=== PATIENT | male | born 1985 | race Two or more races ===

== ENCOUNTER 2020-05-20 07:26 | Outpatient (REF) | payer OTHER, SELFPAY ==
[2020-05-20 08:06] LABS: MANUAL DIFF FLAG NO
[2020-05-20 08:16] LABS: Basophils Percent Auto 0.5 % (0-2); Eosinophils Absolute Auto 0.2 X10*3/uL (0.0-0.4); Eosinophils Percent Auto 3.9 % (0-4); Hematocrit 43.1 % (42-52); Hemoglobin 15.4 g/dl (14.0-18.0); Imm Gran Abs Auto 0.02 X10*3/uL (0.00-0.03); Imm Gran Pct Auto 0.4 % (0.0-0.4); Lymphocytes Absolute Auto 2.2 X10*3/uL (1.2-4.9); Mean Corpuscular HGB Conc 35.7 g/dl (31.0-36.0); Mean Corpuscular Hemoglobin 32.4 pg (27.0-33.0); Mean Corpuscular Volume 90.7 fL (80-98); Mean Platelet Volume 9.4 fL (9.4-12.4); Monocytes Absolute Auto 0.4 X10*3/uL (0.1-1.2); Monocytes Percent Auto 7.9 % (2-11); Neutrophils Absolute Auto 2.6 X10*3/uL (2.0-8.3); Neutrophils Percent Auto 47.3 % (45-73); Platelet Count 266 X10*3/uL (160-400); Red Blood Count 4.75 X10*6/uL (4.60-5.80); Red Cell Distribution Width 12.2 % (11.0-16.0); White Blood Count 5.6 X10*3/uL (4.8-10.8)
[2020-05-20 08:39] LABS: Alanine Aminotransferase 12 U/L (0-40); Albumin Level 4.6 g/dL (3.5-5.0); Alkaline Phosphatase 63 U/L (39-117); Anion Gap 10 (12-20); Aspartate Amino Transferase 15 U/L (5-37); Bilirubin Total 0.9 mg/dL (0.0-1.0); Blood Urea Nitrogen 9 mg/dL (9-16); Calcium 9.2 mg/dL (8.4-10.2); Carbon Dioxide 30 mmol/L (22-29); Chloride 104 mmol/L (96-108); Cholesterol 161 mg/dL; Estimated Glomerular Filt Rate > 60; Glucose Fasting 87 mg/dL (60-99); HDL Cholesterol 44 mg/dL; LDL Cholesterol Calculated 100 mg/dl; Potassium 4.5 mmol/l (3.3-5.1); Sodium 139 mmol/L (135-145); Total Protein 6.9 g/dL (6.5-8.0); Triglycerides 88 mg/dL
[2020-05-20 09:01] LABS: Thyroid Stimulating Hormone 0.74 mIU/mL (0.32-4.0)
== END 2020-05-20 07:27 | disposition home or self-care (01) ==
LOC: HO.LAB 07:26
PROVIDERS: PCP Physician Assistant; Visit Provider Physician Assistant
DX: Z13.1 Encounter for screening for diabetes mellitus (principal); Z13.29 Encounter for screening for other suspected endocrine disorder; Z13.220 Encounter for screening for lipoid disorders
CPT/HCPCS: 36415; 80053; 80061; 84443; 85025

== ENCOUNTER 2020-09-18 08:00 | Outpatient (RCR) | payer OTHER, SELFPAY ==
--- NOTE | 2020-08-21 09:24 | MHC.PT.EP ---
[facility] [place] Office [place] Office [place] Office [address] Halima Gordillo [address] [phone] F: [phone] F: [phone] F: [phone] F: [phone] Physical Therapy Plan of Care Date of Evaluation: 08/21/20 Date of Surgery: Diagnosis: low back pain Assessment: The patient arrived with reduced thoracic mobility, and painful trunk movements. He has normal mobility in his shoulders bilaterally. He has decreased cervical mobility. He has referred pain to his rib cage with thoracic movement which is consistent with a thoracic posterolateral derangement. He felt more central back pain with left thoracic rotation which indicates he likely has a lateral component. He has a long torso and demonstrates poor sitting posture. He will benefit from posture education, body mechanics training, and manual therapy to help reduce his pain. Frequency and Duration: The patient will be seen 2x/week x 4 weeks Short Term Goals: 2 weeks 1.Pt to able to demonstrate proper sitting posture with the use of a lumbar roll to decrease aggravating factors. 2.Pt to be able to demonstrate proper posture for common leisure activities such as crocheting and phone/tablet use. 3.For the patient to demonstrate proper upright sitting posture with use of the lumbar roll to improve compliance and carryover. 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 Pt to be able to return to normal PLOF without limiting pain. 2. Pt to be able to return to overhead reaching without pain or limitation. 3. Pt to be able to manage his pain with selected exercise and stretching regime. Treatment Plan: Modalities to reduce pain, spasms and effusion. Manual therapy to restore motion and function. Therapeutic exercise to improve strength and flexibility. Neuromuscular re-education for posture and balance. Therapeutic activities to return to functional activities of daily living. Electronically signed by: Tiffanie Feldman PT DPT Please sign and return to therapist. Thank you for your referral.
--- NOTE | 2020-09-18 10:38 | MHC.PT.DC ---
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 Pt reports no longer having pain. He has returned to PLOF. He feels muscular pain after a heavy day of work which he reports as normal. He has increased tightness in his thoracic spine which we have addressed with a HEP. He has been issued a HEP including theraband, strengthening exercises which he has shown independence. Electronically signed by: Tiffanie Feldman PT DPT Please sign and return to therapist. Thank you for your referral.
== END 2020-10-12 11:00 | disposition home or self-care (01) ==
LOC: HO.PT 08:00
PROVIDERS: PCP Physician Assistant; Visit Provider Physician Assistant
DX: M54.5 Low back pain (principal); M51.9 Unspecified thoracic, thoracolumbar and lumbosacral intervertebral disc disorder
CPT/HCPCS: 97110; 97112; 97140; 97162

== ENCOUNTER → 2021-07-16 13:00 | Outpatient (REF) | payer OTHER, SELFPAY ==
--- NOTE | 2021-07-16 13:05 | ECG_ITS ---
Hook-up date: 2021-07-16 13:10:00 Duration: 47:59:00 Test Indications: PALPITATIONS Medications: [id number] QRS complexes 11 Ventricular ectopics which represent <1 % of total QRS comp. 17 Supraventricular ectopics which represent <1 % of total QRS comp. * Paced QRS complexs which represent % of total QRS comp. VENTRICULAR ECTOPY 11 Isolated 0 Bigeminal Cycles 0 Couplets 0 Runs 0 Beats in Runs * Beats LONGEST at * BPM at :: -- * Beats FASTEST at * BPM at :: -- SUPRAVENTRICULAR ECTOPY 10 Isolated 0 Couplets 1 Runs 7 Beats in Runs 7 Beats LONGEST at 140 BPM at 13:11:46 2021-07-16 7 Beats FASTEST at 140 BPM at 13:11:46 2021-07-16 HEART RATES 43 MIN at 03:58:40 2021-07-17 74 AVG 159 MAX at 11:16:54 2021-07-17 LONGEST RR 1.4720 secs at 05:11:15 2021-07-18 S-T LEVELS Channel 1 - 128 mm at 13:10:00 2021-07-16 - 128 mm at 13:10:00 2021-07-16 Channel 2 - 128 mm at 13:10:00 2021-07-16 - 128 mm at 13:10:00 2021-07-16 Channel 3 - 128 mm at 03:22:91 -- - 128 mm at 03:22:91 Basic rhythm Normal sinus rhythm No long pause or profound bradycardia Rare ectopics One 7 beat run of SVT at 140 bpm Patient did not report any symptoms in the diary Referred By: Randell Solis Overread By: MARÍA FU MD
== END ==
LOC: HO.CARD 13:00
PROVIDERS: Visit Provider Physician Assistant
DX: R00.2 Palpitations (principal)
CPT/HCPCS: 93226

== ENCOUNTER 2021-07-24 21:26 | Emergency (ER) | payer OTHER, SELFPAY ==
[2021-07-24 22:37] VITALS: BP 120/62; PULSE 88; RESP 18; TEMP 38.3; O2SAT 98
[2021-07-24 23:09] LABS: COVID-19 Test Positive (Negative)
--- NOTE | 2021-07-24 23:34 | ED_ITS ---
HPI - General Adult General Chief complaint: Back Pain/Injury Stated complaint: flu like symptoms Time Seen by Provider: 07/24/21 23:33 Source: patient and per diem interpreter Mode of arrival: ambulatory Limitations: no limitations History of Present Illness HPI narrative: 36-year-old male walked in for evaluation of flu-like symptoms. Patient presented with subjective fever, generalized body ache, back pain, bilateral leg pain, very tired and fatigued, sneezing, no coughing or shortness of breath, patient did not take his COVID vaccination, no recent travel, no recent exposure to sick contacts. Patient tested positive for COVID today. Related Data Home Medications Medication Instructions Recorded Confirmed albuterol sulfate 90 mcg/actuation INHALATION 03/08/21 06/17/21 aerosol inhaler Previous Rx's Medication Instructions Recorded baclofen 20 mg tablet 20 mg PO BID 30 Days #60 tab 06/17/21 citalopram 10 mg tablet (Celexa) 10 mg PO DAILY 30 Days #30 tab 06/17/21 omeprazole 20 mg capsule,delayed 20 mg PO DAILY 30 Days #30 cap 06/17/21 release Allergies Allergy/AdvReac Type Severity Reaction Status Date / Time No Known Allergies Allergy Verified 06/17/21 11:05 [No Known Allergies*] Review of Systems Review of Systems: All other systems are reviewed and are negative Constitutional: Reports as per HPI and Reports no additional constitutional complaints Eyes: Reports as per HPI and Reports no additional eye complaints Reports system reviewed and no additional complaints, except as documented Cardiovascular: Reports as per HPI and Reports no additional cardiovascular complaints Respiratory: Reports as per HPI and Reports no additional respiratory complaints Gastrointestinal: Reports as per HPI and Reports no additional gastrointestinal complaints Genitourinary: Reports no additional female genitourinary complaints Musculoskeletal: Reports no additional musculoskeletal complaints Skin/Breast: Reports system reviewed and no additional complaints, except as docu Psychiatric: Reports no additional psychiatric complaints Endocrine: Reports no additional endocrine complaints Hematologic/Lymphatic: Reports no additional hematologic/lymphatic complaints Allergic/Immunologic: Reports no additional allergic/immunologic complaints Reports system reviewed and no additional complaints, except as documented and Reports Abnormal speech present FOR[facility]LY [facility], [facility] Past Medical History Surgical History No pertinent past surgical history Family History Family History Father Hypertension Mother Murder Maternal Grandmother CAD (coronary artery disease) Hypertension Sister In good health Son In good health Social History Social History Housing: Apartment Alcohol intake: never Patient Tobacco Use Status: Current everyday Tobacco user Tobacco use type: Cigarette Cigarettes Per Day: 10 e-Cigarette/Vaping Use: Never Used Second Hand Smoke Exposure: No Advance Directives: No service: No Current occupational status: employed Current occupational exposures/hazards: No Physical Exam Vital Signs: Vital Signs: Last Vital Signs Temp 101 F H 07/24/21 22:37 Pulse 88 07/24/21 22:37 Resp 18 07/24/21 22:37 BP 120/62 07/24/21 22:37 Pulse Ox 98 07/24/21 22:37 BMI result Body Mass Index 20.0 vital signs have been reviewed as appeared to be correct. Blood pressure normal. Heart rate normal. Respiration rate normal. Temperature elevated. Oxygen saturation normal. Appearance: Alert. Oriented X3. No acute distress. Head: Normal external exam. Normocephalic. Atraumatic. No Davenport signs noted. No raccoon eyes noted Eyes: PERRLA. EOMI. Conjunctiva and sclera normal. Eyelids normal. ENT: TM's Normal. Pharynx normal. Uvula midline. Moist mucous membranes. No trismus noted. No drooling noted. No muffled voice noted. Neck: Normal inspection. Neck supple. FROM. No adenopathy. Thyroid Normal. No meningeal signs. No neck mass noted. CVS: Normal heart rate and rhythm. Heart sound normal. No murmurs noted. Pulses normal throughout. Respiratory: No respiratory distress. Painless inspiration. Breath sounds normal. No wheezes/rales/rhonchi noted. Chest nontender. No accessory muscle usage noted or decreased air movement noted. Abdomen: Soft and nontender. Bowel sounds normal in all 4 quadrants. No distention noted. No organomegaly noted. No visible injury noted. Back: No CVA tenderness. Full range of motion noted. Skin: Skin warm and dry. Normal skin color. Normal skin turgor. No rashes/lesions/lacerations noted. Extremities: No lower extremity edema. Extremities exhibit normal range of motion. Extremities nontender. Neuro: Oriented X 3. Cranial nerve exam: II-XII are grossly intact No motor deficit. No sensory deficit. Reflexes normal. Course Course Course Narrative: assessment and plan. 36-year-old male came in with flu-like symptoms, patient tested positive for COVID, patient was stable vital sign, patient was instructed to take Tylenol for fever, patient lives home with his family and 2 children patient was instructed to quarantine for the next 2 weeks using face mask and frequent hand washing and return if difficulty breathing. Medical Decision Making Lab Data Lab results reviewed: Yes I reviewed the patient's lab results. Labs: Lab Results 07/24/21 Range/Units 22:51 COVID-19 (CARMELITA) Positive A (Negative) COVID-19 Clin Com See Note Discharge Plan Discharge Clinical Impression: COVID-19 virus infection Patient Disposition: Home, Self-Care Instructions: COVID-19 (Coronavirus Disease 2019) (ED) Additional Instructions: use Tylenol if needed for fever, stay home and self quarantine for the next 2 weeks, use of face mask at all times, frequent hand washing. Prescriptions: No Action albuterol sulfate 90 mcg/actuation HFA aerosol inhaler inhalation RF: 0 omeprazole 20 mg capsule,delayed release(DR/EC) 20 mg PO DAILY 30 Days Qty: 30 RF: 0 baclofen 20 mg tablet 20 mg PO BID 30 Days Qty: 60 RF: 3 citalopram [Celexa] 10 mg tablet 10 mg PO DAILY 30 Days Qty: 30 RF: 3 Referrals: Randell Solis PA-C [Primary Care Provider] - 2 days
[2021-07-25] MEDS: Acetaminophen 325 MG TABLET 650 MG PO (00:28)
--- NOTE | 2021-07-25 00:33 | PC.NURSE ---
PT WAS EVALED BY DR HUBBARD. PT POSITIVE FOR COVID. MED WITH TYLENOL FOR FEVER. DRY COUGH NOTED. RESP UNLABORED. TALKING IN FULL SENTENCES. MAHONEY. AMB WITH STEADY GAIT.
== END 2021-07-25 00:36 | disposition home or self-care (01) ==
PROVIDERS: Emergency Provider Emergency Medicine; PCP Physician Assistant
DX: U07.1 COVID-19 (principal); B34.9 Viral infection, unspecified; R50.9 Fever, unspecified; F17.200 Nicotine dependence, unspecified, uncomplicated
CPT/HCPCS: 36415; 87635; 99283

== ENCOUNTER 2021-08-27 08:00 | Outpatient (RCR) | payer OTHER, SELFPAY ==
--- NOTE | 2021-08-27 09:00 | MHC.PT.EP ---
[facility] [place] Office [place] Office [place] Office [address] Halima Gordillo [address] [phone] F: [phone] F: [phone] F: [phone] F: [phone] Physical Therapy Plan of Care Date of Evaluation: Date of Surgery: NA Diagnosis: Segmental and somatic dysfunction of sacral region Assessment: Bran is a 36 year old male who is referred to PT for segmental and somatic dysfunction of sacral region . Bran reports of having insidious onset of back pain about 2 months back. Denies any trauma or fall. On PT examination he presents with 8/10 pain with sitting, standing for more than an hour (needed for work), and bending, TTP along thoraco-lumbar paraspinals, decreased ROM, decreased muscle strength/altered motor control and altered posture. Due to these impairments he has pain/ difficulty with ADLS. 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 He would benefit from skilled PT to address the aforementioned impairments and improve tolerance to functional activities. Frequency and Duration: The patient will be seen 2/week for 5 weeks Short Term Goals: 1. Pt will have 50% decrease in pain which will enable him to sit for meals/ driving in 2 weeks. 2. Pt will be able to move trunk through all planes of motion without pain which will enable him to dress lower body without pain in 3 weeks Fdc Goals: 1. Pt will demonstrate an increase in muscle strength and improve motor control which will enable him to perform work related duties without pain in 4 weeks. 2. Pt will be demonstrate good posture and body mechanics and will be independent with HEP for prevention of symptoms in 5 weeks Treatment Plan: Modalities to reduce pain, spasms and effusion. Manual therapy to restore motion and function. Therapeutic exercise to improve strength and flexibility. Neuromuscular re-education for posture and balance. Therapeutic activities to return to functional activities of daily living. Electronically signed by: Cris Pierre PT DPT Please sign and return to therapist. Thank you for your referral.
--- NOTE | 2021-09-22 14:42 | MHC.PT.DC ---
[facility] [place] Office [place] Office [place] Office [address] Halima Gordillo [address] [phone] F: [phone] F: [phone] F: [phone] F: [phone] Physical Therapy Discharge Report Diagnosis: Segmental and somatic dysfunction of sacral region Date of Surgery: NA Date of Evaluation: 08/27/21 Date of Discharge: 09/22/21 Treatments to Date: 1 Cancellations to Date: 0 No Shows to Date: 0 Discharge Status: Visit Non-compliance Discharge Summary: Bran did not arrive for any PT visits following evaluation. He is therefore being d/c for non compliance. Electronically signed by: Cris Pierre, PT DPT Please sign and return to therapist. Thank you for your referral.
== END 2021-09-22 14:43 | disposition home or self-care (01) ==
LOC: HO.PT 08:00
PROVIDERS: PCP Physician Assistant; Visit Provider Physician Assistant
DX: M99.04 Segmental and somatic dysfunction of sacral region (principal)
CPT/HCPCS: 97110; 97161

== ENCOUNTER 2022-01-11 05:11 | Emergency (ER) | payer OTHER, SELFPAY ==
[2022-01-11 05:30] VITALS: BP 128/73; PULSE 71; RESP 16; O2SAT 99; BMI 21.9
[2022-01-11 05:56] LABS: COVID-19 Test Negative (Negative)
[2022-01-11 05:56] LABS: IDNOW Serial# 16C4AD1C; Influenza A Negative (Negative); Influenza B2 Negative (Negative)
--- NOTE | 2022-01-11 06:26 | ED.GENADULT ---
HPI - General Adult General Chief complaint: General Medical Stated complaint: headache & cough Time Seen by Provider: 01/11/22 05:22 Source: patient Mode of arrival: ambulatory History of Present Illness HPI narrative: 36-year-old male without significant past medical history presents with complaints of headache, cough and states that his is positive for COVID-19. He otherwise denies sore throat, fever, chills, GI or symptoms. Related Data Home Medications Medication Instructions Recorded Confirmed albuterol sulfate 90 mcg/actuation INHALATION 03/08/21 08/11/21 aerosol inhaler Previous Rx's Medication Instructions Recorded omeprazole 20 mg capsule,delayed 20 mg PO DAILY 30 Days #30 cap 06/17/21 release baclofen 20 mg tablet 20 mg PO BID 30 Days #60 tab 08/11/21 citalopram 10 mg tablet (Celexa) 10 mg PO DAILY 30 Days #30 tab 08/11/21 Allergies Allergy/AdvReac Type Severity Reaction Status Date / Time No Known Allergies Allergy Verified 08/11/21 12:16 [No Known Allergies*] Review of Systems Review of Systems: Pertinent positives and negatives as stated in HPI 10 point review of systems is otherwise negative. PMFSH Past Medical History Source: nursing notes reviewed Surgical History No pertinent past surgical history Family History Family History Father Hypertension Mother Murder Maternal Grandmother CAD (coronary artery disease) Hypertension Sister In good health Son In good health Social History Social History Housing: Apartment Alcohol intake: never Patient Tobacco Use Status: Current everyday Tobacco user Tobacco use type: Cigarette Cigarettes Per Day: 10 e-Cigarette/Vaping Use: Never Used Second Hand Smoke Exposure: No Advance Directives: No Advance Directives Information Provided: Yes service: No Current occupational status: employed Current occupational exposures/hazards: No Physical Exam ED Vital Signs: Vital Signs - 24 hr 01/11/22 05:30 Pulse Rate 71 Respiratory Rate 16 Blood Pressure 128/73 Pulse Oximetry 99 BMI result Body Mass Index 21.9 VITAL SIGNS: Reviewed. GENERAL: Well developed, well nourished, in no acute distress. HEAD: Normocephalic/atraumatic EYES: PERRLA, EOMI EARS: Ext canals without abnormality, TMs non-bulging and non-erythematous NOSE: Nares patent bilateral OROPHARYNX: no oral lesions noted, posterior pharynx clear and non-erythematous without noted tonsillar enlargement/erythema/exudates NECK: Supple, no adenopathy LUNGS: Normal breath sounds. No adventitious sounds or accessory muscle use. SpO2<99> CARDIOVASCULAR: Regular rate and rhythm without noted murmurs ABDOMEN: Soft, non-tender, non-distended with bowel sounds. NEUROLOGIC: Alert and oriented x 4. Strength and sensation to light touch were grossly intact x 4. Course Course Course Narrative: 36-year-old male with history and clinical presentation of for review of all investigations of viral syndrome and although patient is negative for COVID-19 in influenza today he was instructed to isolate as per CDC guidelines. Medical Decision Making Lab Data Labs: Lab Results 01/11/22 01/11/22 Range/Units 05:35 05:36 COVID-19 (CARMELITA) Negative (Negative) COVID-19 Clin Com See Note Influenza Type A (JAYLAN) Negative (Negative) Influenza Type B (JAYLAN) Negative (Negative) Influenza A & B Note See Note Discharge Plan Discharge Clinical Impression: Viral syndrome, Lab test negative for COVID-19 virus Patient Disposition: Home, Self-Care Instructions: Viral Syndrome (ED), COVID-19 (Coronavirus Disease 2019) (ED) Additional Instructions: 1. Aunque rios prueba de COVID-19 es negativa, tiene enedina exposici?n positiva a COVID-19 de rios esposa y debe aislarse kareem 5 d?as seg?n las pautas actuales de los CDC. 2. Recomendar Tylenol/ibuprofeno de venta radha seg?n sea necesario para el dolor de ermias, tos, temperaturas superiores a 100.4. 3. Seguimiento con rios proveedor de atenci?n primaria en los pr?ximos 1-2 d?as a kennedy?s de telemedicina. Regrese a la nolvia de emergencias por empeoramiento de los s?ntomas. Prescriptions: No Action albuterol sulfate 90 mcg/actuation HFA aerosol inhaler inhalation 0RF omeprazole 20 mg capsule,delayed release(DR/EC) 20 mg PO DAILY 30 Days Qty: 30 0RF citalopram [Celexa] 10 mg tablet 10 mg PO DAILY 30 Days Qty: 30 3RF baclofen 20 mg tablet 20 mg PO BID 30 Days Qty: 60 3RF Referrals: Dean,James Shukla MD [Primary Care Provider] - Stand Alone Forms: Work/School Release Print Language: Turkmen
== END 2022-01-11 07:15 | disposition home or self-care (01) ==
PROVIDERS: Emergency Provider Student in an Organized Health Care Education/Training Program; PCP Internal Medicine
DX: B34.9 Viral infection, unspecified (principal); Z20.822 Contact with and (suspected) exposure to COVID-19; R51.9 Headache, unspecified; F17.200 Nicotine dependence, unspecified, uncomplicated
CPT/HCPCS: 87502; 87635; 99282; 99283

== ENCOUNTER 2022-03-14 09:24 | Outpatient (REF) | payer OTHER, SELFPAY ==
--- NOTE | ~2022-03-14 | XR_ITS ---
EXAMINATION: XR CERVICAL SPINE XR LUMBAR SPINE CLINICAL INFORMATION: Low back pain. COMPARISON: None TECHNIQUE: 3 views lumbar spine and 4 views cervical spine. FINDINGS: LUMBAR SPINE: There is normal lumbar lordosis. The vertebral heights, alignment and disc heights are normal. No visible acute fracture, dislocation or subluxation seen. The soft tissues are normal. CERVICAL SPINE: There is normal cervical lordosis. The vertebral heights, alignment and disc heights are normal. There is no visible acute fracture, dislocation or subluxation seen. The prevertebral soft tissues are normal. XR/XR cervical spine 3V IMPRESSION: Unremarkable cervical spine exam. Unremarkable lumbar spine exam.
--- NOTE | ~2022-03-14 | XR_ITS ---
EXAMINATION: XR CERVICAL SPINE XR LUMBAR SPINE CLINICAL INFORMATION: Low back pain. COMPARISON: None TECHNIQUE: 3 views lumbar spine and 4 views cervical spine. FINDINGS: LUMBAR SPINE: There is normal lumbar lordosis. The vertebral heights, alignment and disc heights are normal. No visible acute fracture, dislocation or subluxation seen. The soft tissues are normal. CERVICAL SPINE: There is normal cervical lordosis. The vertebral heights, alignment and disc heights are normal. There is no visible acute fracture, dislocation or subluxation seen. The prevertebral soft tissues are normal. XR/XR lumbar spine 2-3V IMPRESSION: Unremarkable cervical spine exam. Unremarkable lumbar spine exam.
== END 2022-03-14 09:25 | disposition home or self-care (01) ==
LOC: HO.XRAY 09:24
PROVIDERS: PCP Physician Assistant; Visit Provider Physician Assistant
DX: M54.50 Low back pain, unspecified (principal); M54.2 Cervicalgia
CPT/HCPCS: 72040; 72100

== ENCOUNTER 2022-09-08 04:13 | Emergency (ER) | payer OTHER, SELFPAY ==
[2022-09-08 04:22] VITALS: BP 120/66; PULSE 53; RESP 16; TEMP 36.8; O2SAT 98; BMI 21.9
--- NOTE | 2022-09-08 04:54 | PC.NURSE ---
pt resting on stretcher in room at this time, reports pain in his face and teeth, he reports he stopped taking the antibiotic yesterday. no respiratory distress at this time
[2022-09-08 05:16] VITALS: BP 129/77; PULSE 64; RESP 19; O2SAT 99
--- NOTE | 2022-09-08 05:17 | ED.GENADULT ---
HPI - General Adult General Chief complaint: Allergic Reaction Stated complaint: took meds, possible allergic reaction Time Seen by Provider: 09/08/22 05:06 Source: patient Mode of arrival: ambulatory Limitations: no limitations History of Present Illness HPI narrative: patient dental caries of both right upper and lower multiple teeth patient to clindamycin and naproxen now complaining of upper abdominal pain and still pain on the right side of the face no fever no chills his pain med is not working Related Data Previous Rx's Medication Instructions Recorded naproxen 500 mg tablet 500 mg PO BID 90 days #180 tabs 02/02/22 nicotine 14 mg/24 hr daily 1 patch transdermal DAILY 14 days 02/02/22 transdermal patch #14 ea omeprazole 20 mg capsule,delayed 20 mg PO DAILY 30 days #30 caps 03/22/22 release albuterol sulfate 90 mcg/actuation 1 puff inhalation Q8H 30 days #8.5 08/04/22 aerosol inhaler (Ventolin HFA) grams baclofen 20 mg tablet 20 mg PO BID 30 days #60 tabs 08/04/22 citalopram 20 mg tablet (Celexa) 20 mg PO DAILY 30 days #30 tabs 08/04/22 ibuprofen 800 mg tablet 800 mg PO TID 30 days #90 tabs 08/04/22 nicotine (polacrilex) 2 mg gum 2 mg buccal Q2H PRN nicotine 08/04/22 cravings 30 days #110 ea propranolol 10 mg tablet 10 mg PO ONCE PRN palpatations 15 08/04/22 days #15 tabs omeprazole 40 mg capsule,delayed 40 mg PO DAILY #30 caps 09/08/22 release tramadol 50 mg tablet 50 mg PO Q6H PRN pain #20 tabs 09/08/22 Allergies Allergy/AdvReac Type Severity Reaction Status Date / Time No Known Allergies Allergy Verified 08/04/22 09:39 [No Known Allergies*] Review of Systems Review of Systems: Yes all other systems are reviewed and are negative [facility] Past Medical History Surgical History No pertinent past surgical history Family History Family History Father Hypertension Mother Murder Maternal Grandmother CAD (coronary artery disease) Hypertension Sister In good health Son In good health Social History Social History Housing: Apartment Alcohol intake: never Patient Tobacco Use Status: Current everyday Tobacco user Tobacco use type: Cigarette Cigarettes Per Day: 10 e-Cigarette/Vaping Use: Never Used Second Hand Smoke Exposure: No Advance Directives: No service: No Current occupational status: employed Current occupational exposures/hazards: No Cognitive needs: No Hearing needs: No Vision needs: No Physical Exam ED Vital Signs: Vital Signs - 24 hr 09/08/22 04:22 09/08/22 05:16 Temperature 98.3 F Pulse Rate 53 64 Respiratory Rate 16 19 Blood Pressure 120/66 129/77 Pulse Oximetry 98 99 Oxygen Delivery Method Room Air Room Air BMI result Body Mass Index 21.9 Appearance: Alert. Oriented X3. No acute distress. ENT: Pharynx normal. Oral Mucosa moist slight swelling of right maxillary area no rash noticed multiple dental caries both upper and lower teeth right side no gum swelling no signs of abscess Neck: Normal inspection. Neck supple. CVS: Normal heart rate and rhythm. Pulses normal. Respiratory: No respiratory distress. Equal air entry bilateral, Abdomen: Soft and nontender. Skin: Skin warm and dry. Normal skin color. Normal skin turgor. Extremities: No lower extremity edema. No calf tenderness Neuro: Oriented X 3. No motor deficit. Medications Administered Discontinued Medications Generic Name Dose Route Start Last Admin Trade Name Freq PRN Reason Stop Dose Admin Al Hydroxide/Mg Hydroxide 30 ml 09/08/22 05:20 09/08/22 05:41 Magnesium Hydrox/Alum Hydrox 30 Ml Oral.Susp PO 09/08/22 05:21 30 ml ONCE ONE Administration Tramadol HCl 50 mg 09/08/22 05:20 09/08/22 05:36 Tramadol Hcl 50 Mg Tablet PO 09/08/22 05:21 50 mg ONCE ONE Administration Discharge Plan Discharge Clinical Impression: Dental caries Patient Disposition: Home, Self-Care Instructions: Toothache (ED) Additional Instructions: follow-up with dentist continue pain medication and antibiotic take them after meals Prescriptions: New tramadol 50 mg tablet 50 mg PO Q6H PRN (Reason: pain) Qty: 20 0RF omeprazole 40 mg capsule,delayed release(DR/EC) 40 mg PO DAILY Qty: 30 0RF No Action omeprazole 20 mg capsule,delayed release(DR/EC) 20 mg PO DAILY 30 Days Qty: 30 3RF naproxen 500 mg tablet 500 mg PO BID 90 Days Qty: 180 1RF nicotine 14 mg/24 hr patch 24 hour 1 patch transdermal DAILY 14 Days Qty: 14 0RF citalopram [Celexa] 20 mg tablet 20 mg PO DAILY 30 Days Qty: 30 3RF propranolol 10 mg tablet 10 mg PO ONCE PRN (Reason: palpatations ) 15 Days Qty: 15 0RF ibuprofen 800 mg tablet 800 mg PO TID 30 Days Qty: 90 0RF baclofen 20 mg tablet 20 mg PO BID 30 Days Qty: 60 3RF nicotine (polacrilex) 2 mg gum 2 mg buccal Q2H PRN (Reason: nicotine cravings) 30 Days Qty: 110 0RF albuterol sulfate [Ventolin HFA] 90 mcg/actuation HFA aerosol inhaler 1 puff inhalation Q8H 30 Days Qty: 8.5 0RF Interventions: ED Discharge Assessment Last Done: 09/08/22 05:39 Discharge Date/Time: 09/08/22 05:40
[2022-09-08] MEDS: traMADoL HCL 50 MG TABLET PO (05:36)
[2022-09-08] MEDS: Magnesium Hydrox/Alum Hydrox 30 ML ORAL.SUSP PO (05:41)
== END 2022-09-08 05:40 | disposition home or self-care (01) ==
PROVIDERS: Emergency Provider Internal Medicine; PCP Physician Assistant
DX: K02.9 Dental caries, unspecified (principal)
CPT/HCPCS: 99283

== ENCOUNTER 2023-08-11 10:45 | Emergency (ER) | payer OTHER, SELFPAY ==
--- NOTE | ~2023-08-11 | US_ITS ---
EXAMINATION: US SCROTUM CLINICAL INFORMATION: Right testicular pain. COMPARISON: None available. TECHNIQUE: A sonogram of the scrotum was performed assessing rincon-scale appearance and color Doppler flow. Spectral Doppler analysis of the arterial and venous flow were performed in the testes bilaterally. FINDINGS: Right testicle is 5.5 x 2.6 x 3.9 cm. Volume 29 mL. The left testicle is 4.4 x 2.1 x 2.9 cm. Volume 15 mL. Importantly the testicles are demonstrating normal arterial and venous flow. Symmetrical. Given the imaging findings I cannot suggest some diffuse minimal microlithiasis in the testicles. Note is made of a varicocele on the left. Small epididymal head cyst on the left measuring 3 mm. Excrescence off the superior aspect of the right testicle may well represent an appendix testis.. Measures 2 mm. On the imaging submitted this could extend off the epididymal head making this a mildly complex epididymal cyst. Note is made of hydroceles bilaterally small. US/US scrotum doppler IMPRESSION: Importantly the testicles are felt to be demonstrating arterial and venous flow bilaterally. The right testicle does measure larger than the left of uncertain etiology. No evidence for testicular lesion but there does appear to be possible scattered microlithiasis. Follow up with urology consultation. Varicocele noted on the left Otherwise small hydroceles are noted and epididymal head cyst on the left hand appendix testes versus complex epididymal cyst on the right
--- NOTE | ~2023-08-11 | US_ITS ---
EXAMINATION: US SCROTUM CLINICAL INFORMATION: Right testicular pain. COMPARISON: None available. TECHNIQUE: A sonogram of the scrotum was performed assessing rincon-scale appearance and color Doppler flow. Spectral Doppler analysis of the arterial and venous flow were performed in the testes bilaterally. FINDINGS: Right testicle is 5.5 x 2.6 x 3.9 cm. Volume 29 mL. The left testicle is 4.4 x 2.1 x 2.9 cm. Volume 15 mL. Importantly the testicles are demonstrating normal arterial and venous flow. Symmetrical. Given the imaging findings I cannot suggest some diffuse minimal microlithiasis in the testicles. Note is made of a varicocele on the left. Small epididymal head cyst on the left measuring 3 mm. Excrescence off the superior aspect of the right testicle may well represent an appendix testis.. Measures 2 mm. On the imaging submitted this could extend off the epididymal head making this a mildly complex epididymal cyst. Note is made of hydroceles bilaterally small. US/US scrotum IMPRESSION: Importantly the testicles are felt to be demonstrating arterial and venous flow bilaterally. The right testicle does measure larger than the left of uncertain etiology. No evidence for testicular lesion but there does appear to be possible scattered microlithiasis. Follow up with urology consultation. Varicocele noted on the left Otherwise small hydroceles are noted and epididymal head cyst on the left hand appendix testes versus complex epididymal cyst on the right
--- NOTE | ~2023-08-11 | XR_ITS ---
EXAMINATION: XR LUMBOSACRAL SPINE CLINICAL INFORMATION: Low back pain COMPARISON: None available. TECHNIQUE: Three views of the lumbosacral spine. FINDINGS: The vertebral bodies and posterior elements are normal. The disc spaces are preserved and the vertebral alignment is normal. The paraspinal soft tissues are normal. XR/XR lumbar spine 2-3V IMPRESSION: Unremarkable lumbar spine examination.
[2023-08-11 11:09] VITALS: BP 129/86; PULSE 86; RESP 18; TEMP 36.6; O2SAT 99; BMI 21.3
--- NOTE | 2023-08-11 11:09 | ED.GENADULT ---
HPI - General Adult General Chief complaint: General Medical Stated complaint: Back Pain Lump on Testicle Etc Time Seen by Provider: 08/11/23 13:06 Source: patient Mode of arrival: ambulatory Limitations: no limitations History of Present Illness HPI narrative: 38-year-old healthy male presents to the ED for right testicular pain lumbar discomfort for 1 month and also back pain for 1 month. Patient's secondary complaint is acid burning sensation in epigastric area of abdomen. Patient denies constipation. Patient denies dysuria, hematuria, penile discharge, or penile lesions. Patient denies any flank pain. Patient denies any trauma to genital area. Related Data Previous Rx's Medication Instructions Recorded naproxen 500 mg tablet 500 mg PO BID 90 days #180 tabs 02/02/22 nicotine 14 mg/24 hr daily 1 patch transdermal DAILY 14 days 02/02/22 transdermal patch #14 ea omeprazole 20 mg capsule,delayed 20 mg PO DAILY 30 days #30 caps 03/22/22 release albuterol sulfate 90 mcg/actuation 1 puff inhalation Q8H 30 days #8.5 08/04/22 aerosol inhaler (Ventolin HFA) grams baclofen 20 mg tablet 20 mg PO BID 30 days #60 tabs 08/04/22 citalopram 20 mg tablet (Celexa) 20 mg PO DAILY 30 days #30 tabs 08/04/22 ibuprofen 800 mg tablet 800 mg PO TID 30 days #90 tabs 08/04/22 nicotine (polacrilex) 2 mg gum 2 mg buccal Q2H PRN nicotine 08/04/22 cravings 30 days #110 ea propranolol 10 mg tablet 10 mg PO ONCE PRN palpatations 15 08/04/22 days #15 tabs omeprazole 40 mg capsule,delayed 40 mg PO DAILY #30 caps 09/08/22 release tramadol 50 mg tablet 50 mg PO Q6H PRN pain #20 tabs 09/08/22 naproxen 500 mg tablet 500 mg PO BID PRN pain 7 days #14 08/11/23 tabs Allergies Allergy/AdvReac Type Severity Reaction Status Date / Time No Known Allergies Allergy Verified 08/11/23 11:09 [No Known Allergies*] Review of Systems Review of Systems: Right testicular pain /lung, low back pain, epigastric acid burning sensation Yes all other systems are reviewed and are negative PMFSH Past Medical History Surgical History No pertinent past surgical history Family History Family History Father Hypertension Mother Murder Maternal Grandmother CAD (coronary artery disease) Hypertension Sister In good health Son In good health Social History Social History Housing: Apartment Alcohol intake: never Patient Tobacco Use Status: Current everyday Tobacco user Tobacco use type: Cigarette Cigarettes Per Day: 10 Smoked in Last 30 Days: Yes e-Cigarette/Vaping Use: Never Used Second Hand Smoke Exposure: No Use of substances other than those prescribed or required for medical reasons: Yes Substance Use Type: Marijuana Advance Directives: No Advance Directives Information Provided: Yes service: No Current occupational status: employed Current occupational exposures/hazards: No Cognitive needs: No Hearing needs: No Vision needs: No Physical Exam ED Vital Signs: Vital Signs - 24 hr 08/11/23 11:09 08/11/23 14:43 Temperature 98 F Pulse Rate 86 Respiratory Rate 18 18 Blood Pressure 129/86 Pulse Oximetry 99 Oxygen Delivery Method Room Air BMI result Body Mass Index 21.3 Const Orientation/consciousness: oriented to person, oriented to place, oriented to time and patient oriented x3 [facility] Head: Yes normal to inspection, Yes No palpable skull fracture present, Yes normocephalic, Yes atraumatic and Yes abrasion Eyes General: appearance normal, both eyes and all related structures Neck Neck: Yes normal visual inspection, Yes full ROM, Yes no lymphadenopathy, Yes no meningeal signs, Yes trachea midline, Yes supple, No anterior neck swelling and No tender Chest Chest palpation & inspection: normal inspection of the chest and normal palpation of entire chest wall Resp Effort & Inspection: normal respiratory effort and able to speak in complete sentences Auscultation: clear to auscultation bilaterally Cardio Jugular venous distension: no JVD Heart sounds: S1 normal heart sound present and S2 normal heart sound present GI Inspection: Yes normal to inspection and No abdominal wall ecchymosis Palpation (GI): Soft to palpation, not firm, nontender, no guarding and not rigid Other: negative for testicular mass/lump. General: Yes no CVA tenderness Penis: uncircumcised Meatus: meatus normal Scrotum: scrotum normal Testes: Testes normal and testicular tenderness on the right Back/Spine/Pelvis Back: no CVA tenderness and back tenderness (mild lumbar spine tenderness) Skin General skin exam: no rashes or lesions noted, elasticity normal and turgor normal Neuro General: oriented to person, oriented to place, oriented to time, patient oriented x3, gait normal, tone normal, moves all extremities, Normal light touch and pain sensation, no meningeal signs, no focal motor deficits, CN's II-XI intact bilaterally and normal sensation to monofilament Extrem General: Yes normal to inspection, Yes full ROM and Yes capillary refill normal Psych Appearance: grossly normal, well kempt and not disheveled Course Course Course Narrative: This is a rapid medical exam: Additional HPI, ROS, PE not included below will be deferred to primary provider. Patient is a 38-year-old Beninese speaking male with history of generalized anxiety disorder, smoking presenting to the ED with complaint of back pain for the past month as well as swelling to right testicle for 1.5 months. States that symptoms began after heavy lifting. States he also has been unable to eat well due to epigastric tightness. Reports feeling associated dyspnea with the epigastric discomfort. States he gets full quickly and has been eating small amounts. Denies nausea or vomiting, diarrhea. Does report constipation but states last BM was this morning. Denies penile discharge but reports delayed ejaculation. Area not visualized in triage due to privacy concerns. Plan: labs, UA, CT NG Medical Decision Making Medical Decision Making MDM Narrative: 38-year-old male history of asthma presents to ED for epigastric acid burning sensation, low back pain, and right testicular pain. Patient denies any recent trauma, dysuria, hematuria, penile discharge, penile lesions, fever, chills, urinary/ bowel incontinence, or any IV drug use. Lab scrotal ultrasound lumbar x-ray ordered. 4:13pm: lumbar x-ray negative for any fractures. Scrotal ultrasound negative for epididymitis or torsion. Shows right testicular micro listhesis. Also has left small variocele. left testicular hydrocelec Differential Diagnosis Differential Diagnoses: The differential diagnosis associated with the presentation includes ( torsion, UTI, dysuria, hematuria, epididymitis,) Lab Data 08/11/23 11:25 08/11/23 11:25 Labs: Lab Results 08/11/23 08/11/23 Range/Units 11:24 11:25 WBC 9.7 (4.8-10.8) X10*3/uL RBC 4.56 L (4.60-5.80) X10*6/uL Hgb 14.4 (14.0-18.0) g/dl Hct 41.0 L (42.0-52.0) % MCV 89.9 (80.0-98.0) fL MCH 31.6 (27.0-33.0) pg MCHC 35.1 (31.0-36.0) g/dl RDW 13.2 (11.0-16.0) % Plt Count 308 (160-400) X10*3/uL MPV 8.7 L (9.4-12.4) fL Immature Gran % (Auto) 0.3 (0.0-0.4) % Neut % (Auto) 68.4 (45-73) % Lymph % (Auto) 24.8 (20-40) % Evangeline % (Auto) 5.0 (2-11) % Eos % (Auto) 1.1 (0-4) % Baso % (Auto) 0.4 (0-2) % Lymph # (Auto) 2.4 (1.2-4.9) X10*3/uL Evangeline # (Auto) 0.5 (0.1-1.2) X10*3/uL Eos # (Auto) 0.1 (0.0-0.4) X10*3/uL Baso # (Auto) 0.0 (0.0-0.2) X10*3/uL Abs Immat Gran (auto) 0.03 (0.00-0.03) X10*3/uL Absolute Neuts (auto) 6.6 (2.0-8.3) x10*3/uL Absolute Nucleated RBC 0.000 (0.0-0.012) X10*3/uL Nucleated RBC % (auto) 0.0 (0.0-0.2) /100WBC Sodium 140 (135-145) mmol/L Potassium 4.0 (3.3-5.1) mmol/L Chloride 103 (96-108) mmol/L Carbon Dioxide 28 (22-29) mmol/L Anion Gap 13 (12-20) BUN 9 (9-16) mg/dL Creatinine 0.87 (0.5-1.4) mg/dL Estim Creat Clear Calc 128.1 Estimated GFR > 60 Random Glucose 80 (60-115) mg/dL Calcium 9.8 D (8.4-10.2) mg/dL Total Bilirubin 0.6 (0.0-1.0) mg/dL AST 20 (5-37) U/L ALT 16 (0-40) U/L Alkaline Phosphatase 60 (39-117) U/L Total Protein 7.4 (6.5-8.0) g/dL Albumin 4.5 (3.5-5.0) g/dL Lipase 33 (8-78) U/L Urine Color Yellow Urine Appearance Clear Urine pH 7.0 (5.0-9.0) Ur Specific Brain[place] <= 1.005 (1.005-1.025) Urine Protein Negative (Neg-Trace) mg/dL Urine Glucose (UA) Negative (Negative) mg/dL Urine Ketones Negative (Negative) mg/dL Urine Blood Negative (Negative) Urine Nitrite Negative (Negative) Ur Leukocyte Esterase Negative (Negative) Chlam trachomat DNA PCR NOT DETECTED (Not Detect.) N.gonorrhoeae DNA (PCR) NOT DETECTED (Not Detect.) Discharge Plan Discharge Clinical Impression: Scrotum pain, Back pain, Varicocele, Hydrocele Patient Disposition: Home, Self-Care Instructions: Hydrocele (ED), Varicocele (ED), Testicle Pain (ED), Back Pain (ED), Scrotal Pain (ED) Additional Instructions: La ecograf?a result? negativa para torsi?n ov?umer o epididimitis. Trevino orina result? negativa para infecci?n o clamidia/gonorrea. La ecograf?a mostr? dep?sito de calcio en el test?culo derecho, adem?s de hidrocele y varicocele. Necesitar? seguimiento con ur?logo. Se le entregar? copia de la ecograf?a. Regrese al servicio de urgencias de inmediato si presenta dolor abdominal, n?useas, v?mitos, fiebre, escalofr?os, dolor en el costado, dolor testicular, secreci?n del pene, lesiones del pene o cualquier otro s?ntoma preocupante. the ultrasound came back negative for ovarian torsion or epididymitis. Your urine came back negative for infection or chlamydia/gonorrhea. Ultrasound showed calcium deposit right testicle also hydrocele and varicocele. You will need follow-up with urologist. He will be given copy of ultrasound. Return to the ED immediately for any abdominal pain, nausea, vomiting, fever, chills, flank pain, testicular pain, penile discharge, penile lesions, or any other concerning symptoms. Follow up with PCP. Prescriptions: New naproxen 500 mg tablet 500 mg PO BID PRN (Reason: pain) 7 Days Qty: 14 0RF No Action omeprazole 20 mg capsule,delayed release(DR/EC) 20 mg PO DAILY 30 Days Qty: 30 3RF tramadol 50 mg tablet 50 mg PO Q6H PRN (Reason: pain) Qty: 20 0RF omeprazole 40 mg capsule,delayed release(DR/EC) 40 mg PO DAILY Qty: 30 0RF naproxen 500 mg tablet 500 mg PO BID 90 Days Qty: 180 1RF nicotine 14 mg/24 hr patch 24 hour 1 patch transdermal DAILY 14 Days Qty: 14 0RF citalopram [Celexa] 20 mg tablet 20 mg PO DAILY 30 Days Qty: 30 3RF propranolol 10 mg tablet 10 mg PO ONCE PRN (Reason: palpatations ) 15 Days Qty: 15 0RF ibuprofen 800 mg tablet 800 mg PO TID 30 Days Qty: 90 0RF baclofen 20 mg tablet 20 mg PO BID 30 Days Qty: 60 3RF nicotine (polacrilex) 2 mg gum 2 mg buccal Q2H PRN (Reason: nicotine cravings) 30 Days Qty: 110 0RF albuterol sulfate [Ventolin HFA] 90 mcg/actuation HFA aerosol inhaler 1 puff inhalation Q8H 30 Days Qty: 8.5 0RF Referrals: [facility] [Provider Group] ( testicular pain) Interventions: ED Discharge Assessment Last Done: 08/11/23 16:28 Discharge Date/Time: 08/11/23 16:30 Print Language: Beninese
[2023-08-11 11:30] LABS: MANUAL DIFF FLAG NO
[2023-08-11 11:38] LABS: Basophils Percent Auto 0.4 % (0-2); Eosinophils Absolute Auto 0.1 X10*3/uL (0.0-0.4); Eosinophils Percent Auto 1.1 % (0-4); Hemoglobin 14.4 g/dl (14.0-18.0); Imm Gran Abs Auto 0.03 X10*3/uL (0.00-0.03); Imm Gran Pct Auto 0.3 % (0.0-0.4); Lymphocytes Absolute Auto 2.4 X10*3/uL (1.2-4.9); Lymphocytes Percent Auto 24.8 % (20-40); Mean Corpuscular HGB Conc 35.1 g/dl (31.0-36.0); Mean Corpuscular Hemoglobin 31.6 pg (27.0-33.0); Mean Corpuscular Volume 89.9 fL (80.0-98.0); Mean Platelet Volume 8.7 fL (9.4-12.4); Monocytes Absolute Auto 0.5 X10*3/uL (0.1-1.2); Neutrophils Absolute Auto 6.6 x10*3/uL (2.0-8.3); Neutrophils Percent Auto 68.4 % (45-73); Platelet Count 308 X10*3/uL (160-400); Red Blood Count 4.56 X10*6/uL (4.60-5.80); Red Cell Distribution Width 13.2 % (11.0-16.0); White Blood Count 9.7 X10*3/uL (4.8-10.8)
[2023-08-11 11:39] LABS: Appearance Urine Clear; Color Urine Yellow; Glucose Urine UA Negative (Negative); Leukocyte Esterase Urine Negative (Negative); Nitrite Urine Negative (Negative); Specific Gravity - Urine <= 1.005 (1.005-1.025); Urine Blood Negative (Negative); Urine Ketones Negative (Negative); Urine Protein Negative (Neg-Trace)
[2023-08-11 11:54] LABS: Alanine Aminotransferase 16 U/L (0-40); Albumin Level 4.5 g/dL (3.5-5.0); Alkaline Phosphatase 60 U/L (39-117); Anion Gap 13 (12-20); Aspartate Amino Transferase 20 U/L (5-37); Bilirubin Total 0.6 mg/dL (0.0-1.0); Blood Urea Nitrogen 9 mg/dL (9-16); Calcium 9.8 mg/dL (8.4-10.2); Carbon Dioxide 28 mmol/L (22-29); Chloride 103 mmol/L (96-108); Creatinine Clr Calc Pharmacy 128.1; Estimated Glomerular Filt Rate > 60; Glucose Random 80 mg/dL (60-115); Sodium 140 mmol/L (135-145); Total Protein 7.4 g/dL (6.5-8.0)
[2023-08-11 13:25] LABS: CT PCR NOT DETECTED (Not Detect.); NG PCR NOT DETECTED (Not Detect.)
[2023-08-11 13:57] LABS: Lipase 33 U/L (8-78)
[2023-08-11 14:43] VITALS: RESP 18
== END 2023-08-11 16:30 | disposition home or self-care (01) ==
PROVIDERS: Physician Assistant; Registered Nurse Emergency; Emergency Provider Emergency Medicine; PCP Physician Assistant
DX: N50.819 Testicular pain, unspecified (principal); N43.3 Hydrocele, unspecified; M54.50 Low back pain, unspecified; R10.13 Epigastric pain; Z72.89 Other problems related to lifestyle
CPT/HCPCS: 0353U; 36415; 72100; 76870; 80053; 81003; 83690; 85025; 93975; 99284

== ENCOUNTER 2023-11-02 15:17 | Outpatient (AMB) | payer OTHER, SELFPAY ==
[2023-11-02 15:34] VITALS: BP 100/72; PULSE 76; O2SAT 98; BMI 21.4
--- NOTE | 2023-11-02 15:34 | MHC.PC.OV ---
Vital Signs 11/02/23 15:34 Height 6 ft 3 in Weight 171 lb 6 oz BMI 21.4 BP 100/72 Blood Pressure Location Lt brachial Position Sitting Pulse 76 Pulse Source Pulse Oximeter Pulse Oximetry (%) 98 Oxygen Delivery Method Room Air Intake Visit Reasons: PE/Urology referral Intake Note: The patient is here today for a physical examination. They were previously seen at [facility] in July 2023 for scrotum pain, back pain, varicocele, and hydrocele. The patient will require a referral to urology. Welding Technician Required: Yes Welding Technician Language: Lebanese Accompanied by: Self / Same As Patient Allergies No Known Allergies [No Known Allergies*] Allergy (Verified 11/02/23 15:57) Medication List - Last Reconciled 11/02/23 by Randell Solis PA-C albuterol sulfate 90 mcg/actuation (Ventolin HFA) 1 puff inhalation Q8H 30 days baclofen 20 mg PO BID 30 days citalopram (Celexa) 20 mg PO DAILY 30 days ibuprofen 800 mg PO TID 30 days naproxen 500 mg PO BID PRN 7 days nicotine 1 patch transdermal DAILY 14 days nicotine (polacrilex) 2 mg buccal Q2H PRN 30 days omeprazole 40 mg PO DAILY propranolol 10 mg PO ONCE PRN 15 days tramadol 50 mg PO Q6H PRN Tobacco use date assessed: 11/02/23 Dental Screening Dental Screen Date: 11/02/23 Did you have a dental visit in the last 12 months?: Yes Did you have a dental problem in the last 6 months where you did not have access to dental care?: No Was dental information given to patient?: Patient has dentist HPI PE/Urology referral HPI Details Patient is a 38-year-old male here today for an annual physical. ? Patient has a past medical history is if can not for generalized anxiety disorder, intermittent SVT , chronic lumbar spine pain. Patient recently seen at the ER in July 2023 for scrotal pain, ultrasound did show breath Adderall hydrocele varicoceles with microliths. Urology evaluation recommend. He reports having some difficulties with his erections during sexual activity. He is unclear if this is due to his anxiety .. BARRINGTON:? started celexa which he report does help him reduce his anxiety. He reports he still has increased anxiety and anger from time to time with lichen increased dose of his anxiety medication. .. Tobacco dependence:? He reports he has cut down his cigarette smoking. Still smokes a few cigarettes per day. Does have nicotine gum available to him .. Lumbar spine pain:? He reports he continues to chronic lumbar spine pain though has been manageable.? He reports recently having more neck pain radiating into his upper extremities.? He denies any trauma to his neck. Has done PT in the past which has helped some. He is able to continue doing all his activities of daily living and full-time work. He is willing to see back specialist for evaluation of possible cortisone injection. Continues to having pain into his lower extremities bilaterally. Vaccines: Up-to-date with tetanus, Needs pcv PFSH Surgical History No pertinent past surgical history Family History Father Hypertension Mother Murder Maternal Grandmother CAD (coronary artery disease) Hypertension Sister In good health Son In good health Social History Housing: Apartment Alcohol intake: never Patient Tobacco Use Status: Current everyday Tobacco user Tobacco use type: Cigarette Cigarettes Per Day: 10 e-Cigarette/Vaping Use: Never Used Second Hand Smoke Exposure: No Substance Use Type: Marijuana service: No Current occupational status: employed Current occupational exposures/hazards: No Cognitive needs: No Hearing needs: No Vision needs: No Questionnaire PHQ-9 Over the last 2 weeks, how often have you been bothered by any of the following problems? 1. Little interest or pleasure in doing things: not at all 2. Feeling down, depressed, or hopeless: not at all 3. Trouble falling or staying asleep, or sleeping too much: not at all 4. Feeling tired or having little energy: not at all 5. Poor appetite or overeating: not at all 6. Feeling bad about yourself - or that you are a failure or have let yourself or your family down: not at all 7. Trouble concentrating on things, such as reading the newspaper or watching television: not at all 8. Moving or speaking so slowly that other people could have noticed. Or the opposite - being so fidgety or restless that you have been moving around a lot more than usual: not at all 9. Thoughts that you would be better off or of hurting yourself in some way: not at all Total score: 0 Depression Screening Interpretation: Negative Depression Screening Done: Yes 26055 - PHQ-9 Billing: Yes Source: Developed by Drs. Mundo Hartley, Arcelia Falcon, Donny Jaramillo and colleagues, with an educational tami from [employer]. Thrive Questionnaire Date Thrive assessed: 11/02/23 I am a: Patient What is your living situation today?: I have a steady place to live Within the past 12 months, did the food you bought not last and you didn't have the money to get more?: Never true Within the past 12 months, did you worry whether your food would run out before you got money to buy more?: Never true Do you have trouble paying for medicines?: No Do you have trouble getting transportation to medical appointments?: No Do you have trouble paying your heating and electricity bill?: No Do you have trouble taking care of your child, family member or friend?: No Do you have trouble with day-to-day activities such as bathing, preparing meals, shopping, managing finances, etc.?: No Are you currently unemployed and looking for a job?: No Are you interested in more education?: No Please select the resources that you would like help with: None Currently or been in a relationship where the following occur: no concerns reported THRIVE Score: 0 AUDIT C Alcohol Use Questionnaire (AUDIT-C) 1. How often do you have a drink containing alcohol?: Never 3. How often do you have six or more drinks on one occasion?: Never Total Score: 0 BARRINGTON-7 AMB Questionnaire BARRINGTON-7 Date BARRINGTON - 7 assessed: 11/02/23 Feeling nervous, anxious, or on edge: 3 = Nearly every day Not being able to stop or control worryin = Nearly every day Worrying too much about different things: 3 = Nearly every day Trouble relaxin = Nearly every day Being so restless that it is hard to sit still: 3 = Nearly every day Becoming easily annoyed or irritable: 3 = Nearly every day Feeling afraid as if something awful might happen: 0 = Not at all Total BARRINGTON-7 score (0-4 normal; 5-9 mild; 10-14 moderate; 15-21 severe): 18 Source: Developed by Drs. Mundo Hartley, Arcelia Falcon, Donny Jaramillo and colleagues, with an educational tami from [employer]. BARRINGTON-7 Assessment Billing BARRINGTON-7 Assessment Tool: BARRINGTON-7 Assessment 90442 Review of Systems Const Denies body aches, Denies chills, Denies excessive sweating, Denies fatigue, Denies fever(s) and Denies headache(s) Eyes Denies blurry vision ENT Denies dysphagia, Denies vertigo, Denies dizziness, Denies headache(s), Denies hearing loss and Denies tinnitus Card Denies chest pain, Denies chest pain with activity, Denies syncope, Denies irregular heart rhythm and Denies dyspnea Resp Denies chest congestion, Denies cough, Denies hemoptysis, Denies dyspnea and Denies wheezing GI Denies abdominal pain, Denies melena, Denies hematochezia, Denies coffee ground emesis, Denies dysphagia, Denies diarrhea, Denies nausea and Denies vomiting Denies difficulty urinating, Denies dysuria, Denies urinary frequency, Denies urinary hesitancy and Denies urinary urgency Musc Denies arthralgias, Denies limited range of motion, Denies muscle cramps and Denies muscle weakness Skin/Breast Denies rash and Denies skin ulcer Neuro Denies Abnormal speech present, Denies confusion, Denies vertigo, Denies dizziness, Denies syncope, Denies headache(s), Denies memory loss and Denies seizure-like activity Psych Denies anxiety, Denies confusion, Denies depression, Denies memory loss, Denies panic attacks and Denies paranoia Endo Denies excessive sweating, Denies fatigue, Denies flushing, Denies polydipsia and Denies polyuria Aller/Immun Denies wheezing Physical exam (Primary Care) Vital Signs: Last Vital Signs Pulse 76 11/02/23 15:34 BP 100/72 11/02/23 15:34 Pulse Ox 98 11/02/23 15:34 Oxygen Delivery Method Room Air 11/02/23 15:34 BMI result Body Mass Index 21.4 Tobacco/Smoking Status: Tobacco use Status Tobacco use date assessed 11/02/23 11/02/23 15:43 Patient Tobacco Use Status Current everyday Tobacco 11/02/23 15:34 Tobacco use type Cigarette 11/02/23 15:34 e-Cigarette/Vaping Use Never Used 11/02/23 15:34 PHQ-9: PHQ-9 Score PHQ-9: Total score 0 11/02/23 15:40 Depression Screening Interpretation: Negative Thrive Assessment: Date of Thrive Assessment Date Thrive assessed 11/02/23 11/02/23 15:40 Currently or been in a relationship where the following occur: no concerns reported Const General: cooperative, comfortable, no acute distress, alert and awake; No confusion Orientation/consciousness: oriented to person, oriented to place, patient oriented x3 and No confusion HENMT Head: Yes normocephalic Ears: external ears normal and TM's normal bilaterally Face and sinus: No sinus tenderness Mouth: Normal oral and palatal mucosa present and tongue normal Teeth and gingiva: dentition normal and gingiva normal Throat: Yes posterior oropharynx normal, Yes tonsils normal and Yes uvula midline Eyes Conjunctivae: conjunctivae normal Sclerae: sclerae normal Pupils: Equal, round and reactive pupils present EOM: EOMs intact bilaterally Direct Ophthalmoscopy: No no photophobia Neck Neck: Yes no lymphadenopathy, No tender and Yes no JVD Thyroid: Thyroid normal Carotids: no bruits Chest Chest palpation & inspection: no tenderness Resp Effort & Inspection: normal respiratory effort, no audible wheezes, not labored and no stridor Auscultation: no crackles, no rales, no rhonchi and no wheezes Cardio Jugular venous distension: no JVD Rate: regular rate, not bradycardic and not tachycardic Rhythm: regular rhythm Bruits: no carotid bruits Peripheral pulses: Peripheral pulses 2+ throughout GI Inspection: Yes normal to inspection, No abdominal wall ecchymosis and No visible herniation Palpation (GI): Soft to palpation, nontender, no guarding, not rigid and No hepatosplenomegaly present Auscultation: normoactive bowel sounds General: Yes no CVA tenderness Back/Spine/Pelvis Back: no CVA tenderness and No back tenderness Cervical Spine: cervical ROM normal Thoracic/Lumbar Spine: thoracic and lumbar spine normal to inspection, straight leg raise negative bilaterally, No thoraco-lumbar ROM limited and No lumbar spinal tenderness Skin Lesions: no lesions Rashes: no rashes Wounds: no wounds Neuro General: oriented to person, oriented to place, patient oriented x3, CN's II-XI intact bilaterally and No confusion Cranial nerves: Yes Equal, round and reactive pupils present and Yes Normal accommodation reflex present Cognition (Neuro): normal cognition Speech: No Abnormal speech present Gait exam (Neuro): Normal gait present Motor exam (neuro): 5/5 motor strength present throughout Extrem Right upper extremity: full ROM; no cyanosis Left upper extremity: full ROM; no cyanosis Right lower extremity: no edema Left lower extremity: no edema Psych Appearance: grossly normal Mental Status: mental status grossly normal Affect: normal affect Attitude: cooperative Thought process: Normal thought process present Assessment and Plan Assessment & Plan (1) Annual physical exam: Code(s): Z00.00 - Encounter for general adult medical examination without abnormal findings (2) Tobacco dependence: Code(s): F17.200 - Nicotine dependence, unspecified, uncomplicated Plan: Patient does understand he needs to quit smoking and has been using nicotine patches from time to time. He reports he has drastically cut down his smoking. (3) BARRINGTON (generalized anxiety disorder): Code(s): F41.1 - Generalized anxiety disorder Plan: Patient's BARRINGTON-7 score positive for anxiety which has been an existing condition for him. He continues on Celexa with decent affect. Also uses propranolol as needed for heart palpitations with to have been effective. He has not interested in speaking with a mental health therapist at this time. (4) Lumbar spine pain: Code(s): M54.5 - Low back pain Plan: Patient reports his lumbar spine pain has been manageable though still has pain radiating down both bilateral lower extremities. He has done physical therapy in the past which has helped some and still does home exercises. He does use naproxen regularly and tramadol as needed for pain scales of 8-10. (5) Erectile dysfunction: Code(s): N52.9 - Male erectile dysfunction, unspecified Qualifiers: Erectile dysfunction type: drug-induced Qualified Code(s): N52.2 - Drug-induced erectile dysfunction Plan: His erectile dysfunction seems to be psychogenic.. Could be related to SSRI Will supply patient with Cialis 10 mg to use before sexual activity Orders: Orders Comprehensive [place]. Panel Fast Today Z13.1 - Encounter for screening for diabetes mellitus Pneumococcal 20 Immunization Today F17.200 - Nicotine dependence, unspecified, uncomplicated, Z23 - Encounter for immunization Medications: New tadalafil (Cialis) administer approximately 30min before sexual activity; do not use more than 1 dose per 24hrs 10 mg PO DAILY 7 days PRN 7 tabs 0RF sexual activity N52.2 - Drug-induced erectile dysfunction pneumoc 20-osbaldo conj-dip cr(PF) 0.5 mL IM ONCE 0.5 mL 0RF F17.200 - Nicotine dependence, unspecified, uncomplicated, Z23 - Encounter for immunization Changed From tramadol 50 mg PO Q6H PRN 20 tabs 0RF pain M54.5 - Low back pain To tramadol 50 mg PO Q6H 5 days PRN 20 tabs 0RF pain M54.5 - Low back pain Refilled ibuprofen 800 mg PO TID 30 days 90 tabs 0RF M54.5 - Low back pain baclofen 20 mg PO BID 30 days 60 tabs 3RF M79.10 - Myalgia, unspecified site citalopram (Celexa) 20 mg PO DAILY 30 days 30 tabs 3RF F41.1 - Generalized anxiety disorder propranolol 10 mg PO ONCE 15 days PRN 15 tabs 0RF palpatations R00.2 - Palpitations Coding Level of Care Code Est Pt Prev Care [id number]([id number]) Diagnoses Annual physical exam Z00.00 Tobacco dependence F17.200 BARRINGTON (generalized anxiety disorder) F41.1 Lumbar spine pain M54.5 Drug-induced erectile dysfunction N52.2 Erectile dysfunction type: drug-induced Additional Codes BARRINGTON-7 Assessment Billing - BARRINGTON-7 Assessment Tool: BARRINGTON-7 Assessment 57440 ([id number])
== END 2023-11-02 16:28 | disposition home or self-care (01) ==
PROVIDERS: PCP Physician Assistant; Visit Provider Physician Assistant
DX: Z00.00 Encounter for general adult medical examination without abnormal findings (principal); F17.200 Nicotine dependence, unspecified, uncomplicated; F41.1 Generalized anxiety disorder; Z23 Encounter for immunization; M54.50 Low back pain, unspecified; N52.2 Drug-induced erectile dysfunction
CPT/HCPCS: 90471; 90677; 99395

== ENCOUNTER 2023-12-26 11:06 | Outpatient (AMB) | payer OTHER, SELFPAY ==
--- NOTE | 2023-12-26 11:37 | MHC.OFFVIS ---
Intake Visit Reasons: bilateral hydroceles, varicocele and cysts Intake Note: New Patient presents for initial visit for bilateral hydroceles, varicocele and cysts Urology Medications: none Blood Thinner: none Power Distribution Engineer Required: Yes Power Distribution Engineer Name: MARIE CHANDAURELIAKami Accompanied by: Self / Same As Patient Allergies No Known Allergies [No Known Allergies*] Allergy (Verified 12/26/23 12:04) Medication List - Last Reconciled 12/26/23 by SE MartinP- albuterol sulfate 90 mcg/actuation (Ventolin HFA) 1 puff inhalation Q8H 30 days baclofen 20 mg PO BID 30 days citalopram (Celexa) 20 mg PO DAILY 30 days nicotine 1 patch transdermal DAILY 14 days nicotine (polacrilex) 2 mg buccal Q2H PRN 30 days omeprazole 40 mg PO DAILY propranolol 10 mg PO ONCE PRN 15 days tadalafil (Cialis) 20 mg (2 x 10 mg) PO .PRN PRN 30 days HPI Comments Details: Bran is a pleasant 38-year-old [place]er-speaking male patient of Dr. Solis. He presents to the office today as a new patient for erectile dysfunction as well as right-sided scrotal pain he has been experiencing. In discussion with the patient today reports having seeked emergency room care approximately 5 months ago at which time a scrotal ultrasound was ordered and performed. These results reviewed with the patient today. Bilateral arterial and venous flow noted. Small bilateral hydroceles noted. Varicocele noted on the left. Epididymal head cyst on the left hand appendix testes versus complex epididymal cyst on the right. In assessment of the patient today small bilateral hydroceles noted as well as bilateral epididymal cysts. No pain elicited on exam. No open areas, lesions, or masses palpated. He does report noting issues with obtaining and maintaining his erections. He does report smoking recreational marijuana daily as well as nicotine. Discussed at length potential causes for ED. He otherwise denies any bothersome urinary issues. He denies urinary urgency, urinary frequency, incontinence, nocturia, hematuria, dysuria, foul smelling urine, changes to urinary stream, flank pain, fever, and or chills. He is happy with his current voiding parameters. In office urinalysis results reviewed with the patient today. Discussed at length potential causes of hydroceles as well as epididymal head cysts. He otherwise offers no other issues or concerns at this time. [facility] Surgical History No pertinent past surgical history Family History Father Hypertension Mother Murder Maternal Grandmother CAD (coronary artery disease) Hypertension Sister In good health Son In good health Social History Housing: Apartment Alcohol intake: never Patient Tobacco Use Status: Current everyday Tobacco user Tobacco use type: Cigarette Cigarettes Per Day: 10 e-Cigarette/Vaping Use: Never Used Second Hand Smoke Exposure: No Substance Use Type: Marijuana service: No Current occupational status: employed Current occupational exposures/hazards: No Cognitive needs: No Hearing needs: No Vision needs: No Review of Systems Const All systems reviewed & are unremarkable except as noted in HPI and below Physical Exam Const General: cooperative, healthy appearing, comfortable, no acute distress, well developed, alert and awake Nutritional Appearance: thin Orientation/consciousness: patient oriented x3 Limitations: no limitations HEENT Head: Yes normal to inspection, Yes normocephalic and Yes atraumatic Ears: hearing grossly normal bilaterally Eyes General: appearance normal, both eyes and all related structures Neck Neck: Yes normal visual inspection and Yes trachea midline Chest Chest palpation & inspection: normal inspection of the chest Resp Effort & Inspection: normal respiratory effort and able to speak in complete sentences Cardio Rate: regular rate GI Inspection: Yes normal to inspection General: Yes no CVA tenderness Penis: normal penis Meatus: meatus normal Scrotum: Hydrocele present bilateral (small ) Testes: other (as per HPI) Back/Spine/Pelvis Back: no CVA tenderness Skin General skin exam: no rashes or lesions noted Neuro General: patient oriented x3 Extrem General: Yes normal to inspection Psych Appearance: grossly normal and well kempt Mental Status: mental status grossly normal Speech and movement: Normal speech and movement present and Clear speech present Affect: normal affect Attitude: cooperative Thought process: Normal thought process present Thought content: Normal thought content present Insight: Fair insight present (Psych) Judgement: Fair judgement present (Psych) Results AMB Urinalysis, Automated UA Leukoctes 0 Elizabeth/uL Last Edit by Henrique Jiménez on 12/26/23 11:50 UA Nitrite Negative Last Edit by Henrique Jiménez on 12/26/23 11:50 UA Urobilinogen 0.2 mg/dL Last Edit by Henrique Jiménez on 12/26/23 11:50 UA Protein 0 mg/dL Last Edit by Henrique Jiménez on 12/26/23 11:50 UA pH 6.5 Last Edit by Henrique Jiménez on 12/26/23 11:50 UA Blood 0 Rosalio/uL Last Edit by Henrique Jiménez on 12/26/23 11:50 UA Specific [place] 1.005 Last Edit by Henrique Jiménez on 12/26/23 11:50 UA Ketone Negative Last Edit by Henrique Jiménez on 12/26/23 11:50 UA Bilirubin 0 mg/dL Last Edit by Henrique Jiménez on 12/26/23 11:50 UA Glucose 0 mg/dL Last Edit by Henrique Jiménez on 12/26/23 11:50 Results Reviewed Results Reviewed: Date of Service: 08/11/23 EXAMINATION: US SCROTUM FINDINGS: Right testicle is 5.5 x 2.6 x 3.9 cm. Volume 29 mL. The left testicle is 4.4 x 2.1 x 2.9 cm. Volume 15 mL. Importantly the testicles are demonstrating normal arterial and venous flow. Symmetrical. Given the imaging findings I cannot suggest some diffuse minimal microlithiasis in the testicles. Note is made of a varicocele on the left. Small epididymal head cyst on the left measuring 3 mm. Excrescence off the superior aspect of the right testicle may well represent an appendix testis.. Measures 2 mm. On the imaging submitted this could extend off the epididymal head making this a mildly complex epididymal cyst. Note is made of hydroceles bilaterally small. IMPRESSION: Importantly the testicles are felt to be demonstrating arterial and venous flow bilaterally. The right testicle does measure larger than the left of uncertain etiology. No evidence for testicular lesion but there does appear to be possible scattered microlithiasis. Follow up with urology consultation. Varicocele noted on the left Otherwise small hydroceles are noted and epididymal head cyst on the left hand appendix testes versus complex epididymal cyst on the right Assessment & Plan Assessment & Plan (1) Erectile dysfunction: Code(s): N52.9 - Male erectile dysfunction, unspecified Category: Medical Qualifiers: Erectile dysfunction type: drug-induced Qualified Code(s): N52.2 - Drug-induced erectile dysfunction (2) Bilateral hydrocele: Code(s): N43.3 - Hydrocele, unspecified Category: Medical (3) Epididymal cyst: Code(s): N50.3 - Cyst of epididymis Category: Medical Plan In office urinalysis results reviewed with the patient today; as noted above. Recent scrotal ultrasound results reviewed with the patient today; as noted above. Will obtain testosterone free and total for further assessment evaluation. Discussed at length importance of limiting/quitting recreational marijuana as well as nicotine dependence for overall health and well-being as well as to assist with obtaining and maintaining his erections. Discussed at length potential causes of ED, hydroceles, and epididymal head cysts. He otherwise denies any bothersome urinary issues. He reports be happy with current voiding parameters. Will continue with surveillance monitoring of bilateral hydroceles and epididymal head cysts. Prescription provided for p.rjulia Gallagherlis. Follow-up in 1-3 months with lab to be completed prior; or sooner with any issues, concerns, and or questions. Orders: Orders AMB Urinalysis Automated Today Z13.9 - Encounter for screening, unspecified Testosterone, Free/Total Today E11.69 - Type 2 diabetes mellitus with other specified complication, N52.1 - Erectile dysfunction due to diseases classified elsewhere Medications: Changed From tadalafil (Cialis) administer approximately 30min before sexual activity; do not use more than 1 dose per 24hrs 10 mg PO DAILY 7 days PRN 7 tabs 0RF sexual activity N52.2 - Drug-induced erectile dysfunction To tadalafil (Cialis) administer approximately 30min before sexual activity; do not use more than 1 dose per 24hrs [id number] [facility] [id number] Member [id number] 20 mg (2 x 10 mg) PO .PRN 30 days PRN 14 tabs 2RF sexual activity N52.2 - Drug-induced erectile dysfunction Discontinued naproxen Discontinued Reason: Patient Completed Course 500 mg PO BID 7 days PRN 14 tabs 0RF pain ibuprofen Discontinued Reason: Patient Completed Course 800 mg PO TID 30 days 90 tabs 0RF M54.5 - Low back pain tramadol Discontinued Reason: Patient Completed Course 50 mg PO Q6H 5 days PRN 20 tabs 0RF pain M54.5 - Low back pain Patient Instructions: The patient had an opportunity to ask questions regarding the treatment plan. All questions were answered. Physical exam, labs, and imaging were discussed and reviewed in detail. As well as risks, benefits, and discussion of treatment choices. No major barriers to understanding were identified. The patient expressed understanding and agreement with the above treatment plan. The patient was made aware they should contact our office by phone for worsening of their current condition, the appearance of new symptoms, or with any questions or concerns. Compliance is encouraged with any medications and follow up testing that is ordered. It is a privilege to be allowed the opportunity to participate in? your urological care.? Again, if you have any questions or concerns If you have any questions or concerns please do not hesitate to contact me. The office is [phone]. This note is constructed using voice recognition software. While every effort has been made to ensure accuracy wave solder offbearer errors may have been included. Yours sincerely, PRATIK Martin Coding Level of Care Code New Pt Level 4 (11913) Diagnoses Drug-induced erectile dysfunction N52.2 Erectile dysfunction type: drug-induced Bilateral hydrocele N43.3 Epididymal cyst N50.3
== END 2023-12-26 12:03 | disposition home or self-care (01) ==
PROVIDERS: PCP Physician Assistant; Visit Provider Nurse Practitioner Family
DX: N52.2 Drug-induced erectile dysfunction (principal); N43.3 Hydrocele, unspecified; N50.3 Cyst of epididymis; Z13.9 Encounter for screening, unspecified
CPT/HCPCS: 99204

== ENCOUNTER → 2023-12-26 11:06 | Outpatient (BNVA) | payer OTHER, SELFPAY | PROVIDERS: PCP Physician Assistant; Visit Provider Nurse Practitioner Family | DX: N52.2 Drug-induced erectile dysfunction (principal); T50.905A Adverse effect of unspecified drugs, medicaments and biological substances, initial encounter; N43.3 Hydrocele, unspecified; N50.3 Cyst of epididymis | CPT/HCPCS: 81003; 99202 ==

== ENCOUNTER → 2024-02-07 09:47 | Outpatient (BNVA) | payer OTHER, SELFPAY | PROVIDERS: PCP Physician Assistant; Visit Provider Physician Assistant Medical | DX: S39.012A Strain of muscle, fascia and tendon of lower back, initial encounter (principal); X50.3XXA Overexertion from repetitive movements, initial encounter | CPT/HCPCS: 99203 ==

== ENCOUNTER → 2024-02-13 10:12 | Outpatient (BNVA) | payer OTHER, SELFPAY | PROVIDERS: PCP Physician Assistant; Visit Provider Physician Assistant Medical | DX: S39.012D Strain of muscle, fascia and tendon of lower back, subsequent encounter (principal); X50.3XXD Overexertion from repetitive movements, subsequent encounter | CPT/HCPCS: 99213 ==

== ENCOUNTER → 2024-03-06 14:03 | Outpatient (BNVA) | payer OTHER, SELFPAY | PROVIDERS: PCP Physician Assistant; Visit Provider Physician Assistant Medical | DX: S39.012D Strain of muscle, fascia and tendon of lower back, subsequent encounter (principal); X50.3XXD Overexertion from repetitive movements, subsequent encounter | CPT/HCPCS: 99213 ==

== ENCOUNTER 2024-05-03 06:18 | Outpatient (REF) | payer SELFPAY ==
[2024-05-03 08:36] LABS: Alanine Aminotransferase 11 U/L (0-40); Albumin Level 4.3 g/dL (3.5-5.0); Alkaline Phosphatase 59 U/L (39-117); Anion Gap 11 (12-20); Aspartate Amino Transferase 15 U/L (5-37); Blood Urea Nitrogen 9 mg/dL (9-16); Calcium 9.5 mg/dL (8.4-10.2); Carbon Dioxide 28 mmol/L (22-29); Chloride 106 mmol/L (96-108); Estimated Glomerular Filt Rate > 60; Glucose Fasting 91 mg/dL (60-99); Sodium 141 mmol/L (135-145)
[2024-05-08 22:03] LABS: Testosterone, Free 127.7 pg/mL (35.0-155.0); Testosterone, Total 887 ng/dL (250-1100)
== END 2024-05-03 06:19 | disposition home or self-care (01) ==
LOC: HO.LAB 06:18
PROVIDERS: Nurse Practitioner Family; PCP Physician Assistant; Visit Provider Physician Assistant
DX: Z13.1 Encounter for screening for diabetes mellitus (principal); N52.1 Erectile dysfunction due to diseases classified elsewhere; E11.69 Type 2 diabetes mellitus with other specified complication
CPT/HCPCS: 36415; 80053; 84402; 84403

== ENCOUNTER 2024-08-01 16:03 | Outpatient (AMB) | payer OTHER, SELFPAY ==
--- NOTE | 2024-08-01 16:04 | MHC.OFFVIS ---
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 Accompanied by: Self / Same As Patient Allergies No Known Allergies [No Known Allergies*] Allergy (Verified 08/01/24 16:37) Medication List - Last Reconciled 08/01/24 by NIDHI Martin- albuterol sulfate 90 mcg/actuation (Ventolin HFA) 1 puff inhalation Q8H 30 days baclofen 20 mg PO BID 30 days citalopram (Celexa) 20 mg PO DAILY 30 days cyclobenzaprine 10 mg PO TID PRN nicotine 1 patch transdermal DAILY 14 days nicotine (polacrilex) 2 mg buccal Q2H PRN 30 days omeprazole 40 mg PO DAILY propranolol 10 mg PO ONCE PRN 15 days sildenafil (Viagra) 100 mg PO ONCE PRN 30 days HPI Comments Details: Bran is a pleasant 39-year-old Georgian-speaking male patient of Dr. Solis. He presents to the office today for follow-up of his erectile dysfunction and scrotal discomfort. Of note, patient was seen approximately 7 months ago at which time he was given p.r.n. Cialis and testosterone labs were drawn for further assessment evaluation. These results were reviewed with the patient today. Testosterone: 05/07 887 Free testosterone 05/07 127.7 In discussion with the patient today he reports noting some improvement in maintaining his erections with p.r.n. tadalafil. However, he is enquiring further treatment options. Previous workup for scrotal discomfort patient had been experiencing includes a scrotal ultrasound noting bilateral arterial and venous flow noted. Small bilateral hydroceles noted. Varicocele noted on the left. Epididymal head cyst on the left hand appendix testes versus complex epididymal cyst on the right. He continues to report intermittent infrequent episodes of scrotal discomfort. He reports noting left-sided varicocele. In assessment of the patient today small bilateral hydroceles palpated as well as bilateral epididymal cysts. No pain elicited on exam. No open areas, lesions, or masses palpated. We discussed further treatment options and risks and benefits of these treatment options. He wishes to continue with surveillance monitoring at this time. We discussed at length potential causes of erectile dysfunction. We discussed and stressed the importance of limiting recreational marijuana as well as nicotine dependence. He otherwise denies any bothersome urinary issues. He denies urinary urgency, urinary frequency, incontinence, nocturia, hematuria, dysuria, foul smelling urine, changes to urinary stream, flank pain, fever, and or chills. He is happy with his current voiding parameters. In office urinalysis results reviewed with the patient today. He otherwise offers no other issues or concerns at this time. [facility] Surgical History No pertinent past surgical history Family History Father Hypertension Mother Murder Maternal Grandmother CAD (coronary artery disease) Hypertension Sister In good health Son In good health Social History Housing: Apartment Alcohol intake: never Patient Tobacco Use Status: Current everyday Tobacco user Tobacco use type: Cigarette Cigarettes Per Day: 10 e-Cigarette/Vaping Use: Never Used Second Hand Smoke Exposure: No Substance Use Type: Marijuana service: No Current occupational status: employed Current occupational exposures/hazards: No Cognitive needs: No Hearing needs: No Vision needs: No Review of Systems Const All systems reviewed & are unremarkable except as noted in HPI and below Physical Exam Const General: cooperative, healthy appearing, comfortable, no acute distress, well developed, alert and awake Orientation/consciousness: patient oriented x3 Limitations: no limitations HEENT Head: Yes normal to inspection, Yes normocephalic and Yes atraumatic Ears: hearing grossly normal bilaterally Eyes General: appearance normal, both eyes and all related structures Neck Neck: Yes normal visual inspection and Yes trachea midline Chest Chest palpation & inspection: normal inspection of the chest Resp Effort & Inspection: normal respiratory effort and able to speak in complete sentences Cardio Rate: regular rate GI Inspection: Yes normal to inspection General: Yes no CVA tenderness Back/Spine/Pelvis Back: no CVA tenderness Skin General skin exam: no rashes or lesions noted Neuro General: patient oriented x3 Extrem General: Yes normal to inspection Psych Appearance: grossly normal and well kempt Mental Status: mental status grossly normal Speech and movement: Normal speech and movement present and Clear speech present Affect: normal affect Attitude: cooperative Thought process: Normal thought process present Thought content: Normal thought content present Insight: Fair insight present (Psych) Judgement: Fair judgement present (Psych) Results AMB Urinalysis, Automated UA Leukoctes 0 Elizabeth/uL Last Edit by Aniboome Jessy on 08/01/24 16:19 UA Nitrite Last Edit by Aniboome Brenakia on 08/01/24 16:19 UA Urobilinogen 0.2 mg/dL Last Edit by Juancarlosyce Bress on 08/01/24 16:19 UA Protein 15 mg/dL Last Edit by Aniboome Prysmnakia on 08/01/24 16:19 UA pH 6.0 Last Edit by Aniboome Brenakia on 08/01/24 16:19 UA Blood 0 Rosalio/uL Last Edit by Aniboome Bress on 08/01/24 16:19 UA Specific [place] 1.025 Last Edit by [email or web address] on 08/01/24 16:19 UA Ketone Last Edit by [email or web address] on 08/01/24 16:19 UA Bilirubin 0 mg/dL Last Edit by [email or web address] on 08/01/24 16:19 UA Glucose 0 mg/dL Last Edit by Aniboombeverly Prysmnakia on 08/01/24 16:19 Results Reviewed Results Reviewed: Laboratory Last Values Urine pH (Auto) 6.0 08/01/24 16:15 Specific [place] (Auto) 1.025 08/01/24 16:15 Urine Protein (Auto) 15 mg/dL 08/01/24 16:15 Glucose (UA)(Auto) 0 mg/dL 08/01/24 16:15 Urine Blood (Auto) 0 Rosalio/uL 08/01/24 16:15 Urine Bilirubin (Auto) 0 mg/dL 08/01/24 16:15 Urine Urobilinogen (Auto) 0.2 mg/dL 08/01/24 16:15 Leukocyte Esterase (Auto) 0 Elizabeth/uL 08/01/24 16:15 Assessment & Plan Assessment & Plan (1) Erectile dysfunction: Code(s): N52.9 - Male erectile dysfunction, unspecified Category: Medical Qualifiers: Erectile dysfunction type: drug-induced Qualified Code(s): N52.2 - Drug-induced erectile dysfunction (2) Bilateral hydrocele: Code(s): N43.3 - Hydrocele, unspecified Category: Medical (3) Epididymal cyst: Code(s): N50.3 - Cyst of epididymis Category: Medical (4) Varicocele: Code(s): I86.1 - Scrotal varices Category: Medical Plan In office urinalysis results reviewed with the patient today; as noted above. Recent labs reviewed with the patient today; as noted above. Stop p.r.n. Cialis. Start sildenafil as discussed and prescribed. Discussed at length importance of limiting/quitting recreational marijuana as well as nicotine dependence for overall health and well-being as well as to assist with obtaining and maintaining his erections. Discussed at length potential causes of ED, hydroceles, and epididymal head cysts. He otherwise denies any bothersome urinary issues. He reports be happy with current voiding parameters. Will continue with surveillance monitoring of bilateral hydroceles, epididymal head cysts, and varicocele Follow-up in 3 months; or sooner with any issues, concerns, and or questions. Orders: Orders AMB Urinalysis Automated Today Z13.9 - Encounter for screening, unspecified Medications: New sildenafil (Viagra) administer 1 hour prior to activity [facility] [address] [id number] 100 mg PO ONCE PRN 10 tabs 3RF sexual activity 30 days Discontinued tadalafil (Cialis) administer approximately 30min before sexual activity; do not use more than 1 dose per 24hrs [id number] [facility] [id number] Member [id number] Discontinued Reason: Doctor's Order 20 mg (2 x 10 mg) PO .PRN PRN 14 tabs 2RF sexual activity 30 days N52.2 - Drug-induced erectile dysfunction Patient Instructions: The patient had an opportunity to ask questions regarding the treatment plan. All questions were answered. Physical exam, labs, and imaging were discussed and reviewed in detail. As well as risks, benefits, and discussion of treatment choices. No major barriers to understanding were identified. The patient expressed understanding and agreement with the above treatment plan. The patient was made aware they should contact our office by phone for worsening of their current condition, the appearance of new symptoms, or with any questions or concerns. Compliance is encouraged with any medications and follow up testing that is ordered. It is a privilege to be allowed the opportunity to participate in? your urological care.? Again, if you have any questions or concerns If you have any questions or concerns please do not hesitate to contact me. The office is [phone]. This note is constructed using voice recognition software. While every effort has been made to ensure accuracy elementary supervisor errors may have been included. Yours sincerely, PRATIK Martin Coding Level of Care Code Est Pt Level 4 (24807) Diagnoses Drug-induced erectile dysfunction N52.2 Erectile dysfunction type: drug-induced Bilateral hydrocele N43.3 Epididymal cyst N50.3 Varicocele I86.1
== END 2024-08-01 16:30 | disposition home or self-care (01) ==
PROVIDERS: PCP Physician Assistant; Visit Provider Nurse Practitioner Family
DX: N52.2 Drug-induced erectile dysfunction (principal); N43.3 Hydrocele, unspecified; N50.3 Cyst of epididymis; I86.1 Scrotal varices; Z13.9 Encounter for screening, unspecified
CPT/HCPCS: 99214

== ENCOUNTER → 2024-08-01 16:03 | Outpatient (BNVA) | payer OTHER, SELFPAY | PROVIDERS: PCP Physician Assistant; Visit Provider Nurse Practitioner Family | DX: N52.2 Drug-induced erectile dysfunction (principal); N50.82 Scrotal pain; N43.3 Hydrocele, unspecified; N50.3 Cyst of epididymis; I86.1 Scrotal varices | CPT/HCPCS: 81003; 99212 ==

== ENCOUNTER → 2024-09-11 08:47 | Outpatient (BNVA) | payer OTHER, SELFPAY | PROVIDERS: PCP Physician Assistant; Visit Provider Physician Assistant | DX: S39.012D Strain of muscle, fascia and tendon of lower back, subsequent encounter (principal); R10.9 Unspecified abdominal pain; F17.210 Nicotine dependence, cigarettes, uncomplicated; X58.XXXD Exposure to other specified factors, subsequent encounter | CPT/HCPCS: 96127; 99212 ==

== ENCOUNTER 2024-10-11 14:49 | Outpatient (REF) | payer OTHER, SELFPAY ==
--- NOTE | ~2024-10-11 | US_ITS ---
EXAMINATION: US KIDNEY RIGHT HISTORY: R10.9 - Unspecified abdominal pain TECHNIQUE: Real-time grayscale ultrasound imaging of the right kidney was performed and images were reviewed. COMPARISON: There are no prior studies for comparison. FINDINGS: Right kidney: The right kidney measures 10.6 x 3.9 x 6.7 cm. Renal parenchymal echotexture and thickness are normal. There are no masses. There is no hydronephrosis or renal calculi. US/US renal RT IMPRESSION: Unremarkable ultrasound of the right kidney. Electronically signed by: Mundo Cole MD 10/14/2024 07:35 AM ARNALDO
--- OUTSIDE RECORDS SUMMARY | 2024-10-11 17:01 | XMS_ITS | Encounter Summary ---
Author Organization [facility] Address [address] [place] [address] Care Team Providers Care Dimethylaniline Sulfator Operator Name Role Phone Unavailable Primary Care Provider Unavailabl e Encounter Details Date Type Department Care Team (Late st Contact Info) Description 08/03/2023 Abstract [facility] ADULT DENTAL [address] [place] [address] Calista Tejeda [address] [place] [address] Social History Tobacco Use Types Packs/Day Years Used Date Smoking Tobacco: Every Day Cigarettes Sex and Gender Information Value Date Recorded Sex Assigned at Male 06/13/2022 10:32 AM EDT Legal Sex Male 10:32 AM EDT Gender Identity Male 06/13/2022 10:32 AM EDT Sexual Orientation Choose not to disclose 2021 10:32 AM EDT documented as of this encounter Plan of Treatment Upcoming Encounters Date Type Department Care Team (Late st Contact Info) Description 10/18/2024 1:00 PM EST Office Visit [facility] ADULT DENTAL [address] [place] [address] Calista Tejeda [address] [place] [address] documented as of this encounter Visit Diagnoses Not on filedocumented in this encounter
--- OUTSIDE RECORDS SUMMARY | 2024-10-11 17:01 | XMS_ITS | Encounter Summary ---
Author Organization [employer] Address [address] [place] [address] Care Team Providers Care Certified Forklift Operator Name Role Phone Unavailable Primary Care Provider Unavailabl e Reason for Visit * Reason Onset Date Comments referrral 12/28/2022 Encounter Details Date Type Department Care Team (Late st Contact Info) Description 12/28/2022 Telephone C ADULT DENTAL [address] [place] [address] Kathe Chairez DDS [address] [place], [place] [phone] referrral Social History Tobacco Use Types Packs/Day Years Used Date Smoking Tobacco: Every Day Cigarettes Sex and Gender Information Value Date Recorded Sex Assigned at Male 06/13/2022 10:32 AM EDT Legal Sex Male 10:32 AM EDT Gender Identity Male 06/13/2022 10:32 AM EDT Sexual Orientation Choose not to disclose 2021 10:32 AM EDT documented as of this encounter Miscellaneous Notes * Telephone Encounter - Kathe Chairez DDS - 12/30/2022 11:25 AM EDT Pt could visit [facility], but he has to call to see if they could help him. To please contact for other board design engineer specialists in the area. Dr. Dawson, however is coming back soon but we don't know exactly when. * Telephone Encounter - Josefa Ruffin - 12/28/2022 3:57 PM EDT Patient called in stating that he contacted [facility] for an appt and was told that they would not be able to take him on as a patient as they were full and there is a waiting list. He wantedto know what other office he can go tto. I did inform patient that he should be calling the insurance and getting advise from them as to where he could go based on who accept for RCT treatment. Heasked me to ask you anyway and see if you had any suggestions before he contacts . He is also questioning why you would not be able todo the RCT. I did inform patient that upon seeing patient if provider feels that patient needs to see specialist they may be referred elsewhere documented in this encounter Plan of Treatment Upcoming Encounters Date Type Department Care Team (Late st Contact Info) Description 10/18/2024 1:00 PM EST Office Visit [facility] ADULT DENTAL [address] [place] [address] Calista Tejeda [address] [place] [address] documented as of this encounter Visit Diagnoses Not on filedocumented in this encounter
--- OUTSIDE RECORDS SUMMARY | 2024-10-11 17:01 | XMS_ITS | Encounter Summary ---
Author Organization [employer] Address [address] 7[address] [place] [address] Care Team Providers Care Naval Architect Name Role Phone Unavailable Primary Care Provider Unavailabl e Reason for Visit * Reason Onset Date Comments calrification of referral 04/21/2023 Appointment 04/21/2023 Encounter Details Date Type Department Care Team (Late st Contact Info) Description 04/21/2023 Telephone [facility] ADULT DENTAL [address] [place] [address] Kathe Chairez DDS [address] [place], [place] [phone] calrification of referral; Appointment Social History Tobacco Use Types Packs/Day Years Used Date Smoking Tobacco: Every Day Cigarettes Sex and Gender Information Value Date Recorded Sex Assigned at Male 06/13/2022 10:32 AM EDT Legal Sex Male 10:32 AM EDT Gender Identity Male 06/13/2022 10:32 AM EDT Sexual Orientation Choose not to disclose 2021 10:32 AM EDT documented as of this encounter Miscellaneous Notes * Telephone Encounter - Josefa Ruffin - 04/25/2023 11:[address] Pimentel patient needs to be seen to clarify what happened at referral visit. No room on PAR side to schedule * Telephone Encounter - Kathe Chairez DDS - 04/24/2023 8:08 AM EDT I don't understand what happened in that visit, he might need an appt to be seen. Dave, Dr. Pimentel * Telephone Encounter - Josefa Ruffin - 04/21/2023 2:10 PM EDT Patient called in wanting to speak with provider. He was given a referral back in November for [facility]. He states that he is not sure what treatmetn he is getting with them because they want to take out a tooth and add it to a partial and a root canal at the same time but states taht he wants to keep his tooth. He has been getting treatment with them for a couple of weeks now and is unsurewhat is happening I asked him if he went to [facility] as the referral stated and he states that he does not know what office he is going to only that it is in [place]. He wants to speak to provider because he does not know if he is getting the treatment he is supposed to be getting DR documented in this encounter Plan of Treatment Upcoming Encounters Date Type Department Care Team (Late st Contact Info) Description 10/18/2024 1:00 PM EST Office Visit [facility] ADULT DENTAL [address] [place] [address] Calista Tejeda [address] [place] [address] documented as of this encounter Visit Diagnoses Not on filedocumented in this encounter
--- OUTSIDE RECORDS SUMMARY | 2024-10-11 17:01 | XMS_ITS | Encounter Summary ---
Author Organization [facility] Address [address] 7[address] [place] [address] Care Team Providers Care Vocational Rehab Consultant Name Role Phone Unavailable Primary Care Provider Unavailabl e Encounter Details Date Type Department Care Team (Late Contact Info) Description 07/13/2022 Abstract [facility] ADULT DENTAL [address] [place] [address] Dental, Provider, DDS Social History Tobacco Use Types Packs/Day Years Used Date Smoking Tobacco: Never Assessed Sex and Gender Information Value Date Recorded Sex Assigned at Male 06/13/2022 10:32 AM EDT Legal Sex Male 10:32 AM EDT Gender Identity Male 06/13/2022 10:32 AM EDT Sexual Orientation Choose not to disclose 2021 10:32 AM EDT COVID-19 Exposure Response Date Recorded In the last 10 days, have yo u been in contact with someone who was confirmed or suspected to have Coronavirus/COVID-19? No / Unsure 07/15/2022 1:06 PM EST documented as of this encounter Plan of Treatment Upcoming Encounters Date Type Department Care Team (Late Contact Info) Description 10/18/2024 1:00 PM EST Office Visit [facility] ADULT DENTAL [address] [place] [address] Quoc Tejedaaris [address] [place] [address] documented as of this encounter Procedures Procedure Name Priority Date/Time Associated Diagnosis Comments 12 MOB(V) COMPOSITE FILLING Routine 07/13/2022 12:00 AM EST 9 F COMPOSITE FILLING Routine 07/13/2022 12:00 AM EST 7 DL COMPOSITE FILLING Routine 07/13/2022 12:00 AM EST 4 DO COMPOSITE FILLING Routine 07/13/2022 12:00 AM EST 12 ROOT CANAL Routine 07/13/2022 12:00 AM EST 18,19,30,31 PARTIAL DENTURE - RESIN Routine 04/12/2018 12:00 AM EDT 5,6,15 PARTIAL DENTURE - RESIN Routine 04/12/2018 12:00 AM EDT documented in this encounter Visit Diagnoses Not on filedocumented in this encounter
--- OUTSIDE RECORDS SUMMARY | 2024-10-11 17:01 | XMS_ITS | Clinical Summary ---
Author Organization [facility] [facility] it Address [address] [place] [address] Care Team Providers Care Guitar Maker Hand Name Role Phone Unavailable Primary Care Provider Unavailabl e Social History Tobacco Use Types Packs/Day Years Used Date Smoking Tobacco: Never Assessed Sex and Gender Information Value Date Recorded Sex Assigned at Not on file Legal Sex Male 4:50 AM EST Gender Identity Not on file Sexual Orientation Not on file Plan of Treatment Health Maintenance Due Date Last Done Comments DTaP,Tdap,and Td Vaccines (1 - Tdap) 2006 Hepatitis B Vaccines (1 of 3 - 19+ 3-dose series) 2006 COVID-19 Vaccine (2023-2 5 season) 2024 Influenza Vaccine (#1) 2024 HIB Vaccines Aged Out No longer eligi ble based on patient's age to complete this topic HPV Vaccines Aged Out No longer eligi ble based on patient's age to complete this topic Hepatitis A Vaccines Aged Out No long er eligible based on patient's age to complete this topic IPV Vaccines Aged Out No longer eligi ble based on patient's age to complete this topic MMR Vaccines Aged Out No longer eligi ble based on patient's age to complete this topic Meningococcal ACWY Vaccine Aged Out N o longer eligible based on patient's age to complete this topic Meningococcal B Vacine Aged Out No lo nger eligible based on patient's age to complete this topic Pneumococcal Vaccine: Pediat rics (0 to 5 Years) and At-Risk Patients (6 to 64 Years) Aged Out No longer eligible b ased on patient's age to complete this topic RSV Immunization Patients Un dav 20 months Aged Out No longer eligible b ased on patient's age to complete this topic Varicella Vaccines Aged Out No longer eligible based on patient's age to complete this topic
--- OUTSIDE RECORDS SUMMARY | 2024-10-11 17:01 | XMS_ITS | Clinical Summary ---
Author Organization [employer] [facility] Address [address] [place] [address] Care Team Providers Care Global Sales Director Name Role Phone Unavailable Primary Care Provider Unavailabl e Allergies No known active allergies Medications acetaminophen (Tylenol 8 Hour) 650 MG ER tablet Take 2 tablets by mouth every 8 (eight) hours. 2 Active chlorhexidine (Periogard) 0.12 % solution Place 15 mL into mouth between cheek and gum every 12 (twelve) hours. 2 Active ibuprofen 800 MG tablet Take 1 tablet by mouth every 8 (eight) hours. 2 Active Ventolin HFA 108 (90 Base) MCG/ACT inhaler INHALE 1 PUFF EVERY 8 HOURS FOR 30 DAYS 2 Active baclofen (Lioresal) 20 MG tablet 3 Active citalopram (CeleXA) 20 MG tablet 3 Active nicotine polacrilex (Nicorette) 2 MG gum CHEW AND USE 1 PIECE OF GUM BUCCALLY EVERY 2 HOURS NEEDED FOR NICOTINE CRAVINGS FOR 30 DAYS 2 Active propranolol (Inderal) 10 MG tablet TAKE 1 TABLET ORALLY ONCE NEEDED FOR PALPATATIONS FOR 15 DAYS 2 Active Active Problems Problem Noted Date Diagnosed Date Dental calculus 07/17/2023 Periodontal disease 07/17/2023 Missing teeth, acquired 07/17/2023 Localized gingival recession, moderate 3 Dental caries 06/05/2023 Immunizations Name Administration Dates Next Due Influenza injectable quadrivalent preservative f ree 06/17/2021,07/02/2019 Td (adult), 5 Lf tetanus tox oid, preservative free, adsorbed 06/18/2016 Tdap 02/01/2021 Social History Tobacco Use Types Packs/Day Years Used Date Smoking Tobacco: Every Day Cigarettes Tobacco Cessation:Ready to Q uit: Not Asked; Counseling Given: Not Answered Sex and Gender Information Value Date Recorded Sex Assigned at Male 06/13/2022 10:32 AM EDT Legal Sex Male 10:32 AM EDT Gender Identity Male 06/13/2022 10:32 AM EDT Sexual Orientation Choose not to disclose 2021 10:32 AM EDT Last Filed Vital Signs Vital Sign Reading Time Taken Comments Blood Pressure 120/80 08/31/2023 3:09 PM EST Pulse 76 08/16/2023 2:14 PM EST Temperature - - Respiratory Rate - - Oxygen Saturation - - Inhaled Oxygen Concentration - - Weight - - Height - - Body Mass Index - - Plan of Treatment Upcoming Encounters Date Type Department Care Team (Late st Contact Info) Description 10/18/2024 1:00 PM EST Office Visit [facility] ADULT DENTAL [address] [place] [address] Nikhil, Calista [address] [place] [address] Health Maintenance Due Date Last Done Comments Depression Screening 1987 HIV Screening 1987 Lipid Panel 1987 SDOH Screening 1987 Alcohol/Substance Use Screening 1999 Family Planning (PISQ) 2002 Hepatitis C Screening 2005 Hepatitis A Vaccines (1 of 2 - Risk 2-dose series) 2006 Hepatitis B Vaccines (1 of 3 - 19+ 3-dose series) 2006 Dental Oral Exam 12/21/2023 06/21/2023 Dental Prophylaxis 01/17/2024 07/17/2023 COVID-19 Vaccine ( - 2023-2 5 season) 2024 Influenza Vaccine (#1) 2024 , 07/02/2019 Dental X-Ray: Bitewings 06/22/2024 06/21/20, 09/05/2022 Tobacco Screening 11/06/2024 11/07/2023 Dental X-Ray: Full Mouth 06/22/2026 06/21/2023 DTaP/Tdap/Td Vaccines (2 - T d or Tdap) 02/01/2031 02/01/2021, 06/18/2016 Zoster Vaccines (1 of 2) 2037 RSV Patients and Patients Aged 60 years or older (1 - 1-dose 75+ series) 2062 Pneumococcal Vaccine: Pediatrics (0 to 5 Years) and At-Risk Patients (6 to 49) Years) Completed 11/02/2023 HIB Vaccines Aged Out No longer eligi ble based on patient's age to complete this topic HPV Vaccines Aged Out No longer eligi ble based on patient's age to complete this topic IPV Vaccines Aged Out No longer eligi ble based on patient's age to complete this topic Meningococcal Vaccine Aged Out No taj zeke eligible based on patient's age to complete this topic RSV under 20 months Aged Out No longe r eligible based on patient's age to complete this topic Rotavirus Vaccines Aged Out No longer eligible based on patient's age to complete this topic Procedures Procedure Name Priority Date/Time Associated Diagnosis Comments PROPHYLAXIS - ADULT Routine 07/17/2023 3 :00 PM EST Dental calculus Periodontal disease INTRAORAL - COMPLETE SERIES OF RADIOGRAPHIC IMAGES Routine 06/21/2023 1:30 PM EST PERIODIC ORAL EVALUATION - ESTABLISHED PATIENT Routine 06/21/2023 1:30 PM EST from Last 3 Months or Most Recently Relevant to Health Maintenance Insurance DENTAL - HSN PARTIAL (MEDICAID) DENTAL - HSN PARTIAL (MEDICAID)
--- OUTSIDE RECORDS SUMMARY | 2024-10-11 17:01 | XMS_ITS | Encounter Summary ---
Author Organization [facility] Address [address] [place] [address] Care Team Providers Care Senior Construction Estimator Name Role Phone Unavailable Primary Care Provider Unavailabl e Encounter Details Date Type Department Care Team (Late st Contact Info) Description 09/15/2022 Orders Only [facility] ADULT DENTAL [address] [place] [address] Kathe Chairez DDS [address] [place] [address] Periapical abscess without sinus (Primary Dx) Social History Tobacco Use Types Packs/Day Years [...] suspected to have Coronavirus/COVID-19? No / Unsure 09/05/2022 12:55 PM EST documented as of this encounter Plan of Treatment Upcoming Encounters Date Type Department Care Team (Late st Contact Info) Description 10/18/2024 1:00 PM EST Office Visit [facility] ADULT DENTAL [address] [place] [address] Nikhil, Calista [address] [place] [address] documented as of this encounter Visit Diagnoses Diagnosis Periapical abscess without sinus- Primary documented in this encounter
--- OUTSIDE RECORDS SUMMARY | 2024-10-11 17:01 | XMS_ITS | Encounter Summary ---
Author Organization [employer] [facility] Address [address] [place] [address] Care Team Providers Care Career Development Engineer Name Role Phone Unavailable Primary Care Provider Unavailabl e Reason for Visit * Reason Onset Date Comments referral/xrays 03/17/2023 Encounter Details Date Type Department Care Team (Late st Contact Info) Description 03/17/2023 Telephone [facility] ADULT DENTAL [address] [place] [address] Kathe Chairez DDS [address] [place], [place] [phone] referral/xrays Social History Tobacco Use Types Packs/Day Years [...] Miscellaneous Notes * Telephone Encounter - Josefa Rfufin - 03/17/2023 9:52 AM EDT [facility] called stating that patient has an appt today and they need the referral and xrays sent over for visit. I did fax the referral from our department but they requested xrays be emailed [employer] [email or web address] documented in this encounter Plan of Treatment Upcoming Encounters Date Type Department Care Team (Late st Contact Info) Description 10/18/2024 1:00 PM EST Office Visit [facility] ADULT DENTAL [address] [place] [address] Calista Tejeda [address] [place] [address] documented as of this encounter Visit Diagnoses Not on filedocumented in this encounter
--- OUTSIDE RECORDS SUMMARY | 2024-10-11 17:01 | XMS_ITS | Encounter Summary ---
Author Organization [facility] [facility] Address [address] [place] [id number] Care Team Providers Care Construction Economist Name Role Phone Unavailable Primary Care Provider Unavailabl e Encounter Details Date Type Department Care Team (Latest Contact Info) Description 06/05/2019 Abstract [facility] CON[facility] Dental, Provider, DDS Social History Tobacco Use [...] Description 10/18/2024 1:00 PM EST Office Visit [facility] ADULT DENTAL [address] [place] [address] Calista Tejeda [address] [place] [address] documented as of this encounter Visit Diagnoses Not on filedocumented in this encounter
== END 2024-10-11 14:50 | disposition home or self-care (01) ==
LOC: HO.US 14:49
PROVIDERS: PCP Physician Assistant; Visit Provider Physician Assistant
DX: R10.9 Unspecified abdominal pain (principal)
CPT/HCPCS: 76775

== ENCOUNTER → 2024-10-11 14:51 | Outpatient (BNV) | payer OTHER, SELFPAY | PROVIDERS: PCP Physician Assistant; Visit Provider Radiology Diagnostic Radiology | DX: R10.9 Unspecified abdominal pain (principal) | CPT/HCPCS: 76775 ==

== ENCOUNTER 2024-10-23 11:03 | Outpatient (AMB) | payer OTHER, SELFPAY ==
--- NOTE | 2024-10-23 11:18 | AM.OFFWIN_ITS ---
Intake Vital Signs 10/23/24 11:20 Weight 167 lb BP 110/70 Blood Pressure Location Rt brachial Position Sitting Pulse 66 Pulse Source Pulse Oximeter Temp 98.7 F Temp Source Oral Pulse Oximetry (%) 98 Oxygen Delivery Method Room Air Intake Visit Reasons: EP Vomiting, Diarrhea, stomach cramps, fever Intake Note: Patient here for nausea, diarrhea, stomach pain, fever and body aches that started today. Patient Tobacco Use Status: Current everyday Tobacco user Allergies No Known Allergies [No Known Allergies*] Allergy (Verified 10/23/24 11:19) Do you need a note to return to daycare/school/sports/work: Yes HPI HPI Comments History of Present Illness Details Maldivian video interpretor used for this visit History - The patient is a 39-year-old male pres enting with fever, nausea, diarrhea, and body aches x 1d - He reported a fever of up to 103?F, te mporarily alleviated by Tylenol. - The patient is experiencing diarrhea w ithout any blood or black coloration. - Physical discomfort is noted across th e body, with emphasis on the back. - Absence of cough, ear pain, or sinus-a ssociated symptoms points to a viral christina ology. Physical Exam General: Cooperative, healthy appearing, comfortable and no acute distress Orientation/consciousness: Patient oriented x3 Limitations: No limitations Head: Normal to inspection Ears: Hearing grossly normal bilaterally, external ears normal Nose: Normal external nose present, Normal nares present and No nasal discharge present Face and sinus: Normal facial exam and Yes sinuses nontender Mouth: Normal oral and palatal mucosa present and moist mucous membranes Throat: Yes tonsils normal, Yes uvula midline. Posterior oropharynx erythema Eyes: Appearance normal, both eyes and all related structures Neck: Normal visual inspection Respiratory: Clear to auscultation bilaterally. Normal respiratory effort, able to speak in complete sentences, no respiratory distress, not tachypneic, no tripod positioning and no use of accessory muscles Cardiovascular: Regular rate and rhythm. Normal S1 and S2 GI: soft, hyperactive bs, negative murphys, generalized ttp Skin: No rashes or lesions noted Neuro: Patient oriented x3 Extremities: Normal to inspection and Yes no clubbing, cyanosis or edema PFSH Surgical History No pertinent past surgical history Family History Father Hypertension Mother Murder Maternal Grandmother CAD (coronary artery disease) Hypertension Sister In good health Son In good health Social History Housing: Apartment Alcohol intake: never Patient Tobacco Use Status: Current everyday Tobacco user Tobacco use type: Cigarette Cigarette Packs Per Day: 0.5 Cigarettes Per Day: 6 e-Cigarette/Vaping Use: Never Used Second Hand Smoke Exposure: Yes Substance Use Type: Marijuana service: No Current occupational status: employed Current occupational exposures/hazards: No Cognitive needs: No Hearing needs: No Vision needs: No Review of Systems Const All systems reviewed & are unremarkable except as noted in HPI and below Physical Exam Vital Signs: Last Vital Signs Temp 98.7 F 10/23/24 11:20 Pulse 66 10/23/24 11:20 BP 110/70 10/23/24 11:20 Pulse Ox 98 10/23/24 11:20 Oxygen Delivery Method Room Air 10/23/24 11:20 Assessment & Plan Assessment & Plan (1) Acute viral syndrome: Code(s): B34.9 - Viral infection, unspecified Plan: VSS, pt well appearing, PE reassuring. The evaluation suggests a viral infection influenza vs gastritis with tests for influenza, COVID-19, and RSV conducted. S ymptomatic treatment is advised, including hydration focusing on water and low- sugar electrolyte solutions while avoiding irritating foods. The patient should monitor for any changes in stool appearance and contact his PCP if bloody or black stools occur. Results from the diagnostic tests will be communicated promptly, and a work excuse until Monday has been prepared per the patient's request. Patient was informed and verbally consented to the use of an ambient scribe for clinic note documentation during this visit Orders: Orders SARS-CoV2/FLU/RSV Today R09.89 - Other specified symptoms and signs involving the circulatory and respiratory systems Coding Level of Care Code Est Pt Level 3 (64220) Diagnoses Acute viral syndrome B34.9
[2024-10-23 11:20] VITALS: BP 110/70; PULSE 66; TEMP 37.1; O2SAT 98
--- OUTSIDE RECORDS SUMMARY | 2024-10-23 13:00 | XMS_ITS | Encounter Summary ---
Author Organization [facility] Address [address] [place] [address] Care Team Providers Care Associate Field Service Engineer Name Role Phone Unavailable Primary Care Provider Unavailabl e Reason for Visit * Reason Onset Date Comments referral/xrays 03/17/2023 Encounter Details Date Type Department Care Team (Late st Contact Info) Description 03/17/2023 Telephone [facility] ADULT DENTAL [address] [place] [address] Kathe Chairez DDS [address] [place], [place] [phone] referral/xrays Social History Tobacco Use Types Packs/Day [...] * Telephone Encounter - Josefa Ruffin - 03/17/2023 9:52 AM EDT [facility] called stating that patient has an appt today and they need the referral and xrays sent over for visit. I did fax the referral from our department but they requested xrays be emailed Gamblit [email or web address]. documented in this encounter Plan of Treatment Upcoming Encounters Date Type Department Care Team (Late st Contact Info) Description 02/27/2025 3:00 PM EDT Office Visit [facility] ADULT DENTAL [address] [place] [address] Calista Tejeda [address] [place] [phone] documented as of this encounter Visit Diagnoses Not on filedocumented in this encounter
--- OUTSIDE RECORDS SUMMARY | 2024-10-23 13:00 | XMS_ITS | Clinical Summary ---
Author Organization [facility] [facility] Address [address] [facility] 7t [place] [address] Care Team Providers Care Property Custodian Name Role Phone Unavailable Primary Care Provider [...] Description 02/27/2025 3:00 PM EDT Office Visit [facility] ADULT DENTAL [address] [place] [address] Nikhil, Calista [address] [place] [address] Health Maintenance Due Date Last Done Comments [...]
--- OUTSIDE RECORDS SUMMARY | 2024-10-23 13:00 | XMS_ITS | Encounter Summary ---
Author Organization [employer] Address [address] [facility] [address] [place] [address] Care Team Providers Care Voltage Regulator Assembler Name Role Phone Unavailable Primary Care Provider Unavailabl e Reason for Visit * Reason Onset Date Comments referrral 12/28/2022 Encounter Details Date Type Department Care Team (Late st Contact Info) Description 12/28/2022 Telephone [facility] ADULT DENTAL [address] [place] [address] Kathe Chairez DDS [address] [place], [place] [phone] referrral Social History Tobacco Use Types Packs/Day [...] 12/30/2022 11:25 AM EDT Pt could visit [facility], but he has to call to see if they could help him. To please contact for other coach cleaner specialists in the area. Dr. Dawson, however is coming back soon but we don't know exactly when. * Telephone Encounter - Josefa Ruffin - 12/28/2022 3:57 PM EDT Patient called in stating that he contacted [facility] for an appt and was told that [...] Description 02/27/2025 3:00 PM EDT Office Visit [facility] ADULT DENTAL [address] [place] [address] Calista Tejeda [address] [place] [address] documented as of this encounter Visit Diagnoses Not on filedocumented in this encounter
--- OUTSIDE RECORDS SUMMARY | 2024-10-23 13:00 | XMS_ITS | Clinical Summary ---
Author Organization [facility] [facility] it Address [address] [place] [address] Care Team Providers Care Filling Station Equipment Mechanic Name Role Phone Unavailable Primary Care Provider [...]
--- OUTSIDE RECORDS SUMMARY | 2024-10-23 13:00 | XMS_ITS | Encounter Summary ---
Author Organization [facility] Address [address] [facility] [address] [place] [address] Care Team Providers Care Metal Numerical Tool Programmer Name Role Phone Unavailable Primary Care Provider Unavailabl e Encounter Details Date Type Department Care Team (Late st Contact Info) Description 08/03/[address] [facility] ADULT DENTAL [address] [place] [address] Calista Tejeda [address] [place] [address] Social History Tobacco Use Types Packs/Day Years [...] Description 02/27/2025 3:00 PM EDT Office Visit [facility] ADULT DENTAL [address] [place] [address] Calista Tejeda [address] [place] [address] documented as of this encounter Visit Diagnoses Not on filedocumented in this encounter
--- OUTSIDE RECORDS SUMMARY | 2024-10-23 13:00 | XMS_ITS | Encounter Summary ---
Author Organization [employer] [facility] Address [address] Floor [place] [id number] Care Team Providers Care Middle School Special Education Teacher Name Role Phone Unavailable Primary Care Provider Unavailabl e Encounter Details Date Type Department Care Team (Latest Contact Info) Description 06/05/[address] [facility] CONVERSIONS Dental, Provider, DDS Social History [...] 02/27/2025 3:00 PM EDT Office Visit [facility] ADULT DENTAL [address] [place] [address] Calista Tejeda [address] [place] [address] documented as of this encounter Visit Diagnoses Not on filedocumented in this encounter
--- OUTSIDE RECORDS SUMMARY | 2024-10-23 13:00 | XMS_ITS | Encounter Summary ---
Author Organization [employer] Address [address] [facility] 7t [place] [address] Care Team Providers Care Enterprise Services Manager Name Role Phone Unavailable Primary Care Provider Unavailabl e Reason for Visit * Reason Onset Date Comments calrification of referral 04/21/2023 Appointment 04/21/2023 Encounter Details Date Type Department Care Team (Late st Contact Info) Description 04/21/2023 Telephone [facility] ADULT DENTAL [address] [place] [address] Kathe Chairez DDS [address] [place], [place] [phone] calrification of referral; Appointment Social History Tobacco [...] given a referral back in November for [facility]. He states that he is [...] I asked him if he went to [facility] as the referral stated and he states that he does not know what office he is going to only that it is in [place]. He wants to speak to provider because he does not know if he is getting the treatment he is supposed to be getting DR documented in this encounter Plan of Treatment Upcoming Encounters Date Type Department Care Team (Late st Contact Info) Description 02/27/2025 3:00 PM EDT Office Visit [facility] ADULT DENTAL [address] [place] [address] Calista Tejeda [address] [place] [address] documented as of this encounter Visit Diagnoses Not on filedocumented in this encounter
--- OUTSIDE RECORDS SUMMARY | 2024-10-23 13:00 | XMS_ITS | Encounter Summary ---
Author Organization [facility] Address [address] [facility] 7t [place] [address] Care Team Providers Care Nib Adjuster Name Role Phone Unavailable Primary Care Provider Unavailabl e Encounter Details Date Type Department Care Team (Late st Contact Info) Description 09/15/2022 Orders Only [facility] ADULT DENTAL [address] [place] [address] Kathe Chairez, RADHAS [address] [place] [address] Periapical abscess without sinus (Primary Dx) Social [...] Description 02/27/2025 3:00 PM EDT Office Visit [facility] ADULT DENTAL [address] [place] [address] Quoc Tejedaaris [address] [place] [address] documented as of this encounter Visit Diagnoses Diagnosis Periapical abscess without sinus- Primary documented in this encounter
--- OUTSIDE RECORDS SUMMARY | 2024-10-23 13:00 | XMS_ITS | Encounter Summary ---
Author Organization [employer] [facility] Address [address] [facility] 7t [place] [address] Care Team Providers Care Waste Removalist Name Role Phone Unavailable Primary Care Provider Unavailabl e Encounter Details Date Type Department Care Team (Late Contact Info) Description 07/13/2022 Abstract [facility] ADULT DENTAL [address] [place] [address] Dental, Provider, DDS Social History Tobacco Use [...] Department Care Team (Late Contact Info) Description 02/27/2025 3:00 PM EDT Office Visit [facility] ADULT DENTAL [address] [place] [address] Nikhil, Calista [address] [place] [address] documented as of this encounter Procedures Procedure [...]
== END 2024-10-23 12:04 | disposition home or self-care (01) ==
PROVIDERS: PCP Physician Assistant; Visit Provider Physician Assistant
DX: B34.9 Viral infection, unspecified (principal)

== ENCOUNTER 2024-10-23 11:03 | Outpatient (REF) | payer OTHER, SELFPAY ==
--- OUTSIDE RECORDS SUMMARY | 2024-10-23 13:54 | XMS_ITS | Encounter Summary ---
Author Organization [employer] Address [address] [facility] 7t [place] [address] Care Team Providers Care Inspector Semiconductor Wafer Name Role Phone Unavailable Primary Care Provider Unavailabl e Reason for Visit * Reason Onset Date Comments calrification of referral 04/21/2023 Appointment 04/21/2023 Encounter Details Date Type Department Care Team (Late st Contact Info) Description 04/21/2023 Telephone [facility] ADULT DENTAL [address] [place] [address] Kathe Chairez DDS [address] [place], [place] [phone] calrification of referral; Appointment Social History Tobacco [...] I asked him if he went to [facility] as the referral stated and he states that he does not know what office he is going to only that it is in [place]. He wants to speak to provider because he does not know if he is getting the treatment he is supposed to be getting DR documented in this encounter Plan of Treatment Upcoming Encounters Date Type Department Care Team (Late st Contact Info) Description 02/27/2025 3:00 PM EDT Office Visit [facility] ADULT DENTAL [address] [place] [address] Calista Tejeda [address] [place] [address] documented as of this encounter Visit Diagnoses Not on filedocumented in this encounter
--- OUTSIDE RECORDS SUMMARY | 2024-10-23 13:54 | XMS_ITS | Encounter Summary ---
Author Organization [employer] [facility] Address [address] [facility] 7t h Floor [place] [id number] Care Team Providers Care Warehouse Shipping Clerk Name Role Phone Unavailable Primary Care Provider Unavailabl e Encounter Details Date Type Department Care Team (Latest Contact Info) Description 06/05/2019 Abstract [facility] CON[facility] Dental, Provider, DDS Social History [...] Description 02/27/2025 3:00 PM EDT Office Visit [facility] ADULT DENTAL [address] [place] [address] Calista Tejeda [address] [place] [address] documented as of this encounter Visit Diagnoses Not on filedocumented in this encounter
--- OUTSIDE RECORDS SUMMARY | 2024-10-23 13:54 | XMS_ITS | Encounter Summary ---
Author Organization [employer] [facility] Address [address] [facility] 7t [place] [address] Care Team Providers Care Apprentice Pattern Maker Name Role Phone Unavailable Primary Care Provider Unavailabl e Encounter Details Date Type Department Care Team (Late Contact Info) Description 07/13/2022 Abstract [facility] ADULT DENTAL [address] [place] [address] Dental, Provider, DDS Social History Tobacco Use [...] Description 02/27/2025 3:00 PM EDT Office Visit [facility] ADULT DENTAL [address] [place] [address] Nikhil, Calista [address] [place] [address] documented as of this encounter Procedures Procedure [...]
--- OUTSIDE RECORDS SUMMARY | 2024-10-23 13:54 | XMS_ITS | Clinical Summary ---
Author Organization [employer] [facility] Address [address] [facility] 7t [place] [address] Care Team Providers Care Executive Producer Name Role Phone Unavailable Primary Care Provider [...] Description 02/27/2025 3:00 PM EDT Office Visit [facility] ADULT DENTAL [address] [place] [address] Nikhil, Calista [address] [place] [address] Health Maintenance Due Date Last Done Comments [...]
--- OUTSIDE RECORDS SUMMARY | 2024-10-23 13:54 | XMS_ITS | Encounter Summary ---
Author Organization [employer] [facility] [facility] Address [address] [facility] 7t [place] [address] Care Team Providers Care Computer Forensics Analyst Name Role Phone Unavailable Primary Care Provider Unavailabl e Reason for Visit * Reason Onset Date Comments referral/xrays 03/17/2023 Encounter Details Date Type Department Care Team (Late st Contact Info) Description 03/17/2023 Telephone [facility] ADULT DENTAL [address] [place] [address] Kathe Chairez DDS [address] [place], [place] [phone] referral/xrays Social History Tobacco Use Types Packs/Day [...] Josefa Ruffin - 03/17/2023 9:52 AM EDT [facility] called stating that patient has an appt today and they need the referral and xrays sent over for visit. I did fax the referral from our department but they requested xrays be emailed [email or web address] documented in this encounter Plan of Treatment Upcoming Encounters Date Type Department Care Team (Late st Contact Info) Description 02/27/2025 3:00 PM EDT Office Visit [facility] ADULT DENTAL [address] [place] [address] Calista Tejeda [address] [place] [phone] documented as of this encounter Visit Diagnoses Not on filedocumented in this encounter
--- OUTSIDE RECORDS SUMMARY | 2024-10-23 13:54 | XMS_ITS | Encounter Summary ---
Author Organization [employer] [facility] Address [address] [facility] 7t [place] [address] Care Team Providers Care Cleaner Carpet And Upholstery Name Role Phone Unavailable Primary Care Provider Unavailabl e Encounter Details Date Type Department Care Team (Late st Contact Info) Description 09/15/2022 Orders Only [facility] ADULT DENTAL [address] [place] [address] Kathe Chairez, RADHAS [address] [place] [address] Periapical abscess without sinus (Primary Dx) Social [...] Description 02/27/2025 3:00 PM EDT Office Visit [facility] ADULT DENTAL [address] [place] [address] Quoc Tejedaaris [address] [place] [address] documented as of this encounter Visit Diagnoses Diagnosis Periapical abscess without sinus- Primary documented in this encounter
--- OUTSIDE RECORDS SUMMARY | 2024-10-23 13:54 | XMS_ITS | Encounter Summary ---
Author Organization [employer] Address [address] [facility] 7t [place] [address] Care Team Providers Care Transit Clerk Name Role Phone Unavailable Primary Care Provider Unavailabl e Reason for Visit * Reason Onset Date Comments referrral 12/28/2022 Encounter Details Date Type Department Care Team (Late st Contact Info) Description 12/28/2022 Telephone [facility] ADULT DENTAL [address] [place] [address] Kathe Chairez DDS [address] [place], [place] [phone] referrral Social History Tobacco Use Types Packs/Day [...] 12/30/2022 11:25 AM EDT Pt could visit [facility], but he has to call to see if they could help him. 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 Dr. Dawson, however is coming back soon but we don't know exactly when. * Telephone Encounter - Josefa Ruffin - 12/28/2022 3:57 PM EDT Patient called in stating that he contacted [facility] for an appt and was told [...] Description 02/27/2025 3:00 PM EDT Office Visit [facility] ADULT DENTAL [address] [place] [address] Calista Tejeda [address] [place] [address] documented as of this encounter Visit Diagnoses Not on filedocumented in this encounter
--- OUTSIDE RECORDS SUMMARY | 2024-10-23 13:54 | XMS_ITS | Clinical Summary ---
Author Organization [employer] [facility] it Address [address] [place] [address] Care Team Providers Care Director Of Programming Name Role Phone Unavailable Primary Care Provider [...]
--- OUTSIDE RECORDS SUMMARY | 2024-10-23 13:54 | XMS_ITS | Encounter Summary ---
Author Organization [employer] [facility] Address [address] [facility] 7t [place] [address] Care Team Providers Care Occupational Therapy Assist Name Role Phone Unavailable Primary Care Provider Unavailabl e Encounter Details Date Type Department Care Team (Late st Contact Info) Description 08/03/2023 Abstract [facility] ADULT DENTAL [address] [place] [address] Calista Tejeda [address] [place] [address] Social History Tobacco Use Types Packs/Day Years [...] Description 02/27/2025 3:00 PM EDT Office Visit [facility] ADULT DENTAL [address] [place] [address] Calista Tejeda [address] [place] [address] documented as of this encounter Visit Diagnoses Not on filedocumented in this encounter
[2024-10-23 15:04] LABS: Influenza A PCR NEGATIVE (Negative); Influenza B PCR NEGATIVE (Negative); Resp Syncy Virus RNA Qual PCR NEGATIVE (Negative); SARS COV2 PCR INHOUSE POSITIVE (Negative)
== END 2024-10-23 11:04 | disposition home or self-care (01) ==
LOC: HO.LAB 11:03
PROVIDERS: Physician Assistant; PCP Physician Assistant
DX: B34.9 Viral infection, unspecified (principal); R09.89 Other specified symptoms and signs involving the circulatory and respiratory systems; R50.9 Fever, unspecified
CPT/HCPCS: 0241U; 99212

== ENCOUNTER 2024-10-31 13:33 | Outpatient (AMB) | payer OTHER, SELFPAY ==
--- NOTE | 2024-10-31 13:40 | A.OFFVIS_ITS ---
Intake Visit Reasons: 3m follow up Intake Note: Patient presents today for follow up for bilateral hydroceles, varicocele and cysts Urology Medications: none Blood Thinner: none Laborer Aquatic Life Required: Yes Laborer Aquatic Life Services: Laborer Aquatic Life Present Laborer Aquatic Life Name: Scot [id number] Accompanied by: Self / Same As Patient Allergies No Known Allergies [No Known Allergies*] Allergy (Verified 10/31/24 14:18) Medication List - Last Reconciled 10/31/24 by MARGARET Martin albuterol sulfate 90 mcg/actuation (Ventolin HFA) 1 puff inhalation Q8H 30 days baclofen 20 mg PO BID 30 days citalopram (Celexa) 20 mg PO DAILY 30 days cyclobenzaprine 10 mg PO TID PRN nicotine 1 patch transdermal DAILY 14 days nicotine (polacrilex) 2 mg buccal Q2H PRN 30 days omeprazole 40 mg PO DAILY propranolol 10 mg PO ONCE PRN 15 days sildenafil (Viagra) 100 mg PO ONCE PRN 30 days HPI Comments Details: Bran is a pleasant 39-year-old Mauritian-speaking male patient of Dr. Solis. He presents to the office today for follow-up of his erectile dysfunction and scrotal discomfort. In discussion with the patient today he reports to be doing and feeling well. He reports feeling episodes of ED he had been experiencing have somewhat subsided and he has not needed to utilize p.r.n. dosing of PDE5 medications. He denies having had any scrotal discomfort since his last office visit here. He denies any bothersome urinary issues or concerns. Previous labs have included testosterone free and total as noted and trended below. Testosterone: 05/07 887 Free testosterone 05/07 127.7 Previous workup for scrotal discomfort patient had been experiencing includes a scrotal ultrasound 08/05 noting bilateral arterial and venous flow noted. Small bilateral hydroceles noted. Varicocele noted on the left. Epididymal head cyst on the left hand appendix testes versus complex epididymal cyst on the right. He continues to report intermittent infrequent episodes of scrotal discomfort. He reports noting left-sided varicocele. We discussed at length potential causes of erectile dysfunction. We discussed and stressed the importance of limiting recreational marijuana as well as nicotine dependence. He otherwise denies any bothersome urinary issues. He denies urinary urgency, urinary frequency, incontinence, nocturia, hematuria, dysuria, foul smelling urine, changes to urinary stream, flank pain, fever, and or chills. He is happy with his current voiding parameters. In office urinalysis results reviewed with the patient today. He otherwise offers no other issues or concerns at this time. [facility] Surgical History No pertinent past surgical history Family History Father Hypertension Mother Murder Maternal Grandmother CAD (coronary artery disease) Hypertension Sister In good health Son In good health Social History Housing: Apartment Alcohol intake: never Patient Tobacco Use Status: Current everyday Tobacco user Tobacco use type: Cigarette Cigarette Packs Per Day: 0.5 Cigarettes Per Day: 6 e-Cigarette/Vaping Use: Never Used Second Hand Smoke Exposure: Yes Substance Use Type: Marijuana service: No Current occupational status: employed Current occupational exposures/hazards: No Cognitive needs: No Hearing needs: No Vision needs: No Review of Systems Const All systems reviewed & are unremarkable except as noted in HPI and below Physical Exam Const General: cooperative, healthy appearing, comfortable, no acute distress, well developed, alert and awake Nutritional Appearance: thin Orientation/consciousness: patient oriented x3 Limitations: no limitations HEENT Head: Yes normal to inspection, Yes normocephalic and Yes atraumatic Ears: hearing grossly normal bilaterally Eyes General: appearance normal, both eyes and all related structures Neck Neck: Yes normal visual inspection and Yes trachea midline Chest Chest palpation & inspection: normal inspection of the chest Resp Effort & Inspection: normal respiratory effort and able to speak in complete sentences Cardio Rate: regular rate GI Inspection: Yes normal to inspection General: Yes no CVA tenderness Back/Spine/Pelvis Back: no CVA tenderness Skin General skin exam: no rashes or lesions noted Neuro General: patient oriented x3 Extrem General: Yes normal to inspection Psych Appearance: grossly normal and well kempt Mental Status: mental status grossly normal Speech and movement: Normal speech and movement present and Clear speech present Affect: normal affect Attitude: cooperative Thought process: Normal thought process present Thought content: Normal thought content present Insight: Fair insight present (Psych) Judgement: Fair judgement present (Psych) Results AMB Urinalysis, Automated UA Leukoctes 0 Elizabeth/uL Last Edit by roomlinxbeverly Jiménez on 10/31/24 14:12 UA Nitrite Last Edit by [facility] [employer] Jiménez on 10/31/24 14:12 UA Urobilinogen 0.2 mg/dL Last Edit by roomlinxbeverly [employer] on 10/31/24 14:12 UA Protein 0 mg/dL Last Edit by roomlinxbeverly [employer] on 10/31/24 14:12 UA pH 7.5 Last Edit by roomlinxbeverly [employer] on 10/31/24 14:12 UA Blood 0 Rosalio/uL Last Edit by [employer] on 10/31/24 14:12 UA Specific [place] 1.005 Last Edit by roomlinxbeverly [employer] on 10/31/24 14:12 UA Ketone Last Edit by roomlinxbeverly [employer] on 10/31/24 14:12 UA Bilirubin 0 mg/dL Last Edit by [employer] on 10/31/24 14:12 UA Glucose 0 mg/dL Last Edit by roomlinxbeverly Jiménez on 10/31/24 14:12 Assessment & Plan Assessment & Plan (1) Erectile dysfunction: Code(s): N52.9 - Male erectile dysfunction, unspecified Category: Medical Qualifiers: Erectile dysfunction type: drug-induced Qualified Code(s): N52.2 - Drug-induced erectile dysfunction (2) Bilateral hydrocele: Code(s): N43.3 - Hydrocele, unspecified Category: Medical (3) Epididymal cyst: Code(s): N50.3 - Cyst of epididymis Category: Medical (4) Varicocele: Code(s): I86.1 - Scrotal varices Category: Medical Plan In office urinalysis results reviewed with the patient today; as noted above. Continue sildenafil as discussed and prescribed; refill provided. Discussed at length importance of limiting/quitting recreational marijuana as well as nicotine dependence for overall health and well-being as well as to assist with obtaining and maintaining his erections. Discussed at length potential causes of ED, hydroceles, and epididymal head cysts. He otherwise denies any bothersome urinary issues. He reports be happy with current voiding parameters. Will continue with surveillance monitoring of bilateral hydroceles, epididymal head cysts, and varicocele Follow-up in 6 months; or sooner with any issues, concerns, and or questions. Orders: Orders AMB Urinalysis Automated Today Z13.9 - Encounter for screening, unspecified Medications: Refilled sildenafil (Viagra) administer 1 hour prior to activity [facility] DR33 [id number] 100 mg PO ONCE 30 days PRN 10 tabs 3RF sexual activity Patient Instructions: The patient had an opportunity to ask questions regarding the treatment plan. All questions were answered. Physical exam, labs, and imaging were discussed and reviewed in detail. As well as risks, benefits, and discussion of treatment choices. No major barriers to understanding were identified. The patient expressed understanding and agreement with the above treatment plan. The patient was made aware they should contact our office by phone for worsening of their current condition, the appearance of new symptoms, or with any questions or concerns. Compliance is encouraged with any medications and follow up testing that is ordered. It is a privilege to be allowed the opportunity to participate in? your urological care.? Again, if you have any questions or concerns If you have any questions or concerns please do not hesitate to contact me. The office is [phone]. This note is constructed using voice recognition software. While every effort has been made to ensure accuracy flight engineer errors may have been included. Yours sincerely, PRATIK Martin Coding Level of Care Code Est Pt Level 3 (57240) Diagnoses Drug-induced erectile dysfunction N52.2 Erectile dysfunction type: drug-induced Bilateral hydrocele N43.3 Epididymal cyst N50.3 Varicocele I86.1
--- OUTSIDE RECORDS SUMMARY | 2024-10-31 16:07 | XMS_ITS | Clinical Summary ---
Author Organization [employer] [facility] it Address [address] [place] [address] Care Team Providers Care Plant Facilities Technician Name Role Phone Unavailable Primary Care Provider [...]
== END 2024-10-31 14:16 | disposition home or self-care (01) ==
LOC: HO.HUSH 13:34
PROVIDERS: PCP Physician Assistant; Visit Provider Nurse Practitioner Family
DX: N52.2 Drug-induced erectile dysfunction (principal); N43.3 Hydrocele, unspecified; N50.3 Cyst of epididymis; I86.1 Scrotal varices; Z13.9 Encounter for screening, unspecified
CPT/HCPCS: 99213

== ENCOUNTER → 2024-10-31 13:33 | Outpatient (BNVA) | payer OTHER, SELFPAY | PROVIDERS: PCP Physician Assistant; Visit Provider Nurse Practitioner Family | DX: N52.2 Drug-induced erectile dysfunction (principal); N43.3 Hydrocele, unspecified; N50.3 Cyst of epididymis; I86.1 Scrotal varices | CPT/HCPCS: 81003; 99212 ==

== ENCOUNTER 2024-11-06 13:19 | Outpatient (AMB) | payer OTHER, SELFPAY ==
--- NOTE | 2024-11-06 13:22 | A.OFFPC_ITS ---
Vital Signs 3 11/06/24 13:36 Height 6 ft 3 in Weight 173 lb 4 oz BMI 21.7 BP 110/60 Blood Pressure Location Lt brachial Position Sitting Pulse 80 Pulse Source Pulse Oximeter Temp 97.3 F Temp Source Temporal Artery Scan Pulse Oximetry (%) 98 Oxygen Delivery Method Room Air Intake Visit Reasons: PE Site Manager Required: Yes Site Manager Language: Label Fuser Tender Name: Ko BlancIris RAOUL Accompanied by: Self / Same As Patient Allergies No Known Allergies [No Known Allergies*] Allergy (Verified 11/06/24 13:45) Medication List - Last Reconciled 11/06/24 by Randell Solis PA-C albuterol sulfate 90 mcg/actuation (Ventolin HFA) 1 puff inhalation Q8H 30 days baclofen 20 mg PO BID 30 days citalopram (Celexa) 20 mg PO DAILY 30 days cyclobenzaprine 10 mg PO TID PRN nicotine 1 patch transdermal DAILY 14 days nicotine (polacrilex) 2 mg buccal Q2H PRN 30 days omeprazole 40 mg PO DAILY propranolol 10 mg PO ONCE PRN 15 days sildenafil (Viagra) 100 mg PO ONCE PRN 30 days Tobacco use date assessed: 09/11/24 Dental Screening Dental Screen Date: 09/11/24 HPI PE 2 HPI0 Details Patient is a 39-year-old male here today for an annual physical. Patient is [place] Islander-speaking only remote court interpreter is off line thus need to use RAOUL (ko Blanc) was [place]er-speaking. Concern--> reports having a lump over the volar region of his right wrist whenever he flexes right wrist. Reports when doing pushups he does get pain in his right wrist as well. ? Patient has a past medical history is if can not for generalized anxiety disorder, intermittent SVT , chronic lumbar spine pain. .. BARRINGTON:? He continues on Celexa to which he reports reduce his anxiety. He reports he still has increased anxiety and anger from time to time with lichen increased dose of his anxiety medication. .. Tobacco dependence:? He reports he has cut down his cigarette smoking. Still smokes a few cigarettes per day. Does have nicotine gum available to him .. Vaccines: Up-to-date with tetanus, up-to-date with pneumonia vaccine [facility] Surgical History No pertinent past surgical history Family History Father Hypertension Mother Murder Maternal Grandmother CAD (coronary artery disease) Hypertension Sister In good health Son In good health Social History Housing: Apartment Alcohol intake: never Patient Tobacco Use Status: Current everyday Tobacco user Tobacco use type: Cigarette Cigarette Packs Per Day: 0.5 Cigarettes Per Day: 6 e-Cigarette/Vaping Use: Never Used Second Hand Smoke Exposure: Yes Substance Use Type: Marijuana service: No Current occupational status: employed Current occupational exposures/hazards: No Cognitive needs: No Hearing needs: No Vision needs: No Questionnaire Thrive Questionnaire Date Thrive assessed: 09/11/24 BARRINGTON-7 AMB Questionnaire BARRINGTON-7 Date BARRINGTON - 7 assessed: 09/11/24 Source: Developed by Drs. Mundo Hartley, Arcelia Falcon, Donny Jaramillo and colleagues, with an educational tami from [employer]. Review of Systems Const Denies body aches, Denies chills, Denies excessive sweating, Denies fatigue, Denies fever(s) and Denies headache(s) Eyes Denies blurry vision ENT Denies dysphagia, Denies vertigo, Denies dizziness, Denies headache(s), Denies hearing loss and Denies tinnitus Card Denies chest pain, Denies chest pain with activity, Denies syncope, Denies irregular heart rhythm and Denies dyspnea Resp Denies chest congestion, Denies cough, Denies hemoptysis, Denies dyspnea and Denies wheezing GI Denies abdominal pain, Denies melena, Denies hematochezia, Denies coffee ground emesis, Denies dysphagia, Denies diarrhea, Denies nausea and Denies vomiting Denies difficulty urinating, Denies dysuria, Denies urinary frequency, Denies urinary hesitancy and Denies urinary urgency Musc Denies arthralgias, Denies limited range of motion, Denies muscle cramps and Denies muscle weakness Skin/Breast Denies rash and Denies skin ulcer Neuro Denies Abnormal speech present, Denies confusion, Denies vertigo, Denies dizziness, Denies syncope, Denies headache(s), Denies memory loss and Denies seizure-like activity Psych Denies anxiety, Denies confusion, Denies depression, Denies memory loss, Denies panic attacks and Denies paranoia Endo Denies excessive sweating, Denies fatigue, Denies flushing, Denies polydipsia and Denies polyuria Aller/Immun Denies wheezing Physical exam (Primary Care) Vital Signs: Last Vital Signs Temp 97.3 F 11/06/24 13:36 Pulse 80 11/06/24 13:36 BP 110/60 11/06/24 13:36 Pulse Ox 98 11/06/24 13:36 Oxygen Delivery Method Room Air 11/06/24 13:36 BMI result Body Mass Index 21.7 Tobacco/Smoking Status: Tobacco use Status Tobacco use date assessed 09/11/24 11/06/24 13:22 Patient Tobacco Use Status Current everyday Tobacco 11/06/24 13:22 Tobacco use type Cigarette 11/06/24 13:22 e-Cigarette/Vaping Use Never Used 11/06/24 13:22 Are you ready to quit: No Tobacco cessation counseling provided: Yes Items discussed: Nicotine replacement Relapse Prevention: discussed the importance of a supportive environment, discussed negative mood or depression after quitting, weight gain after smoking is common and discussed dietary, exercise and/or lifestyle changes Number of minutes spent counselin CPT code: 34634 - 4-10 Minutes Thrive Assessment: Date of Thrive Assessment Date Thrive assessed 09/11/24 11/06/24 13:22 Const General: cooperative, comfortable, no acute distress, alert and awake; No confusion Orientation/consciousness: oriented to person, oriented to place, patient oriented x3 and No confusion HENMT Head: Yes normocephalic Ears: external ears normal and TM's normal bilaterally Face and sinus: No sinus tenderness Mouth: Normal oral and palatal mucosa present and tongue normal Teeth and gingiva: dentition normal and gingiva normal Throat: Yes posterior oropharynx normal, Yes tonsils normal and Yes uvula midline Eyes Conjunctivae: conjunctivae normal Sclerae: sclerae normal Pupils: Equal, round and reactive pupils present EOM: EOMs intact bilaterally Direct Ophthalmoscopy: No no photophobia Neck Neck: Yes no lymphadenopathy, No tender and Yes no JVD Thyroid: Thyroid normal Carotids: no bruits Chest Chest palpation & inspection: no tenderness Resp Effort & Inspection: normal respiratory effort, no audible wheezes, not labored and no stridor Auscultation: no crackles, no rales, no rhonchi and no wheezes Cardio Jugular venous distension: no JVD Rate: regular rate, not bradycardic and not tachycardic Rhythm: regular rhythm Bruits: no carotid bruits Peripheral pulses: Peripheral pulses 2+ throughout GI Inspection: Yes normal to inspection, No abdominal wall ecchymosis and No visible herniation Palpation (GI): Soft to palpation, nontender, no guarding, not rigid and No hepatosplenomegaly present Auscultation: normoactive bowel sounds General: Yes no CVA tenderness Back/Spine/Pelvis Back: no CVA tenderness and No back tenderness Cervical Spine: cervical ROM normal Thoracic/Lumbar Spine: thoracic and lumbar spine normal to inspection, straight leg raise negative bilaterally, No thoraco-lumbar ROM limited and No lumbar spinal tenderness Skin Lesions: no lesions Rashes: no rashes Wounds: no wounds Neuro General: oriented to person, oriented to place, patient oriented x3, CN's II-XI intact bilaterally and No confusion Cranial nerves: Yes Equal, round and reactive pupils present and Yes Normal accommodation reflex present Cognition (Neuro): normal cognition Speech: No Abnormal speech present Gait exam (Neuro): Normal gait present Motor exam (neuro): 5/5 motor strength present throughout Extrem Right upper extremity: full ROM; no cyanosis Left upper extremity: full ROM; no cyanosis Elbow/forearm/wrist images: 2 1. CYSTIC LIKE MASS WHEN FLEXING RIGHT WRIST. Right lower extremity: no edema Left lower extremity: no edema Psych Appearance: grossly normal Mental Status: mental status grossly normal Affect: normal affect Attitude: cooperative Thought process: Normal thought process present Coding Level of Care Code Est Pt Prev Care 18-39y(28836) Diagnoses Annual physical exam Z00.00 BARRINGTON (generalized anxiety disorder) F41.1 Somatic dysfunction of right sacroiliac joint M99.04 Synovial cyst of right wrist M71.331 Tobacco dependence F17.200 Additional Codes Vital Signs *Quality* - CPT code: 28295 - 4-10 Minutes ([id number]) Assessment & Plan Assessment & Plan (1) Annual physical exam: Code(s): Z00.00 - Encounter for general adult medical examination without abnormal findings Category: Medical Plan: As per HPI (2) BARRINGTON (generalized anxiety disorder): Code(s): F41.1 - Generalized anxiety disorder Category: Medical Plan: Patient reports his anxiety has been well controlled with current medication. Not interested in speaking with a mental health therapist at this time. (3) Somatic dysfunction of right sacroiliac joint: Code(s): M99.04 - Segmental and somatic dysfunction of sacral region Category: Medical Plan: Continues to have lower back pain to which he uses muscle relaxers and p.r.n. use of tramadol with good effect. He continues to work a physically demanding job. (4) Synovial cyst of right wrist: Code(s): M71.331 - Other bursal cyst, right wrist Category: Medical Plan: As per HPI patient has noted a right wrist lump whenever he flexes his right wrist. He is interested in getting x-ray of his right wrist and seeing orthopedics for possible cortisone injection. (5) Tobacco dependence: Code(s): F17.200 - Nicotine dependence, unspecified, uncomplicated Category: Medical Plan: Patient does understand he needs to quit smoking. Will provide him with nicotine patches to use to reduce his smoking. Orders: Orders 2 XR hand wrist RT Today M71.331 - Other bursal cyst, right wrist Referrals 2 Orthopedics Referral M71.331 - Other bursal cyst, right wrist Medications: New 2 tramadol 50 mg PO BID 7 days PRN 14 tabs 0RF pain M99.04 - Segmental and somatic dysfunction of sacral region Refilled 2 nicotine 1 patch transdermal DAILY 14 days 14 ea 0RF F17.200 - Nicotine dependence, unspecified, uncomplicated
[2024-11-06 13:36] VITALS: BP 110/60; PULSE 80; TEMP 36.3; O2SAT 98; BMI 21.7
== END 2024-11-06 14:04 | disposition home or self-care (01) ==
LOC: HO.HMCH 13:20
PROVIDERS: PCP Physician Assistant; Visit Provider Physician Assistant
DX: Z00.00 Encounter for general adult medical examination without abnormal findings (principal); F41.1 Generalized anxiety disorder; M99.04 Segmental and somatic dysfunction of sacral region; M71.331 Other bursal cyst, right wrist; F17.200 Nicotine dependence, unspecified, uncomplicated

== ENCOUNTER → 2024-11-06 13:19 | Outpatient (BNVA) | payer OTHER, SELFPAY | PROVIDERS: PCP Physician Assistant; Visit Provider Physician Assistant | DX: Z00.00 Encounter for general adult medical examination without abnormal findings (principal); F41.1 Generalized anxiety disorder; M99.04 Segmental and somatic dysfunction of sacral region; M71.331 Other bursal cyst, right wrist; F17.200 Nicotine dependence, unspecified, uncomplicated; Z71.6 Tobacco abuse counseling | CPT/HCPCS: 99395 ==

== ENCOUNTER 2024-11-15 12:38 | Outpatient (REF) | payer OTHER, SELFPAY ==
--- NOTE | ~2024-11-15 | XR_ITS ---
EXAMINATION: XR WRIST 3 OR MORE VIEWS RIGHT, XR HAND 3 OR MORE VIEWS RIGHT HISTORY: BURSAL CYST COMPARISON: Comparison is made with the prior examination of the right wrist dated 11/15/2018. FINDINGS: Seven views of the right hand and wrist including a scaphoid view are submitted. Osseous mineralization is normal. There is no fracture or dislocation. The joint spaces are preserved. The soft tissues are unremarkable. XR/XR hand RT min 3V IMPRESSION: Unremarkable examination of the right hand and wrist. Electronically signed by: Mundo Cole MD 11/18/2024 10:09 AM EDT
--- NOTE | ~2024-11-15 | XR_ITS ---
EXAMINATION: XR WRIST 3 OR MORE VIEWS RIGHT, XR HAND 3 OR MORE VIEWS RIGHT HISTORY: BURSAL CYST COMPARISON: Comparison is made with the prior examination of the right wrist dated 11/15/2018. FINDINGS: Seven views of the right hand and wrist including a scaphoid view are submitted. Osseous mineralization is normal. There is no fracture or dislocation. The joint spaces are preserved. The soft tissues are unremarkable. XR/XR wrist RT min 3V IMPRESSION: Unremarkable examination of the right hand and wrist. Electronically signed by: Mundo Cole MD 11/18/2024 10:09 AM EDT
--- OUTSIDE RECORDS SUMMARY | 2024-11-15 14:28 | XMS_ITS | Clinical Summary ---
Author Organization [employer] [facility] it Address [address] [place] [address] Care Team Providers Care Assembler Molded Frames Name Role Phone Unavailable Primary Care Provider [...]
--- OUTSIDE RECORDS SUMMARY | 2024-11-15 14:28 | XMS_ITS | Encounter Summary ---
Author Organization [email or web address] Address [address] [facility] 7t [place] [address] Care Team Providers Care Production Officer Name Role Phone Unavailable Primary Care Provider Unavailabl e Reason for Visit * Reason Onset Date Comments referrral 12/28/2022 Encounter Details Date Type Department Care Team (Late st Contact Info) Description 12/28/2022 Telephone [facility] ADULT DENTAL [address] [place] [address] Kathe Chairez DDS [address] [place], [place] [phone] referrral Social History Tobacco Use Types Packs/Day [...] 12/30/2022 11:25 AM EDT Pt could visit [facility], but he has to call to see if they could help him. To please contact for other negative notcher specialists in the area. Dr. Dawson, however is coming back soon but we don't know exactly when. * Telephone Encounter - Josefa Ruffin - 12/28/2022 3:57 PM EDT Patient called in stating that he contacted [facility] for an appt and was told that [...] Care Team (Late st Contact Info) Description 12/09/2024 1:30 PM EDT Office Visit [facility] ADULT DENTAL [address] [place] [address] Kathe Chairez DDS [address] [place] [address] 05/09/2025 1:00 PM EDT Office Visit [facility] ADULT DENTAL [address] [place] [address] Calista Tejeda [address] [place] [address] documented as of this encounter Visit Diagnoses Not on filedocumented in this encounter
--- OUTSIDE RECORDS SUMMARY | 2024-11-15 14:28 | XMS_ITS | Encounter Summary ---
Author Organization [employer] Address [address] [facility] 7t [place] [address] Care Team Providers Care Remote Recruiter Name Role Phone Unavailable Primary Care Provider Unavailabl e Reason for Visit * Reason Onset Date Comments calrification of referral 04/21/2023 Appointment 04/21/2023 Encounter Details Date Type Department Care Team (Late st Contact Info) Description 04/21/2023 Telephone [facility] ADULT DENTAL [address] [place] [address] Kathe Chairez DDS [address] [place], [place] [phone] calrification of referral; Appointment Social History Tobacco [...] given a referral back in November for [facility]. He states that he is not [...] I asked him if he went to [facility] as the referral stated and he states that he does not know what office he is going to only that it is in [place]. He wants to speak to provider because he does not know if he is getting the treatment he is supposed to be getting DR documented in this encounter Plan of Treatment Upcoming Encounters Date Type Department Care Team (Late st Contact Info) Description 12/09/2024 1:30 PM EDT Office Visit [facility] ADULT DENTAL [address] [place] [address] Kathe Chairez DDS [address] [place] [address] 05/09/2025 1:00 PM EDT Office Visit [facility] ADULT DENTAL [address] [place] [address] Calista Tejeda [address] [place] [address] documented as of this encounter Visit Diagnoses Not on filedocumented in this encounter
--- OUTSIDE RECORDS SUMMARY | 2024-11-15 14:28 | XMS_ITS | Encounter Summary ---
Author Organization [employer] [facility] Address [address] [facility] 7t [place] [address] Care Team Providers Care Loan Administrator Name Role Phone Unavailable Primary Care Provider Unavailabl e Encounter Details Date Type Department Care Team (Late st Contact Info) Description 08/03/2023 Abstract [facility] ADULT DENTAL [address] [place] [address] Calista Tejeda [address] [place] [address] Social History Tobacco Use Types Packs/Day Years [...] Description 12/09/2024 1:30 PM EDT Office Visit [facility] ADULT DENTAL [address] [place] [address] Mancini-Pimentel, Kathe, DDS [address] [place] [address] 05/09/2025 1:00 PM EDT Office Visit [facility] ADULT DENTAL [address] [place] [address] Calista Tejeda [address] [place] [address] documented as of this encounter Visit Diagnoses Not on filedocumented in this encounter
--- OUTSIDE RECORDS SUMMARY | 2024-11-15 14:28 | XMS_ITS | Clinical Summary ---
Author Organization [facility] Address [address] [facility] 7t [place] [address] Care Team Providers Care Regional Controller Name Role Phone Unavailable Primary Care Provider [...] Active Problems Problem Noted Date Diagnosed Date Advanced periodontitis 11/01/2024 Gingival bleeding 11/01/2024 Dental calculus 07/17/2023 Periodontal disease 07/17/2023 Missing teeth, acquired 07/17/2023 Localized gingival recession, moderate 3 Dental caries 06/05/2023 Encounters Date Type Department Care Team Description 11/01/2024 10:00 AM EDT Office Visit [facility] ADULT DENTAL [address] [place] [address] Calista Tejeda Advanced periodontitis (Primary Dx); Dental calculus; Teeth missing; Gingival bleeding; Excessive attrition of teeth, limited to enamel from Last 3 Months Immunizations Name Administration Dates Next Due Influenza [...] Sign Reading Time Taken Comments Blood Pressure 116/64 11/01/2024 9:57 AM EDT Pulse 76 08/16/2023 2:14 PM EST Temperature - - Respiratory Rate - - Oxygen Saturation - - Inhaled Oxygen Concentration - - Weight - - Height - - Body Mass Index - - Plan of Treatment Upcoming Encounters Date Type Department Care Team (Late st Contact Info) Description 12/09/2024 1:30 PM EDT Office Visit [facility] ADULT DENTAL [address] [place] [address] Kathe Chairez, DDS [address] [place] [address] 05/09/2025 1:00 PM EDT Office Visit [facility] ADULT DENTAL [address] [place] [address] Nikhil, Calista [address] [place] [address] Health Maintenance Due Date Last Done Comments Depression Screening 1987 HIV Screening 1987 Lipid Panel 1987 SDOH Screening 1987 Alcohol/Substance Use Screening 1999 Family Planning (PISQ) 2002 Hepatitis C Screening 2005 Hepatitis A Vaccines (1 of 2 - Risk 2-dose series) 2006 Hepatitis B Vaccines (1 of 3 - 19+ 3-dose series) 2006 COVID-19 Vaccine ( - 2023-2 5 season) 2024 Influenza Vaccine (#1) 2024 , 07/02/2019 Dental Oral Exam 05/05/2025 11/01/2024, 06/21/2023 Dental Prophylaxis 05/05/2025 11/01/2024, 07/17/2023 Tobacco Screening 11/01/2025 11/01/2024 Dental X-Ray: Bitewings 11/02/2025 11/02/19 25, 06/21/2023, 09/05/2022 Dental X-Ray: Full Mouth 06/22/2026 06/21/2023 DTaP/Tdap/Td [...] Procedure Name Priority Date/Time Associated Diagnosis Comments COMPREHENSIVE PERIODONTAL EVALUATION - NEW OR ESTABLISHED PATIENT Routine 11/01/2024 10:00 AM EDT PERIODIC ORAL EVALUATION - ESTABLISHED PATIENT Routine 11/01/2024 10:00 AM EDT CASE PRESENTATION, DETAILED AND EXTENSIVE TREATMENT PLANNING Routine 11/01/2024 10:00 AM EDT Advanced periodontitis Dental calculus Teeth missing Gingival bleeding ORAL HYGIENE INSTRUCTIONS Routine 2024 10:00 AM EDT Advanced periodontitis Dental calculus Teeth missing Gingival bleeding PROPHYLAXIS - ADULT Routine 11/01/2024 1 0:00 AM EDT Advanced periodontitis Dental calculus Teeth missing Gingival bleeding 24,25 INTRAORAL - PERIAPICAL EACH ADDITIONAL RADIOGRAPHIC IMAGE Routine 11/01/2024 10:00 AM EDT Advanced periodontitis Dental calculus Teeth missing Gingival bleeding 8,9 INTRAORAL - PERIAPICAL FIRST RADIOGRAPHIC IMAGE Routine 11/01/2024 10:00 AM EDT Advanced periodontitis Dental calculus Teeth missing Gingival bleeding BITEWINGS - 4 RADIOGRAPHIC IMAGES Routine 11/01/2024 10:00 AM EDT Advanced periodontitis Dental calculus Gingival bleeding INTRAORAL - COMPLETE SERIES OF RADIOGRAPHIC IMAGES Routine 06/21/2023 1:30 PM EST from Last 3 Months or Most Recently Relevant to Health Maintenance Insurance DENTAL - HSN PARTIAL (MEDICAID) DENTAL - HSN PARTIAL (MEDICAID)
--- OUTSIDE RECORDS SUMMARY | 2024-11-15 14:28 | XMS_ITS | Encounter Summary ---
Author Organization [facility] Address [address] [facility] 7t [place] [address] Care Team Providers Care Driver Utility Worker Name Role Phone Unavailable Primary Care Provider Unavailabl e Encounter Details Date Type Department Care Team ([facility] Contact Info) Description 09/15/2022 Orders Only [facility] ADULT DENTAL [address] [place] [address] Kathe ChairezRADHAS [address] [place] [address] Periapical abscess without sinus (Primary Dx) Social [...] Department Care Team (Late Contact Info) Description 12/09/2024 1:30 PM EDT Office Visit [facility] ADULT DENTAL [address] [place] [address] Esperanza Chairezmia, DDS [address] [place] [address] 05/09/2025 1:00 PM EDT Office Visit [facility] ADULT DENTAL [address] [place] [address] Calista Tejeda [address] [place] [address] documented as of this encounter Visit Diagnoses Diagnosis Periapical abscess without sinus- Primary documented in this encounter
--- OUTSIDE RECORDS SUMMARY | 2024-11-15 14:28 | XMS_ITS | Encounter Summary ---
Author Organization [employer] [facility] Address [address] [place] [address] [address] [place] [address] Care Team Providers Care Social Work Professor Name Role Phone Unavailable Primary Care Provider Unavailabl e Encounter Details Date Type Department Care Team (Late st Contact Info) Description 07/13/2022 Abstract [facility] ADULT DENTAL [address] [place] [address] Dental, Provider, DDS Social History Tobacco Use [...] Description 12/09/2024 1:30 PM EDT Office Visit [facility] ADULT DENTAL [address] [place] [address] Mancini-Pimentel, Kathe, DDS [address] [place] [address] 05/09/2025 1:00 PM EDT Office Visit [facility] ADULT DENTAL [address] [place] [address] Nikhil, Calista [address] [place] [address] documented as of this encounter Procedures Procedure [...]
--- OUTSIDE RECORDS SUMMARY | 2024-11-15 14:28 | XMS_ITS | Encounter Summary ---
Author Organization [employer] [facility] Address [address] [facility] [address] [place] [address] Care Team Providers Care Fishing Gear Mechanic Name Role Phone Unavailable Primary Care Provider Unavailabl e Reason for Visit * Reason Onset Date Comments referral/xrays 03/17/2023 Encounter Details Date Type Department Care Team (Late st Contact Info) Description 03/17/2023 Telephone [facility] ADULT DENTAL [address] [place] [address] Kathe Chairez DDS [address] [place], [place] [phone] referral/xrays Social History Tobacco Use Types Packs/Day [...] Josefa Ruffin - 03/17/2023 9:52 AM EDT [facility] called stating that patient has an appt today and they need the referral and xrays sent over for visit. I did fax the referral from our department but they requested xrays be emailed [email or web address]. documented in this encounter Plan of Treatment Upcoming Encounters Date Type Department Care Team (Late st Contact Info) Description 12/09/2024 1:30 PM EDT Office Visit [facility] ADULT DENTAL [address] [place] [address] Kathe Chairez, MASHA [address] [place] [address] 05/09/2025 1:00 PM EDT Office Visit [facility] ADULT DENTAL [address] [place] [address] Calista Tejeda [address] [place] [address] documented as of this encounter Visit Diagnoses Not on filedocumented in this encounter
--- OUTSIDE RECORDS SUMMARY | 2024-11-15 14:28 | XMS_ITS | Encounter Summary ---
Author Organization [employer] [facility] Address [address] [facility] 7t [place] [address] Care Team Providers Care Brownfield Redevelopment Specialist Name Role Phone Unavailable Primary Care Provider Unavailabl e Encounter Details Date Type Department Care Team (Latest Contact Info) Description 06/05/2019 Abstract [facility] Dental, Provider, DDS Social History [...] Description 12/09/2024 1:30 PM EDT Office Visit [facility] ADULT DENTAL [address] [place] [address] Mancini-Pimentel, Kathe, DDS [address] [place] [address] 05/09/2025 1:00 PM EDT Office Visit [facility] ADULT DENTAL [address] [place] [address] Nikhil, Calista [address] [place] [address] documented as of this encounter Visit Diagnoses Not on filedocumented in this encounter
== END 2024-11-15 12:39 | disposition home or self-care (01) ==
LOC: HO.XRAY 12:38
PROVIDERS: PCP Physician Assistant; Visit Provider Physician Assistant
DX: M71.331 Other bursal cyst, right wrist (principal)
CPT/HCPCS: 73110; 73130

== ENCOUNTER → 2024-11-15 12:50 | Outpatient (BNV) | payer OTHER, SELFPAY | PROVIDERS: PCP Physician Assistant; Visit Provider Radiology Diagnostic Radiology | DX: M71.331 Other bursal cyst, right wrist (principal); M71.341 Other bursal cyst, right hand | CPT/HCPCS: 73110; 73130 ==

== ENCOUNTER 2024-11-18 14:36 | Outpatient (AMB) | payer OTHER, SELFPAY ==
--- NOTE | 2024-11-18 14:46 | A.OFFVIS_ITS ---
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 Patient reports he currently is not experiencing any pains in the right wrist. He express occasionally also having numbness and tingling in the digits of his right hand. Reports any exacerbation of pain when he is attempting physical activities like push ups or any flexion movement of right hand. His cyst appears on the dorsal aspect of the right wrist. 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 Patient reports he currently is not experiencing any pains in the right wrist. He express occasionally also having numbness and tingling in the digits of his right hand. Reports any exacerbation of pain when he is attempting physical activities like push ups or any flexion movement of right hand. His cyst appears on the dorsal aspect of the right wrist. [facility] Surgical History No pertinent past surgical history Family History Father Hypertension Mother Murder Maternal Grandmother CAD (coronary artery disease) Hypertension Sister In good health Son In good health Social History (Updated 11/18/24 @ 14:50 by DARIUS Hansen) Housing: Apartment Alcohol intake: never Patient Tobacco Use Status: Current everyday Tobacco user Tobacco use type: Cigarette Cigarette Packs Per Day: 0.5 Cigarettes Per Day: 6 e-Cigarette/Vaping Use: Never Used Second Hand Smoke Exposure: Yes Substance Use Type: Marijuana service: No Current occupational status: employed Current occupation: right handed Current occupational exposures/hazards: No Cognitive needs: No Hearing needs: No Vision needs: No Review of Systems Const All systems reviewed & are unremarkable except as noted in HPI and below Physical Exam Vital Signs: BMI result Body Mass Index 22.5 Extrem Other: Patient is alert, oriented, and in no acute distress. Neuro: Normal sensation of the tips of all digits of the right hand at this time Vascular: Cap refill brisk Pain: No tenderness to palpation about mass on right wrist No pain with range of motion of the right hand or wrist in the office today ROM: Patient is able to flex and extend all digits of the right hand fully and without difficulty Patient was able to flex and extend the right wrist fully and without difficulty Skin: No lacerations or abrasions. General: Small, approximately 0.5-0.75 cm in diameter mass noted when the wrist is in flexion of the dorsal aspect of the right wrist No ecchymosis, erythema, or evidence of infection. Psych: Appears grossly normal Affect normal Attitude cooperative Assessment & Plan Assessment & Plan (1) Ganglion cyst of dorsum of right wrist: Code(s): M67.431 - Ganglion, right wrist Category: Medical Plan 1. Ganglion cyst of dorsal right wrist Patient was educated about this condition Patient is educated about the treatment options available At this time, patient would like to proceed with gentle compression and range of motion to try to reduce his pain and avoid any injection or surgical intervention Patient was provided with Carlito bandages to apply gentle compression to the cyst to encourage reuptake of joint fluid Patient will follow-up as needed with any acute concerns Coding Level of Care Code New Pt Level 3 (93539) Diagnoses Ganglion cyst of dorsum of right wrist M67.431
[2024-11-18 14:48] VITALS: BMI 22.5
--- OUTSIDE RECORDS SUMMARY | 2024-11-18 17:27 | XMS_ITS | Encounter Summary ---
Author Organization [employer] [facility] Address [address] 7t [place] [address] Care Team Providers Care Hr Business Partner Consultant Name Role Phone Unavailable Primary Care Provider Unavailabl e Encounter Details Date Type Department Care Team (Late st Contact Info) Description 08/03/2023 Abstract [facility] ADULT DENTAL [address] [place] [address] Calista Tejeda [address] [place] [address] Social History Tobacco Use Types Packs/Day Years [...] Description 12/09/2024 1:30 PM EDT Office Visit [facility] ADULT DENTAL [address] [place] [address] Mancini-Pimentel, Kathe, DDS [address] [place] [address] 05/09/2025 1:00 PM EDT Office Visit [facility] ADULT DENTAL [address] [place] [address] Calista Tejeda [address] [place] [address] documented as of this encounter Visit Diagnoses Not on filedocumented in this encounter
--- OUTSIDE RECORDS SUMMARY | 2024-11-18 17:27 | XMS_ITS | Encounter Summary ---
Author Organization [employer] [facility] Address [address] [place] [address] [address] [place] [address] Care Team Providers Care Taproom Attendant Name Role Phone Unavailable Primary Care Provider Unavailabl e Encounter Details Date Type Department Care Team (Late st Contact Info) Description 07/13/2022 Abstract [facility] ADULT DENTAL [address] [place] [address] Dental, Provider, DDS Social History Tobacco Use [...] Description 12/09/2024 1:30 PM EDT Office Visit [facility] ADULT DENTAL [address] [place] [address] Mancini-Pimentel, Kathe, DDS [address] [place] [address] 05/09/2025 1:00 PM EDT Office Visit [facility] ADULT DENTAL [address] [place] [address] Nikhil, Calista [address] [place] [address] documented as of this encounter Procedures Procedure [...]
--- OUTSIDE RECORDS SUMMARY | 2024-11-18 17:27 | XMS_ITS | Clinical Summary ---
Author Organization [employer] [facility] it Address [address] [place] [address] Care Team Providers Care Stone Engraver Name Role Phone Unavailable Primary Care Provider [...] age to complete this topic Meningococcal B Vaccine Aged Out No l onger eligible based on patient's age to complete [...]
--- OUTSIDE RECORDS SUMMARY | 2024-11-18 17:27 | XMS_ITS | Clinical Summary ---
Author Organization [employer] [facility] Address [address] [place] [address] Care Team Providers Care Diesel Tractor Engine Mechanic Name Role Phone Unavailable Primary Care [...] Description 11/01/2024 10:00 AM EDT Office Visit [facility] ADULT DENTAL [address] [place] [address] Calista Tejeda Advanced periodontitis (Primary Dx); Dental [...] Description 12/09/2024 1:30 PM EDT Office Visit [facility] ADULT DENTAL [address] [place] [address] Kathe Chairez, DDS [address] [place] [address] 05/09/2025 1:00 PM EDT Office Visit [facility] ADULT DENTAL [address] [place] [address] Nikhil, Calista [address] [place] [address] Health Maintenance Due Date Last Done Comments [...]
--- OUTSIDE RECORDS SUMMARY | 2024-11-18 17:27 | XMS_ITS | Encounter Summary ---
Author Organization [employer] [facility] Address [address] 7t [place] [address] Care Team Providers Care Horse And Wagon Driver Name Role Phone Unavailable Primary Care Provider Unavailabl e Encounter Details Date Type Department Care Team ([facility] Contact Info) Description 09/15/2022 Orders Only [facility] ADULT DENTAL [address] [place] [address] Esperanza ChairezRADHA mackenzieS [address] [place] [address] Periapical abscess without sinus (Primary Dx) Social [...] Description 12/09/2024 1:30 PM EDT Office Visit [facility] ADULT DENTAL [address] [place] [address] Esperanza Chairezmia, DDS [address] [place] [address] 05/09/2025 1:00 PM EDT Office Visit [facility] ADULT DENTAL [address] [place] [address] Calista Tejeda [address] [place] [address] documented as of this encounter Visit Diagnoses Diagnosis Periapical abscess without sinus- Primary documented in this encounter
--- OUTSIDE RECORDS SUMMARY | 2024-11-18 17:27 | XMS_ITS | Encounter Summary ---
Author Organization [employer] Address [address] [facility] [address] [place] [address] Care Team Providers Care Dry Folder Cloth Name Role Phone Unavailable Primary Care Provider Unavailabl e Reason for Visit * Reason Onset Date Comments calrification of referral 04/21/2023 Appointment 04/21/2023 Encounter Details Date Type Department Care Team (Late st Contact Info) Description 04/21/2023 Telephone [facility] ADULT DENTAL [address] [place] [address] Kathe Chairez DDS [address] [place], [place] [phone] calrification of referral; Appointment Social History Tobacco [...] a referral back in November for [facility]. He states that he is [...] I asked him if he went to [facility] as the referral stated and he states that he does not know what office he is going to only that it is in [place]. He wants to speak to provider because he does not know if he is getting the treatment he is supposed to be getting DR documented in this encounter Plan of Treatment Upcoming Encounters Date Type Department Care Team (Late st Contact Info) Description 12/09/2024 1:30 PM EDT Office Visit [facility] ADULT DENTAL [address] [place] [address] Kathe Chairez DDS [address] [place] [address] 05/09/2025 1:00 PM EDT Office Visit [facility] ADULT DENTAL [address] [place] [address] Calista Tejeda [address] [place] [address] documented as of this encounter Visit Diagnoses Not on filedocumented in this encounter
--- OUTSIDE RECORDS SUMMARY | 2024-11-18 17:27 | XMS_ITS | Encounter Summary ---
Author Organization [employer] Address [address] [facility] [address] 7t [place] [address] Care Team Providers Care Alarm Investigator Name Role Phone Unavailable Primary Care Provider Unavailabl e Reason for Visit * Reason Onset Date Comments referrral 12/28/2022 Encounter Details Date Type Department Care Team (Late st Contact Info) Description 12/28/2022 Telephone [facility] ADULT DENTAL [address] [place] [address] Kathe Chairez DDS [address] [place], [place] [phone] referrral Social History Tobacco Use Types Packs/Day [...] 12/30/2022 11:25 AM EDT Pt could visit [facility], but he has to call to see if they could help him. To please contact for other online media buyer specialists in the area. Dr. Dawson, however is coming back soon but we don't know exactly when. * Telephone Encounter - Josefa Ruffin - 12/28/2022 3:57 PM EDT Patient called in stating that he contacted [facility] for an appt and was told [...] Description 12/09/2024 1:30 PM EDT Office Visit [facility] ADULT DENTAL [address] [place] [address] Kathe Chairez DDS [address] [place] [address] 05/09/2025 1:00 PM EDT Office Visit [facility] ADULT DENTAL [address] [place] [address] Calista Tejeda [address] [place] [address] documented as of this encounter Visit Diagnoses Not on filedocumented in this encounter
--- OUTSIDE RECORDS SUMMARY | 2024-11-18 17:27 | XMS_ITS | Encounter Summary ---
Author Organization [employer] [facility] Address [address] [place] [address] Care Team Providers Care Specimen Processor Name Role Phone Unavailable Primary Care Provider Unavailabl e Encounter Details Date Type Department Care Team (Latest Contact Info) Description 06/05/2019 Abstract [facility] CONVERSIONS Dental, Provider, DDS Social History [...] Description 12/09/2024 1:30 PM EDT Office Visit [facility] ADULT DENTAL [address] [place] [address] Mancini-Pimentel, Kathe, DDS [address] [place] [address] 05/09/2025 1:00 PM EDT Office Visit [facility] ADULT DENTAL [address] [place] [address] Nikhil, Calista [address] [place] [address] documented as of this encounter Visit Diagnoses Not on filedocumented in this encounter
--- OUTSIDE RECORDS SUMMARY | 2024-11-18 17:27 | XMS_ITS | Encounter Summary ---
Author Organization [employer] [facility] Address [address] [place] [address] Care Team Providers Care Long Haul Truck Driver Name Role Phone Unavailable Primary Care Provider Unavailabl e Reason for Visit * Reason Onset Date Comments referral/xrays 03/17/2023 Encounter Details Date Type Department Care Team (Late st Contact Info) Description 03/17/2023 Telephone [facility] ADULT DENTAL [address] [place] [address] Kathe Chairez DDS [address] [place], [place] [phone] referral/xrays Social History Tobacco Use Types Packs/Day [...] Josefa Ruffin - 03/17/2023 9:52 AM EDT [facility] called stating that patient has an appt today and they need the referral and xrays sent over for visit. I did fax the referral from our department but they requested xrays be emailed [email or web address] retargeting. documented in this encounter Plan of Treatment Upcoming Encounters Date Type Department Care Team (Late st Contact Info) Description 12/09/2024 1:30 PM EDT Office Visit [facility] ADULT DENTAL [address] [place] [address] Kathe Chairez, MASHA [address] [place] [address] 05/09/2025 1:00 PM EDT Office Visit [facility] ADULT DENTAL [address] [place] [address] Calista Tejeda [address] [place] [address] documented as of this encounter Visit Diagnoses Not on filedocumented in this encounter
== END 2024-11-18 15:10 | disposition home or self-care (01) ==
LOC: HO.HOS 14:37
PROVIDERS: PCP Physician Assistant
DX: M67.431 Ganglion, right wrist (principal)
CPT/HCPCS: 99203

== ENCOUNTER → 2024-11-18 14:36 | Outpatient (BNVA) | payer OTHER, SELFPAY | PROVIDERS: PCP Physician Assistant | DX: M67.431 Ganglion, right wrist (principal) | CPT/HCPCS: 99202 ==

== ENCOUNTER 2025-02-26 12:46 | Outpatient (REF) | payer OTHER, SELFPAY ==
--- NOTE | ~2025-02-26 | US_ITS ---
EXAMINATION: US SCROTUM HISTORY: N50.3 - Cyst of epididymis. COMPARISON: Comparison is made with the prior examination dated 08/11/2023. FINDINGS: Real-time grayscale ultrasound imaging of the scrotum was performed. RIGHT TESTICLE: The right testis measures 5.1 x 3.0 x 3.5 cm and demonstrates normal homogeneous echotexture. No masses are seen. The right testis demonstrates normal color Doppler flow. RIGHT EPIDIDYMIS: Normal in size, shape, and vascularity. LEFT TESTICLE: The left testis measures 4.2 x 2.2 x 2.8 cm and demonstrates normal homogeneous echotexture. No masses are seen. The left testis demonstrates normal color Doppler flow. LEFT EPIDIDYMIS: Normal in size, shape, and vascularity. There is a 3 mm epididymal head cyst. VARICOCELE: There are small bilateral varicoceles. HYDROCELE: There is a small left hydrocele containing low-level internal echoes. OTHER COMMENTS: None. US/US scrotum IMPRESSION: 1. 3 mm left epididymal head cyst. 2. Small bilateral varicoceles. 3. Small mildly complex left hydrocele. Electronically signed by: Mundo Cole MD 02/26/2025 01:30 PM EDT
--- OUTSIDE RECORDS SUMMARY | 2025-02-26 13:40 | XMS_ITS | Encounter Summary ---
Author Organization [facility] Address [address] [address] [place] [address] Care Team Providers Care Leak Gang Supervisor Name Role Phone Unavailable Primary Care Provider Unavailabl e Encounter Details Date Type Department Care Team (Latest Contact Info) Description 06/05/2019 Abstract [facility] CONVERSIONS Dental, Provider, DDS Social History [...] Care Team (Late st Contact Info) Description 05/09/2025 1:00 PM EDT Office Visit [facility] ADULT DENTAL [address] [place] [address] Calista Tejeda [address] [place] [address] documented as of this encounter Visit Diagnoses Not on filedocumented in this encounter
--- OUTSIDE RECORDS SUMMARY | 2025-02-26 13:40 | XMS_ITS | Clinical Summary ---
Author Organization [employer] [facility] it Address [address] [place] [address] Care Team Providers Care Heating Equipment Installer Name Role Phone Unavailable Primary Care Provider [...] (2023-2 5 season) 2024 Influenza Vaccine (#1) 2025 HIB Vaccines Aged Out No longer eligi [...] 5 Years) and At-Risk Patients (6 to 49 Years) Aged Out No longer eligible b ased on patient's age to complete this topic RSV Immunization Patients Un dav 20 months Aged Out No longer eligible b ased on patient's age to complete this topic Varicella Vaccines Aged Out No longer eligible based on patient's age to complete this topic
== END 2025-02-26 12:47 | disposition home or self-care (01) ==
LOC: HO.US 12:46
PROVIDERS: PCP Physician Assistant; Visit Provider Nurse Practitioner Family
DX: N50.3 Cyst of epididymis (principal); N43.3 Hydrocele, unspecified
CPT/HCPCS: 76870

== ENCOUNTER → 2025-02-26 12:47 | Outpatient (BNV) | payer OTHER, SELFPAY | PROVIDERS: PCP Physician Assistant; Visit Provider Radiology Diagnostic Radiology | DX: N50.3 Cyst of epididymis (principal); I86.1 Scrotal varices; N43.3 Hydrocele, unspecified | CPT/HCPCS: 76870 ==

== ENCOUNTER → 2025-03-05 09:25 | Outpatient (BNVA) | payer OTHER, SELFPAY | PROVIDERS: PCP Physician Assistant; Visit Provider Physician Assistant Medical | DX: M54.50 Low back pain, unspecified (principal); M79.662 Pain in left lower leg | CPT/HCPCS: 99203 ==

== ENCOUNTER → 2025-03-10 09:13 | Outpatient (BNVA) | payer OTHER, SELFPAY | PROVIDERS: PCP Physician Assistant; Visit Provider Physician Assistant Medical | DX: M54.50 Low back pain, unspecified (principal); M79.662 Pain in left lower leg | CPT/HCPCS: 99213 ==

== ENCOUNTER 2025-03-17 15:36 | Outpatient (AMB) | payer MEDICAID, SELFPAY ==
--- NOTE | 2025-03-17 15:39 | MHC.OFFVIS ---
Intake Visit Reasons: follow up(set) Intake Note: Patient is present for F/U Urology Medication:SILDENAFIL Antibiotic Allergy:NONE Blood Thinner:NONE Professor Of Theology Required: No Professor Of Theology Services: Professor Of Theology Present Professor Of Theology Name: lexsu [id number] Allergies No Known Allergies (No Known Allergies*) Allergy (Verified 03/17/25 16:36) Medication List - Last Reconciled 03/17/25 by PRATIK Martin albuterol sulfate 90 mcg/actuation (Ventolin HFA) 1 puff inhalation Q8H 30 days baclofen 20 mg PO BID 30 days nicotine 1 patch transdermal DAILY 14 days nicotine (polacrilex) 2 mg buccal Q2H PRN 30 days omeprazole 40 mg PO DAILY propranolol 10 mg PO ONCE PRN 15 days sildenafil (Viagra) 100 mg PO ONCE PRN 30 days tramadol 50 mg PO BID PRN 7 days HPI Comments Details: Bran is a pleasant 39-year-old Armenian-speaking male patient of Dr. Solis. He presents to the office today for follow-up of his erectile dysfunction and scrotal discomfort. In discussion with the patient today he reports to be doing and feeling well. He reports feeling episodes of ED he had been experiencing have somewhat subsided and he has not needed to utilize p.r.n. dosing of PDE5 medications. He denies having had any scrotal discomfort since his last office visit here. He denies any bothersome urinary issues or concerns. Previous labs have included testosterone free and total as noted and trended below. Testosterone: 05/07 887 Free testosterone 05/07 127.7 Recent scrotal ultrasound results were reviewed with the patient today 03/07 3 mm left epididymal head cysts, small bilateral varicoceles, and small mildly complex left-sided hydrocele. We did discussed further treatment options and risks and benefits of these treatment options. We will continue with surveillance monitoring of erectile dysfunction as well as varicoceles, epididymal head cysts, and small left hydrocele. We did discussed lifestyle modifications to assist with ED such as limiting/quitting recreational marijuana as well as nicotine dependence. He otherwise denies any bothersome urinary issues. He denies urinary urgency, urinary frequency, incontinence, nocturia, hematuria, dysuria, foul smelling urine, changes to urinary stream, flank pain, fever, and or chills. He is happy with his current voiding parameters. In office urinalysis results reviewed with the patient today. He otherwise offers no other issues or concerns at this time. [facility] Surgical History No pertinent past surgical history Family History Father Hypertension Mother Murder Maternal Grandmother CAD (coronary artery disease) Hypertension Sister In good health Son In good health Social History (Updated 11/18/24 @ 14:50 by DARIUS Hansen) Housing: Apartment Alcohol intake: never Patient Tobacco Use Status: Current everyday Tobacco user Tobacco use type: Cigarette Cigarette Packs Per Day: 0.5 Cigarettes Per Day: 6 e-Cigarette/Vaping Use: Never Used Second Hand Smoke Exposure: Yes Substance Use Type: Marijuana service: No Current occupational status: employed Current occupation: right handed Current occupational exposures/hazards: No Cognitive needs: No Hearing needs: No Vision needs: No Review of Systems Const All systems reviewed & are unremarkable except as noted in HPI and below Physical Exam Const General: cooperative, healthy appearing, comfortable, no acute distress, well developed, alert and awake Nutritional Appearance: thin Orientation/consciousness: patient oriented x3 Limitations: no limitations HEENT Head: Yes normal to inspection, Yes normocephalic and Yes atraumatic Ears: hearing grossly normal bilaterally Eyes General: appearance normal, both eyes and all related structures Neck Neck: Yes normal visual inspection and Yes trachea midline Chest Chest palpation & inspection: normal inspection of the chest Resp Effort & Inspection: normal respiratory effort and able to speak in complete sentences Cardio Rate: regular rate GI Inspection: Yes normal to inspection General: Yes no CVA tenderness Back/Spine/Pelvis Back: no CVA tenderness Skin General skin exam: no rashes or lesions noted Neuro General: patient oriented x3 Extrem General: Yes normal to inspection Psych Appearance: grossly normal and well kempt Mental Status: mental status grossly normal Speech and movement: Normal speech and movement present and Clear speech present Affect: normal affect Attitude: cooperative Thought process: Normal thought process present Thought content: Normal thought content present Insight: Fair insight present (Psych) Judgement: Fair judgement present (Psych) Results AMB Urinalysis, Automated UA Leukoctes 0 Elizabeth/uL Last Edit by DARIUS Hairston on 03/17/25 15:56 UA Nitrite Negative Last Edit by DARIUS Hairston on 03/17/25 15:56 UA Urobilinogen 0.2 mg/dL Last Edit by Alex [facility] on 03/17/25 15:56 UA Protein 0 mg/dL Last Edit by Alex Smith [facility] on 03/17/25 15:56 UA pH 7.0 Last Edit by Alex Smith [facility] on 03/17/25 15:56 UA Blood 0 Rosalio/uL Last Edit by Alex Smith [facility] on 03/17/25 15:56 UA Specific Ubly 1.010 Last Edit by Alex Smith [facility] on 03/17/25 15:56 UA Ketone Negative Last Edit by Alex Smith [facility] on 03/17/25 15:56 UA Bilirubin 0 mg/dL Last Edit by Alex Smith [facility] on 03/17/25 15:56 UA Glucose 0 mg/dL Last Edit by Alex Smith [facility] on 03/17/25 15:56 Results Reviewed Results Reviewed: Laboratory Last Values Urine pH (Auto) 7.0 03/17/25 15:55 Specific Ubly (Auto) 1.010 03/17/25 15:55 Urine Protein (Auto) 0 mg/dL 03/17/25 15:55 Glucose (UA)(Auto) 0 mg/dL 03/17/25 15:55 Urine Ketones (Auto) Negative 03/17/25 15:55 Urine Blood (Auto) 0 Rosalio/uL 03/17/25 15:55 Urine Nitrite (Auto) Negative 03/17/25 15:55 Urine Bilirubin (Auto) 0 mg/dL 03/17/25 15:55 Urine Urobilinogen (Auto) 0.2 mg/dL 03/17/25 15:55 Leukocyte Esterase (Auto) 0 Elizabeth/uL 03/17/25 15:55 Date of Service: 02/26/25 Procedure(s): US scrotum FINDINGS: Real-time grayscale ultrasound imaging of the scrotum was performed. RIGHT TESTICLE: The right testis measures 5.1 x 3.0 x 3.5 cm and demonstrates normal homogeneous echotexture. No masses are seen. The right testis demonstrates normal color Doppler flow. RIGHT EPIDIDYMIS: Normal in size, shape, and vascularity. LEFT TESTICLE: The left testis measures 4.2 x 2.2 x 2.8 cm and demonstrates normal homogeneous echotexture. No masses are seen. The left testis demonstrates normal color Doppler flow. LEFT EPIDIDYMIS: Normal in size, shape, and vascularity. There is a 3 mm epididymal head cyst. VARICOCELE: There are small bilateral varicoceles. HYDROCELE: There is a small left hydrocele containing low-level internal echoes. OTHER COMMENTS: None. IMPRESSION: 1. 3 mm left epididymal head cyst. 2. Small bilateral varicoceles. 3. Small mildly complex left hydrocele. Assessment & Plan Assessment & Plan (1) Epididymal cyst: Code(s): N50.3 - Cyst of epididymis Category: Medical (2) Bilateral varicoceles: Code(s): I86.1 - Scrotal varices Category: Medical (3) Erectile dysfunction: Code(s): N52.9 - Male erectile dysfunction, unspecified Category: Medical Qualifiers: Erectile dysfunction type: drug-induced Qualified Code(s): N52.2 - Drug-induced erectile dysfunction Plan In office urinalysis results reviewed with the patient today; as noted above. Recent scrotal ultrasound results reviewed with the patient today; as noted above. Currently denies any bothersome urinary issues or concerns. He reports be happy with current voiding parameters. We discussed further treatment options of urological conditions as well as risks and benefits of these treatment options. We will continue with surveillance monitoring Will obtain scrotal ultrasound in 1 year We discussed the importance of lifestyle modifications Follow-up in 1 year with imaging; or sooner with any issues, concerns, and or questions. Orders: Orders AMB Urinalysis Automated Today Z13.9 - Encounter for screening, unspecified US scrotum 1 Year N43.3 - Hydrocele, unspecified Patient Instructions: The patient had an opportunity to ask questions regarding the treatment plan. All questions were answered. Physical exam, labs, and imaging were discussed and reviewed in detail. As well as risks, benefits, and discussion of treatment choices. No major barriers to understanding were identified. The patient expressed understanding and agreement with the above treatment plan. The patient was made aware they should contact our office by phone for worsening of their current condition, the appearance of new symptoms, or with any questions or concerns. Compliance is encouraged with any medications and follow up testing that is ordered. It is a privilege to be allowed the opportunity to participate in? your urological care.? Again, if you have any questions or concerns If you have any questions or concerns please do not hesitate to contact me. The office is [phone]. This note is constructed using voice recognition software. While every effort has been made to ensure accuracy patient support tech errors may have been included. Yours sincerely, PRATIK Martin Coding Level of Care Code Est Pt Level 3 (59880) Diagnoses Epididymal cyst N50.3 Bilateral varicoceles I86.1 Drug-induced erectile dysfunction N52.2 Erectile dysfunction type: drug-induced
--- OUTSIDE RECORDS SUMMARY | 2025-03-17 15:39 | XMS_ITS | Clinical Summary ---
Author Organization [employer] [facility] ity Address [address] [place] [address] Care Team Providers Care Bench Grinder Name Role Phone Unavailable Primary Care Provider [...] 2006 COVID-19 Vaccine (2023-2 5 season) 2024 Depression Screening 08/14/2024 Influenza Vaccine (#1) 2025 HIB Vaccines Aged [...]
--- OUTSIDE RECORDS SUMMARY | 2025-03-17 15:39 | XMS_ITS | Encounter Summary ---
Author Organization [facility] Address [address] [facility] [address] [place] [address] Care Team Providers Care Roulette Dealer Name Role Phone Unavailable Primary Care Provider Unavailabl e Encounter Details Date Type Department Care Team (Latest Contact Info) Description 06/05/2019 Abstract [facility] CONVERSIONS Dental, Provider, DDS Social History [...] Description 05/09/2025 1:00 PM EDT Office Visit [facility] ADULT DENTAL [address] [place] [address] Calista Tejeda [address] [place] [address] documented as of this encounter Visit Diagnoses Not on filedocumented in this encounter
== END 2025-03-17 16:17 | disposition home or self-care (01) ==
PROVIDERS: PCP Physician Assistant; Visit Provider Nurse Practitioner Family
DX: N50.3 Cyst of epididymis (principal); I86.1 Scrotal varices; N52.2 Drug-induced erectile dysfunction; Z13.9 Encounter for screening, unspecified
CPT/HCPCS: 99213

== ENCOUNTER → 2025-03-17 15:36 | Outpatient (BNVA) | payer OTHER, SELFPAY | PROVIDERS: PCP Physician Assistant; Visit Provider Nurse Practitioner Family | DX: N50.3 Cyst of epididymis (principal); I86.1 Scrotal varices; N52.2 Drug-induced erectile dysfunction | CPT/HCPCS: 81003; 99212 ==

== ENCOUNTER → 2025-04-10 14:12 | Outpatient (BNVA) | payer OTHER, SELFPAY | PROVIDERS: PCP Physician Assistant; Visit Provider Physician Assistant Medical | DX: M54.50 Low back pain, unspecified (principal); Z02.79 Encounter for issue of other medical certificate | CPT/HCPCS: 99214 ==

== ENCOUNTER 2025-05-26 09:22 | Outpatient (AMB) | payer OTHER, SELFPAY ==
--- OUTSIDE RECORDS SUMMARY | 2025-05-26 09:24 | XMS_ITS | Encounter Summary ---
Author Organization [facility] Address [address] 7[address] [place] [address] Care Team Providers Care Zoogler Name Role Phone Unavailable Primary Care Provider Unavailabl e Encounter Details Date Type Department Care Team (Late st Contact Info) Description 08/03/2023 Abstract [facility] ADULT DENTAL [address] [place] [address] Calista Tejeda [address] [place] [address] Social History Tobacco Use Types Packs/Day Years [...] Care Team (Late st Contact Info) Description 07/14/2025 2:15 PM EST Office Visit [facility] ADULT DENT[facility] [address] [place] [address] Calista Tejeda [address] [place] [address] documented as of this encounter Visit Diagnoses Not on filedocumented in this encounter
--- OUTSIDE RECORDS SUMMARY | 2025-05-26 09:24 | XMS_ITS | Clinical Summary ---
Author Organization [facility] it[facility] Address [address] [place] [address] Care Team Providers Care Ancillary Specialist Name Role Phone Unavailable Primary Care [...] of 3 - 19+ 3-dose series) 2006 HPV Vaccines (1 - 3-dose SCD M series) 2014 Depression Screening 08/14/2024 COVID-19 Vaccine (1 - 2023-2 5 season) 2025 Influenza Vaccine (#1) 2025 RSV Immunization Adult Patie nts (1 - 1-dose 75+ series) 2062 HIB Vaccines Aged Out No longer eligi [...]
--- OUTSIDE RECORDS SUMMARY | 2025-05-26 09:24 | XMS_ITS | Encounter Summary ---
Author Organization [facility] [employer] [facility] Address [address] 7[address] [place] [address] Care Team Providers Care Merchandise Presentation Associate Name Role Phone Unavailable Primary Care Provider Unavailabl e Encounter Details Date Type Department Care Team (Latest Contact Info) Description 06/05/2019 Abstract [facility] CONVERSIONS Dental, Provider, DDS Social History [...] Description 07/14/2025 2:15 PM EST Office Visit [facility] ADULT DENTAL [address] [place] [address] Calista Tejeda [address] [place] [address] documented as of this encounter Visit Diagnoses Not on filedocumented in this encounter
--- OUTSIDE RECORDS SUMMARY | 2025-05-26 09:24 | XMS_ITS | Clinical Summary ---
Author Organization [employer] Address [address] [place] [address] Care Team Providers Care Crm Consultant Name Role Phone Unavailable Primary Care [...] recession, moderate 3 Dental caries 06/05/2023 Immunizations Immunization Administration Dates Next Due Influenza injectable quadrivalent [...] Sign Reading Time Taken Comments Blood Pressure 128/78 12/09/2024 1:36 PM EDT Pulse 76 08/16/2023 2:14 PM EST Temperature - - Respiratory Rate - - Oxygen Saturation - - Inhaled Oxygen Concentration - - Weight - - Height - - Body Mass Index - - Plan of Treatment Upcoming Encounters Date Type Department Care Team (Late st Contact Info) Description 07/14/2025 2:15 PM EST Office Visit [facility] ADULT DENTAL [address] [place] [address] Nikhil, Calista [address] [place] [address] Health Maintenance Due Date Last Done Comments Depression Screening 1987 HIV Screening 1987 Lipid Panel 1987 SDOH Screening 1987 Disability Screening 1987 Alcohol/Substance Use Screening 1999 Family Planning (PISQ) 2002 HPV Vaccines (1 - Male 3-dos e series) 2002 Hepatitis C Screening 2005 Hepatitis A Vaccines (1 of 2 - Risk 2-dose series) 2006 Hepatitis B Vaccines (1 of 3 - 19+ 3-dose series) 2006 COVID-19 Vaccine ( - 2023-2 5 season) 2025 Influenza Vaccine (#1) 2025 , 07/02/2019 Dental Oral Exam 05/05/2025 11/01/2024, 06/21/2023 Dental Prophylaxis 05/05/2025 11/01/2024, 07/17/2023 Dental X-Ray: Bitewings 11/02/2025 11/02/19 25, 06/21/2023, 09/05/2022 Tobacco Screening 12/09/2025 12/09/2024 Dental X-Ray: Full Mouth 06/22/2026 06/21/2023 DTaP/Tdap/Td Vaccines (2 - T d or Tdap) 02/01/2031 02/01/2021, 06/18/2016 Zoster Vaccines (1 of 2) 2037 RSV Patients and Patients Aged 60 years or older (1 - 1-dose 75+ series) 2062 Pneumococcal Vaccine: Pediatrics (0 to 5 Years) and At-Risk Patients (6 to 49) Years Completed 11/02/2023 HIB Vaccines Aged Out No [...] Associated Diagnosis Comments PROPHYLAXIS - ADULT Routine 11/01/2024 1 0:00 AM EDT Advanced periodontitis Dental calculus Teeth missing Gingival bleeding BITEWINGS - 4 RADIOGRAPHIC IMAGES Routine 11/01/2024 10:00 AM EDT Advanced periodontitis Dental calculus Gingival bleeding PERIODIC ORAL EVALUATION - ESTABLISHED PATIENT Routine 11/01/2024 10:00 AM EDT INTRAORAL - COMPLETE SERIES OF RADIOGRAPHIC IMAGES Routine 06/21/2023 1:30 PM EST from Last 3 Months or Most Recently Relevant to Health Maintenance Insurance DENTAL - HSN PARTIAL (MEDICAID) DENTAL - HSN PARTIAL (MEDICAID)
--- OUTSIDE RECORDS SUMMARY | 2025-05-26 09:24 | XMS_ITS | Encounter Summary ---
Author Organization [employer] Address [address] [place] [address] Care Team Providers Care Head Trimmer Name Role Phone Unavailable Primary Care Provider Unavailabl e Reason for Visit * Reason Onset Date Comments calrification of referral 04/21/2023 Appointment 04/21/2023 Encounter Details Date Type Department Care Team (Late st Contact Info) Description 04/21/2023 Telephone [facility] ADULT DENTAL [address] [place] [address] Kathe Chairez DDS [address] [place], [place] [phone] calrification of referral; Appointment Social History Tobacco [...] might need an appt to be seen. Dr. Margarito Acosta * Telephone Encounter - Josefa Augustin - 04/21/2023 2:10 PM EDT Patient called in wanting to speak with provider. He was given a referral back in November for [facility]. He states that he is not sure [...] I asked him if he went to [facility] as the referral stated and he states that he does not know what office he is going to only that it is in [place]. He wants to speak to provider because he does not know if he is getting the treatment he is supposed to be getting DR documented in this encounter Plan of Treatment Upcoming Encounters Date Type Department Care Team (Late st Contact Info) Description 07/14/2025 2:15 PM EST Office Visit [facility] ADULT DENTAL [address] [place] [address] Calista Tejeda [address] [place] [address] documented as of this encounter Visit Diagnoses Not on filedocumented in this encounter
--- OUTSIDE RECORDS SUMMARY | 2025-05-26 09:24 | XMS_ITS | Encounter Summary ---
Author Organization [employer] [facility] Address [address] [place] [address] Care Team Providers Care Technical Writing Lead/Mgr Name Role Phone Unavailable Primary Care Provider Unavailabl e Encounter Details Date Type Department Care Team (Late st Contact Info) Description 09/15/2022 Orders Only [facility] ADULT DENTAL [address] [place] [address] Kathe Chairez, RADHAS [address] [place] [address] Periapical abscess without sinus (Primary Dx) Social [...] Description 07/14/2025 2:15 PM EST Office Visit [facility] ADULT DENTAL [address] [place] [address] Nikhil, Calista [address] [place] [address] documented as of this encounter Visit Diagnoses Diagnosis Periapical abscess without sinus- Primary documented in this encounter
--- OUTSIDE RECORDS SUMMARY | 2025-05-26 09:24 | XMS_ITS | Encounter Summary ---
Author Organization [facility] Address [address] [place] [address] Care Team Providers Care Industrial Green Systems Designer Name Role Phone Unavailable Primary Care Provider Unavailabl e Encounter Details Date Type Department Care Team (Late Contact Info) Description 07/13/2022 Abstract [facility] ADULT DENTAL [address] [place] [address] Dental, Provider, DDS Social History Tobacco Use [...] Upcoming Encounters Date Type Department Care Team ([facility] Contact Info) Description 07/14/2025 2:15 PM EST Office Visit [facility] ADULT DENTAL [address] [place] [address] Quoc Tejedaaris [address] [place] [address] documented as of this encounter Procedures Procedure [...]
--- OUTSIDE RECORDS SUMMARY | 2025-05-26 09:24 | XMS_ITS | Encounter Summary ---
Author Organization [facility] [facility] Address [address] [place] [address] Care Team Providers Care Radius Corner Machine Operator Name Role Phone Unavailable Primary Care Provider Unavailabl e Reason for Visit * Reason Onset Date Comments referral/xrays 03/17/2023 Encounter Details Date Type Department Care Team (Late st Contact Info) Description 03/17/2023 Telephone [facility] ADULT DENTAL [address] [place] [address] Kathe Chairez DDS [address] [place], [place] [phone] referral/xrays Social History Tobacco Use Types Packs/Day [...] Josefa Ruffin - 03/17/2023 9:52 AM EDT [facility] called stating that patient has an appt today and they need the referral and xrays sent over for visit. I did fax the referral from our department but they requested xrays be emailed [email or web address] documented in this encounter Plan of Treatment Upcoming Encounters Date Type Department Care Team (Late st Contact Info) Description 07/14/2025 2:15 PM EST Office Visit [facility] ADULT DENTAL [address] [place] [address] Calista Tejeda [address] [place] [phone] documented as of this encounter Visit Diagnoses Not on filedocumented in this encounter
--- OUTSIDE RECORDS SUMMARY | 2025-05-26 09:24 | XMS_ITS | Encounter Summary ---
Author Organization [employer] Address [address] [place] [address] Care Team Providers Care Production Sanitizer Name Role Phone Unavailable Primary Care Provider Unavailabl e Reason for Visit * Reason Onset Date Comments referrral 12/28/2022 Encounter Details Date Type Department Care Team (Late st Contact Info) Description 12/28/2022 Telephone [facility] ADULT DENTAL [address] [place] [address] Kathe Chairez DDS [address] [place] [address] referrral Social History Tobacco Use Types Packs/Day [...] 12/30/2022 11:25 AM EDT Pt could visit [facility], but he has to call to see if they could help him. To please contact for other powder room attendant specialists in the area. Dr. Dawson, however is coming back soon but we don't know exactly when. * Telephone Encounter - Josefa Ruffin - 12/28/2022 3:57 PM EDT Patient called in stating that he contacted [facility] [facility] for an appt and was [...] Description 07/14/2025 2:15 PM EST Office Visit [facility] ADULT DENTAL [address] [place] [address] Calista Tejeda [address] [place] [address] documented as of this encounter Visit Diagnoses Not on filedocumented in this encounter
--- NOTE | 2025-05-26 09:58 | AM.OFFWIN_ITS ---
Intake Vital Signs 05/26/25 09:59 Height 6 ft 3 in Weight 165 lb BMI 20.6 BP 120/76 Blood Pressure Location Lt brachial Position Sitting Pulse 79 Pulse Source Pulse Oximeter Temp 98.5 F Temp Source Oral Pulse Oximetry (%) 98 Oxygen Delivery Method Room Air Intake Visit Reasons: EP- ear ache, fever, cough Patient Tobacco Use Status: Current everyday Tobacco user Allergies No Known Allergies (No Known Allergies*) Allergy (Verified 05/26/25 10:02) Do you need a note to return to daycare/school/sports/work: No HPI HPI Comments History of Present Illness Details History - The patient is a 39-year-old male pres enting with symptoms of fever, stomach pain, ear pain, and cough. - Reports stomach pain for one week and two days, with associated fever and difficulty eating. - Ear pain noted during coughing, with r ecent onset. - He states that the cough is dry. - History of asthma and smoking, current ly without an inhaler. - No vomiting or diarrhea, and no other household members are ill. - He denies CP, SOB, vomiting, diarrhea, sick contacts, or travel. Physical Exam General: Cooperative, healthy appearing, comfortable and no acute distress Orientation/consciousness: Patient oriented x3 Limitations: No limitations Head: Normal to inspection Ears: Hearing grossly normal bilaterally, external ears normal and TM normal on the right. Erythema noted in the left canal Nose: Normal external nose present, normal nares present, and no nasal discharge present. Face and sinus: Sinuses nontender to palpation. Mouth: Normal oral and palatal mucosa present and moist mucous membranes noted. Throat: Tonsils normal. Uvula is midline. Posterior oropharynx with erythema and no exudates. Eyes: Appearance normal, both eyes and all related structures Neck: Normal visual inspection, full ROM. No lymphadenopathy noted. Respiratory: Clear to auscultation bilaterally. Normal respiratory effort, able to speak in complete sentences. No respiratory distress, not tachypneic, no tripod positioning and no use of accessory muscles. Cardiovascular: Regular rate and rhythm. Normal S1 and S2 Skin: No rashes or lesions noted Patient was informed and verbally consented to the use of an ambient scribe for clinic note documentation during this visit [facility] Surgical History No pertinent past surgical history Family History Father Hypertension Mother Murder Maternal Grandmother CAD (coronary artery disease) Hypertension Sister In good health Son In good health Social History (Updated 11/18/24 @ 14:50 by DARIUS Hansen) Housing: Apartment Alcohol intake: never Patient Tobacco Use Status: Current everyday Tobacco user Tobacco use type: Cigarette Cigarette Packs Per Day: 0.5 Cigarettes Per Day: 6 e-Cigarette/Vaping Use: Never Used Second Hand Smoke Exposure: Yes Substance Use Type: Marijuana service: No Current occupational status: employed Current occupation: right handed Current occupational exposures/hazards: No Cognitive needs: No Hearing needs: No Vision needs: No Review of Systems Const All systems reviewed & are unremarkable except as noted in HPI and below Physical Exam Vital Signs: Last Vital Signs Temp 98.5 F 05/26/25 09:59 Pulse 79 05/26/25 09:59 BP 120/76 05/26/25 09:59 Pulse Ox 98 05/26/25 09:59 Oxygen Delivery Method Room Air 05/26/25 09:59 BMI result Body Mass Index 20.6 Assessment & Plan Assessment & Plan (1) Left ear pain: Code(s): H92.02 - Otalgia, left ear (2) Cough: Code(s): R05.9 - Cough, unspecified Qualifiers: Cough type: acute Qualified Code(s): R05.1 - Acute cough (3) Fever: Code(s): R50.9 - Fever, unspecified Qualifiers: Fever type: unspecified Qualified Code(s): R50.9 - Fever, unspecified Plan Most likely URI vs covid vs flu vs RVS also has an OM in the left ear plan 1. Acute Otitis Media - Antibiotics prescribed for ear infection. 2. Upper Respiratory Infection - Respiratory swab conducted for COVID-19, RSV, and influenza testing. - Advised to maintain hydration and follow a bland diet as tolerated. - Cough medicine prescribed for symptomatic relief. - Inhaler prescribed as needed for cough - tylenol or motrin as needed for cough or fever - follow up with PCP Orders: Orders Resp Pathogen Panel - [facility] [place] J06.9 - Acute upper respiratory infection, unspecified Medications: New albuterol sulfate 90 mcg/actuation 2 puffs inhalation Q6H PRN 8.5 grams 0RF shortness of breath or wheezing or cough benzonatate 100 mg PO bid-tid PRN 20 caps 0RF Cough 7 days amoxicillin-pot clavulanate 875-125 mg 1 tab PO Q12H 14 tabs 0RF Coding Level of Care Code Est Pt Level 4 (80805) Diagnoses Left ear pain H92.02 Acute cough R05.1 Cough type: acute Fever, unspecified fever cause R50.9 Fever type: unspecified
[2025-05-26 09:59] VITALS: BP 120/76; PULSE 79; TEMP 36.9; O2SAT 98; BMI 20.6
== END 2025-05-26 10:56 | disposition home or self-care (01) ==
PROVIDERS: PCP Physician Assistant; Visit Provider Physician Assistant Medical
DX: H92.02 Otalgia, left ear (principal); R05.1 Acute cough; R50.9 Fever, unspecified

== ENCOUNTER 2025-05-26 09:22 | Outpatient (REF) | payer OTHER, SELFPAY ==
[2025-05-26 14:28] LABS: Chlamydia pneumoniae PCR Not Detected (Not Detect.); Coronavirus 229E PCR Not Detected (Not Detect.); Coronavirus HKU1 PCR Not Detected (Not Detect.); Coronavirus NL63 PCR Not Detected (Not Detect.); Coronavirus OC43 PCR Not Detected (Not Detect.); RSV PCR Not Detected (Not Detect.); Rhino/Enterovirus PCR Detected (Not Detect.)
[2025-05-26 14:43] LABS: Influenza A H1 PCR Not Detected (Not Detect.); Influenza A H1-2009 PCR Not Detected (Not Detect.); Influenza A H3 PCR Not Detected (Not Detect.); SARS-CoV-2 PCR Not Detected (Not Detect.)
== END 2025-05-26 09:23 | disposition home or self-care (01) ==
LOC: HO.LNP 09:22
PROVIDERS: PCP Physician Assistant; Visit Provider Physician Assistant Medical
DX: H92.02 Otalgia, left ear (principal); J06.9 Acute upper respiratory infection, unspecified; R05.1 Acute cough; R50.9 Fever, unspecified; F17.210 Nicotine dependence, cigarettes, uncomplicated
CPT/HCPCS: 87633; 99212